=== PATIENT | male | born 1985 | race African-American/Black ===

== ENCOUNTER 2018-02-18 09:27 | Inpatient (IN) | payer OTHER ==
[2018-02-18 09:54] VITALS: BMI 25.1
--- NOTE | 2018-02-18 12:55 | HP ---
CIWA Score - CIWA Score Nausea/Vomitin Muscle Tremors: 3 Anxiety: 3 Agitation: 3 Paroxysmal Sweats: 1-Minimal Palms Moist Orientation: 0-Oriented Tacttile Disturbances: 1-Very Mild Itch/Numbness Auditory Disturbances: 1-Very Mild Visual Disturbances: 0-None Headache: 2-Mild CIWA-Ar Total Score: 17 Admission ROS BHS - HPI Chief Complaint: i need help to stop drinking alcohol,marijuana, Allergies/Adverse Reactions: Allergies Allergy/AdvReac Type Severity Reaction Status Date / Time No Known Allergies Allergy Verified 02/18/18 10:05 History of Present Illness: thi s32 years old male with alcohol and marijuana dependence,seeking detox, withdrawal symptom,last detox [facility] 12/06 not completed syncope htn ,peptic ulcer, nicotine dependence multiple admissions for detox but keep relapsing bipolar disorder longest period of sobriety 2 months seen in [place] last night Exam Limitations: No Limitations - Ebola screening Have you traveled outside of the country in the last 21 days: No Have you been sick,other than usual withdrawal symptoms: No - Review of Systems Constitutional: Loss of Appetite, Malaise, Night Sweats, Changes in sleep, Weakness EENT: reports: Tearing, Nose Congestion Respiratory: reports: No Symptoms reported Cardiac: reports: Palpitations GI: reports: Diarrhea, Nausea, Vomiting, Abdominal cramping : reports: No Symptoms Reported Musculoskeletal: reports: Back Pain, Muscle Pain Integumentary: reports: Dryness Neuro: reports: Headache, Tremors Endocrine: reports: No Symptoms Reported Hematology: reports: No Symptoms Reported Psychiatric: reports: No Sypmtoms Reported, Judgement Intact, Mood/Affect Appropiate, Orientated x3 (bipolar disorder) Patient History - Patient Medical History Hx Anemia: No Hx Asthma: No Hx Chronic Obstructive Pulmonary Disease (COPD): No Hx Cancer: No Hx Cardiac Disorders: No Hx Hypertension: Yes (non compliant with meds.) Hx Hypercholesterolemia: No Hx Pacemaker: No HX Cerebrovascular Accident: No Hx Seizures: No Hx Dementia: No Hx Diabetes: No Hx Gastrointestinal Disorders: Yes (peptic ulcer) Hx Liver Disease: No Hx Genitourinary Disorders: No Hx Sexually Transmitted Disorders: No Hx Renal Disease (ESRD): No Hx Thyroid Disease: No Hx Human Immunodeficiency Virus (HIV): No (last 12/06 negative) Hx Hepatitis C: No Hx Depression: Yes Hx Suicide Attempt: No Hx Bipolar Disorder: Yes Hx Schizophrenia: No Other Medical History: no suicidal,no homicidal - Patient Surgical History Past Surgical History: Yes Other Surgical History: R inguinal hernia repair.in 1995 - PPD History Previous Implant?: Yes Documented Results: Negative w/o proof Implanted On Prior [facility] Admission?: No PPD to be Administered?: Yes - Smoking Cessation Smoking history: Current every day smoker Have you smoked in the past 12 months: Yes Aproximately how many cigarettes per day: 10 Hx Chewing Tobacco Use: No Initiated information on smoking cessation: Yes 'Breaking Loose' booklet given: 02/18/18 - Substance & Tx. History Hx Alcohol Use: Yes Hx Substance Use: Yes Substance Use Type: Alcohol, Cocaine, Marijuana Hx Substance Use Treatment: Yes ([facility] 12/06) - Substances Abused Alcohol Route: Oral Frequency: Daily Amount used: 1 PINT OF RUM AND UP Age of first use: 12 Date of Last Use: 02/17/18 Marijuana/Hashish Route: Smoking Frequency: Daily Amount used: 5-6 BLUNTS Age of first use: 14 Date of Last Use: 02/17/18 PCP Route: Smoking Frequency: 1-3 times last 30 days Amount used: $60 Age of first use: 13 Date of Last Use: 02/11/18 Cocaine Route: Inhalation Frequency: 1-2 times per week Amount used: 1 AND 1/2 BAGS Age of first use: 15 Date of Last Use: 02/11/18 Family Disease History - Family Disease History Family Disease History: Heart Disease: Father (alcohol,), Other: Father , Mother (alcohol,) Admission Physical Exam [facility] - Vital Signs Vital Signs: Vital Signs - 24 hr 02/18/18 09:52 Temperature 97.9 F Pulse Rate 73 Respiratory 18 Rate Blood Pressure 138/93 - Physical General Appearance: Yes: Moderate Distress, Tremorous, Irritable, Sweating, Anxious HEENTM: Yes: Normal ENT Inspection, FREDIS, Pharynx Normal Respiratory: Yes: Lungs Clear, Normal Breath Sounds, No Respiratory Distress Neck: Yes: Within Normal Limits, Supple, Trachea in good position Breast: Yes: Within Normal Limits Cardiology: Yes: Within Normal Limits, Regular Rhythm, Regular Rate, S1, S2 Abdominal: Yes: Within Normal Limits, Normal Bowel Sounds, Non Tender, Flat, Soft, Surgical Scar Genitourinary: Yes: Within Normal Limits Back: Yes: Muscle Spasm Musculoskeletal: Yes: full range of Motion, Back pain, Muscle Pain Extremities: Yes: Tremors Neurological: Yes: senior maintenance machinist II-XII NML intact, Fully Oriented, Alert, Motor Strength 5/5 Integumentary: Yes: Dry Lymphatic: Yes: Within Normal Limits - Diagnostic (1) Alcohol dependence with uncomplicated withdrawal Current Visit: Yes Status: Acute (2) Cocaine dependence Current Visit: Yes Status: Acute (3) Cannabis dependence Current Visit: Yes Status: Acute (4) PCP (phencyclidine) abuse Current Visit: Yes Status: Acute (5) Essential hypertension Current Visit: Yes Status: Acute (6) Nicotine dependence Current Visit: Yes Status: Acute (7) Bipolar disorder Current Visit: Yes Status: Acute Cleared for Admission [facility] - Detox or Rehab [facility] Level of Care: Medically Managed Detox Regimen/Protocol: Librium [facility] Breath Alcohol Content Breath Alcohol Content: 0 Urine Drug Screen - Results Drug Screen Negative: No Urine Drug Screen Results: THC-Marijuana
[2018-02-18] MEDS ORDERED: chlordiazePOXIDE HCL 25 MG CAPSULE PO PRN (13:05)
[2018-02-18] MEDS ORDERED: MAG HYDROX/AL HYDROX/SIMETH 30 ML UNIT-DOSE CUP PO PRN (13:05)
[2018-02-18] MEDS ORDERED: LOPERAMIDE HCL 2 MG CAPSULE PO PRN (13:05)
[2018-02-18] MEDS ORDERED: guaiFENesin/D-METHORPHAN HB 10 ML UNIT-DOSE CUPS PO PRN (13:05)
[2018-02-18] MEDS ORDERED: P-EPHED 60MG/TRIPROLIDI 2.5MG TABLET PO PRN (13:05)
[2018-02-18] MEDS ORDERED: MAGNESIUM HYDROX 2400MG/30ML ORAL SUSPENSION 30 ML CUP PO PRN (13:05)
[2018-02-18] MEDS ORDERED: ACETAMINOPHEN 325 MG TABLET (FP) PO PRN (13:05)
[2018-02-18] MEDS ORDERED: hydrOXYzine PAMOATE 50 MG CAPSULE (FP) PO PRN (13:05)
[2018-02-18] MEDS ORDERED: MENTHOL/PHENOL 1 EACH UD MM PRN (13:05)
[2018-02-18] MEDS ORDERED: MAGNESIUM CITRATE 300 ML BOTTLE PO PRN (13:05)
[2018-02-18] MEDS: IBUPROFEN 400 MG TABLET (FP) PO PRN (14:34)
--- NOTE | 2018-02-18 15:49 | EKG ---
Test Reason : Blood Pressure : / mmHG Vent. Rate : 067 BPM Atrial Rate : 067 BPM P-R Int : 148 ms QRS Dur : 094 ms QT Int : 414 ms P-R-T Axes : 074 -06 021 degrees QTc Int : 437 ms NORMAL SINUS RHYTHM POSSIBLE LEFT ATRIAL ENLARGEMENT INCOMPLETE RIGHT BUNDLE BRANCH BLOCK POSSIBLE ANTERIOR INFARCT , AGE UNDETERMINED ABNORMAL ECG NO PREVIOUS ECGS AVAILABLE Confirmed by LUANN MISHRA MD ([id number]) on 02/18/2018 3:49:13 PM Referred By: Indira Costa Confirmed By:LUANN MISHRA MD
[2018-02-18] MEDS: chlordiazePOXIDE HCL 25 MG CAPSULE PO SCH ×2 (17:41→22:48)
[2018-02-18 19:03] LABS: URINE APPEARANCE TURBID; URINE BILIRUBIN NEGATIVE (<2.0 mg/dL); URINE COLOR AMBER; URINE GLUCOSE (UA) NEGATIVE (NEGATIVE); URINE KETONE TRACE (NEGATIVE); URINE NITRITE NEGATIVE (NEGATIVE); URINE PROTEIN NEGATIVE (NEGATIVE); URINE UROBILINOGEN NEGATIVE mg/dL (0.2-1.0)
[2018-02-18 19:09] LABS: URINE LEUK ESTERASE 2+ (NEGATIVE)
[2018-02-18 19:18] LABS: EPI CELLS RARE /HPF (FEW); URINE BACTERIA RARE /hpf (NONE SEEN)
[2018-02-18] MEDS: THIAMINE HCL 100 MG TABLET (FP) PO SCH (22:48)
[2018-02-19] MEDS: chlordiazePOXIDE HCL 25 MG CAPSULE PO SCH ×4 (05:29→22:19)
[2018-02-19 09:48] LABS: HEMATOCRIT 41.5 % (35.4-49); MCH 33.8 pg (25.7-33.7); MCHC 33.8 g/dl (32.0-35.9); MEAN PLT VOLUME 9.5 fl (7.5-11.1); PLATELET COUNT 165 K/MM3 (134-434); RBC 4.15 M/mm3 (4.00-5.60); RDW 13.1 % (11.9-15.9); WHITE BLOOD COUNT 10.7 K/mm3 (4.0-10.0)
[2018-02-19] MEDS: PRENATAL VITAMINS W/ FOLIC ACID TABLET (FP) PO SCH (10:05)
[2018-02-19 10:20] LABS: ALBUMIN 4.1 g/dl (3.4-5.0); ANION GAP 8 MMOL/L (8-16); BLOOD UREA NITROGEN 15 mg/dL (7-18); CALCIUM 8.6 mg/dL (8.5-10.1); CHLORIDE 100 mmol/L (98-107); CO2 28 mmol/L (21-32); GLUCOSE,RANDOM 73 mg/dL (74-106); POTASSIUM 4.1 mmol/L (3.5-5.1); SODIUM 136 mmol/L (136-145)
[2018-02-19 10:23] LABS: ALK PHOS 65 U/L (45-117); BILIRUBIN,TOTAL 0.5 mg/dL (0.2-1.0); CREATININE 1.1 mg/dL (0.7-1.3); SGOT/AST 394 U/L (15-37); SGPT/ALT 109 U/L (12-78); TOT PROT 8.1 g/dl (6.4-8.2)
--- NOTE | 2018-02-19 13:46 | CONSULT ---
[facility] Psychiatric Consult - Data Date of interview: 02/19/18 Admission source: [facility] Identifying data: First admission to [facility] for this 32 y/o AA male, self- referred for detoxification treatment (alcohol,cannabis dependence).Patient is single,a father of one,domiciled,unemployed and supported on SSI benefits since age [age] (learning disorder as per self-report). Substance Abuse History: Discussed with the patient in this session.Mr Rika admits to sporadic use of phencyclidine,cocaine,canabis and alcohol (one pint of rum daily) since age 14-15.More details in current [facility] reports as follows : Smoking history: Current every day smoker. Have you smoked in the past 12 months: Yes. Aproximately how many cigarettes per day: 10. Hx Chewing Tobacco Use: No. Initiated information on smoking cessation: Yes. 'Breaking Loose' booklet given: 02/18/18. - Substance & Tx. History. Hx Alcohol Use: Yes. Hx Substance Use: Yes. Substance Use Type: Alcohol, Cocaine, Marijuana. Hx Substance Use Treatment: Yes ([facility] 12/06). - Substances Abused. Alcohol. Route: Oral. Frequency: Daily. Amount used: 1 PINT OF RUM AND UP. Age of first use: 12. Date of Last Use: 02/17/18. Marijuana/Hashish. Route: Smoking. Frequency: Daily. Amount used: 5-6 BLUNTS. Age of first use: 14. Date of Last Use: 02/17/18. PCP. Route: Smoking. Frequency: 1-3 times last 30 days. Amount used: $60. Age of first use: 13. Date of Last Use: 02/11. Cocaine. Route: Inhalation. Frequency: 1-2 times per week. Amount used: 1 AND 1/2 BAGS. Age of first use: 15. Date of Last Use: 02/11/18 Medical History: Remarkable for chronic lumbar pain,head trauma from fall from stairs (four months ago during state of ETOH intoxication) with resulting surgery,migraine headaches,peptic ulcer disease,hypertension and history of right inguinal herniorraphy. Psychiatric History: Patient denies history of psychiatric hospitalizations but he endorses prior contact with psychiatrist at the [facility] (2-3 years ago).Diagnosed, at the time, with Bipolar Disorder.Never placed on psychotropic medications due to failure to keep his intake appointments.Has been lost to follow-up for several months.Mr Meléndez denies history of suicide attempts. Physical/Sexual Abuse/Trauma History: Patient denies. Additional Comment: Urine Drug Screen Results: THC-Marijuana.Noted. Mental Status Exam - Mental Status Exam Alert and Oriented to: Time, Place, Person Cognitive Function: Good Patient Appearance: Well Groomed (bald,noted linear scar on right side of scalp) Mood: Withdrawn, Anxious (mildly anxious), Hopeful Affect: Appropriate, Normal Range Patient Behavior: Fatigued, Appropriate, Cooperative Speech Pattern: Clear, Appropriate Voice Loudness: Normal Thought Process: Goal Oriented Thought Disorder: Not Present Hallucinations: Denies Suicidal Ideation: Denies Homicidal Ideation: Denies Insight/Judgement: Poor Sleep: Well Appetite: Good Muscle strength/Tone: Normal Gait/Station: Normal Psychiatric Findings - Problem List ([place] 1, 2,3) (1) Alcohol dependence with uncomplicated withdrawal Current Visit: Yes Status: Acute (2) Cannabis dependence Current Visit: Yes Status: Acute (3) Cocaine dependence Current Visit: Yes Status: Acute (4) PCP (phencyclidine) abuse Current Visit: Yes Status: Acute Comment: As per self-report.Toxicology is negative for PCP at time of admission. (5) Nicotine dependence Current Visit: Yes Status: Acute (6) Substance induced mood disorder Current Visit: Yes Status: Suspected (7) Insomnia Current Visit: Yes Status: Acute Comment: Moderate.Good response to melatonin at bedside. - Initial Treatment Plan Initial Treatment Plan: Psychoeducation.Sleep hygiene discussed.Group therapy.Detoxification in progress.Observation.
--- NOTE | 2018-02-19 14:33 | PN ---
[facility] CIWA - CIWA Score Nausea/Vomitin-Mild Nausea/No Vomiting Muscle Tremors: 4-Moderate,w/Arms Extend Anxiety: 4-Mod. Anxious/Guarded Agitation: 4-Moderately Restless Paroxysmal Sweats: 1-Minimal Palms Moist Orientation: 0-Oriented Tacttile Disturbances: 0-None Auditory Disturbances: 0-None Visual Disturbances: 0-None Headache: 1-Very Mild CIWA-Ar Total Score: 15 BHS Progress Note (SOAP) Subjective: sweat tremor trouble sleep at night restlessness anxiety Objective: 02/19/18 14:30 Vital Signs Temperature 98.4 F 02/19/18 13:51 Pulse Rate 56 L 02/19/18 13:51 Respiratory Rate 18 02/19/18 13:51 Blood Pressure 123/76 02/19/18 13:51 O2 Sat by Pulse Oximetry (%) Laboratory Last Values WBC 10.7 K/mm3 (4.0-10.0) H 02/19/18 06:00 RBC 4.15 M/mm3 (4.00-5.60) 02/19/18 06:00 Hgb 14.0 GM/dL (11.7-16.9) 02/19/18 06:00 Hct 41.5 % (35.4-49) 02/19/18 06:00 MCV 100.0 fl (80-96) H 02/19/18 06:00 MCH 33.8 pg (25.7-33.7) H 02/19/18 06:00 MCHC 33.8 g/dl (32.0-35.9) 02/19/18 06:00 RDW 13.1 % (11.9-15.9) 02/19/18 06:00 Plt Count 165 K/MM3 (134-434) 02/19/18 06:00 MPV 9.5 fl (7.5-11.1) 02/19/18 06:00 Sodium 136 mmol/L (136-145) 02/19/18 06:00 Potassium 4.1 mmol/L (3.5-5.1) 02/19/18 06:00 Chloride 100 mmol/L (98-107) 02/19/18 06:00 Carbon Dioxide 28 mmol/L (21-32) 02/19/18 06:00 Anion Gap 8 MMOL/L (8-16) 02/19/18 06:00 BUN 15 mg/dL (7-18) 02/19/18 06:00 Creatinine 1.1 mg/dL (0.7-1.3) 02/19/18 06:00 Creat Clearance w eGFR > 60 (>60) 02/19/18 06:00 Random Glucose 73 mg/dL (74-106) L 02/19/18 06:00 Calcium 8.6 mg/dL (8.5-10.1) 02/19/18 06:00 Total Bilirubin 0.5 mg/dL (0.2-1.0) 02/19/18 06:00 AST 394 U/L (15-37) H 02/19/18 06:00 ALT 109 U/L (12-78) H 02/19/18 06:00 Alkaline Phosphatase 65 U/L (45-117) 02/19/18 06:00 Total Protein 8.1 g/dl (6.4-8.2) 02/19/18 06:00 Albumin 4.1 g/dl (3.4-5.0) 02/19/18 06:00 Urine Color [place] 02/18/18 18:30 Urine Appearance Turbid 02/18/18 18:30 Urine pH 6.0 (5.0-8.0) 02/18/18 18:30 Ur Specific [place] 1.020 (1.001-1.035) 02/18/18 18:30 Urine Protein Negative (NEGATIVE) 02/18/18 18:30 Urine Glucose (UA) Negative (NEGATIVE) 02/18/18 18:30 Urine Ketones Trace (NEGATIVE) H 02/18/18 18:30 Urine Blood 1+ (NEGATIVE) H 02/18/18 18:30 Urine Nitrite Negative (NEGATIVE) 02/18/18 18:30 Urine Bilirubin Negative (<2.0 mg/dL) 02/18/18 18:30 Urine Urobilinogen Negative mg/dL (0.2-1.0) 02/18/18 18:30 Ur Leukocyte Esterase 2+ (NEGATIVE) H 02/18/18 18:30 Urine WBC (Auto) 24 /hpf (3-5) 02/18/18 18:30 Urine RBC (Auto) 1 /hpf (0-3) 02/18/18 18:30 Ur Epithelial Cells Rare /HPF (FEW) 02/18/18 18:30 Urine Bacteria Rare /hpf (NONE SEEN) 02/18/18 18:30 RPR Titer Nonreactive (NONREACTIVE) 02/19/18 06:00 HIV 1&2 Antibody Screen Negative 02/18/18 11:40 HIV P24 Antigen Negative 02/18/18 11:40 repeat ast alt ua increase oral fluid Assessment: 02/19/18 14:31 alcohol withdrawal sx Plan: continue alcohol detox increase oral fluid personal hygiene bactrim ds bid
[2018-02-19] MEDS: IBUPROFEN 400 MG TABLET (FP) PO PRN (17:02)
[2018-02-19 20:24] LABS: URINE APPEARANCE CLEAR; URINE BILIRUBIN NEGATIVE (<2.0 mg/dL); URINE COLOR YELLOW; URINE GLUCOSE (UA) NEGATIVE (NEGATIVE); URINE KETONE NEGATIVE (NEGATIVE); URINE LEUK ESTERASE NEGATIVE (NEGATIVE); URINE NITRITE NEGATIVE (NEGATIVE); URINE PROTEIN NEGATIVE (NEGATIVE)
[2018-02-19] MEDS: THIAMINE HCL 100 MG TABLET (FP) PO SCH (22:19)
[2018-02-19] MEDS: SULFAMETHOXAZOLE/TRIMETHOPRIM 800MG/160MG D.S. TABLET PO SCH (22:19)
[2018-02-19] MEDS: MELATONIN 5 MG TABLETS PO PRN (22:20)
[2018-02-20] MEDS: chlordiazePOXIDE HCL 25 MG CAPSULE PO SCH ×2 (06:09→10:07)
[2018-02-20] MEDS: SULFAMETHOXAZOLE/TRIMETHOPRIM 800MG/160MG D.S. TABLET PO SCH ×2 (10:07→22:46)
[2018-02-20] MEDS: PRENATAL VITAMINS W/ FOLIC ACID TABLET (FP) PO SCH (10:07)
[2018-02-20 10:58] LABS: SGOT/AST 212 U/L (15-37); SGPT/ALT 107 U/L (12-78)
--- NOTE | 2018-02-20 12:38 | PN ---
[facility] CIWA - CIWA Score Nausea/Vomitin-No Nausea/No Vomiting Muscle Tremors: 4-Moderate,w/Arms Extend Anxiety: 4-Mod. Anxious/Guarded Agitation: 3 Paroxysmal Sweats: 1-Minimal Palms Moist Orientation: 0-Oriented Tacttile Disturbances: 0-None Auditory Disturbances: 0-None Visual Disturbances: 0-None Headache: 0-None Present CIWA-Ar Total Score: 12 BHS Progress Note (SOAP) Subjective: sweat tremor gi distress restlessness wants own shoes to walking around the hallway Objective: 02/20/18 12:39 Vital Signs Temperature 97.7 F 02/20/18 09:37 Pulse Rate 64 02/20/18 09:37 Respiratory Rate 20 02/20/18 09:37 Blood Pressure 116/70 02/20/18 09:37 O2 Sat by Pulse Oximetry (%) Laboratory Last Values WBC 10.7 K/mm3 (4.0-10.0) H 02/19/18 06:00 RBC 4.15 M/mm3 (4.00-5.60) 02/19/18 06:00 Hgb 14.0 GM/dL (11.7-16.9) 02/19/18 06:00 Hct 41.5 % (35.4-49) 02/19/18 06:00 MCV 100.0 fl (80-96) H 02/19/18 06:00 MCH 33.8 pg (25.7-33.7) H 02/19/18 06:00 MCHC 33.8 g/dl (32.0-35.9) 02/19/18 06:00 RDW 13.1 % (11.9-15.9) 02/19/18 06:00 Plt Count 165 K/MM3 (134-434) 02/19/18 06:00 MPV 9.5 fl (7.5-11.1) 02/19/18 06:00 Sodium 136 mmol/L (136-145) 02/19/18 06:00 Potassium 4.1 mmol/L (3.5-5.1) 02/19/18 06:00 Chloride 100 mmol/L (98-107) 02/19/18 06:00 Carbon Dioxide 28 mmol/L (21-32) 02/19/18 06:00 Anion Gap 8 MMOL/L (8-16) 02/19/18 06:00 BUN 15 mg/dL (7-18) 02/19/18 06:00 Creatinine 1.1 mg/dL (0.7-1.3) 02/19/18 06:00 Creat Clearance w eGFR > 60 (>60) 02/19/18 06:00 Random Glucose 73 mg/dL (74-106) L 02/19/18 06:00 Calcium 8.6 mg/dL (8.5-10.1) 02/19/18 06:00 Total Bilirubin 0.5 mg/dL (0.2-1.0) 02/19/18 06:00 AST 212 U/L (15-37) H D 02/20/18 07:40 ALT 107 U/L (12-78) H 02/20/18 07:40 Alkaline Phosphatase 65 U/L (45-117) 02/19/18 06:00 Ammonia 61.69 umol/L (11-32) H 02/20/18 07:40 Total Protein 8.1 g/dl (6.4-8.2) 02/19/18 06:00 Albumin 4.1 g/dl (3.4-5.0) 02/19/18 06:00 Urine Color Yellow 02/19/18 15:10 Urine Appearance Clear 02/19/18 15:10 Urine pH 8.0 (5.0-8.0) D 02/19/18 15:10 Ur Specific [place] 1.017 (1.001-1.035) 02/19/18 15:10 Urine Protein Negative (NEGATIVE) 02/19/18 15:10 Urine Glucose (UA) Negative (NEGATIVE) 02/19/18 15:10 Urine Ketones Negative (NEGATIVE) 02/19/18 15:10 Urine Blood Negative (NEGATIVE) 02/19/18 15:10 Urine Nitrite Negative (NEGATIVE) 02/19/18 15:10 Urine Bilirubin Negative (<2.0 mg/dL) 02/19/18 15:10 Urine Urobilinogen 2.0 mg/dL (0.2-1.0) 02/19/18 15:10 Ur Leukocyte Esterase Negative (NEGATIVE) 02/19/18 15:10 Urine WBC (Auto) 24 /hpf (3-5) 02/18/18 18:30 Urine RBC (Auto) 1 /hpf (0-3) 02/18/18 18:30 Ur Epithelial Cells Rare /HPF (FEW) 02/18/18 18:30 Urine Bacteria Rare /hpf (NONE SEEN) 02/18/18 18:30 RPR Titer Nonreactive (NONREACTIVE) 02/19/18 06:00 HIV 1&2 Antibody Screen Negative 02/18/18 11:40 HIV P24 Antigen Negative 02/18/18 11:40 lab noted lactulose Assessment: 02/20/18 12:41 withdrawal sx 02/20/18 12:43 ammonia elevation Plan: continue detox lactulose
[2018-02-20] MEDS: IBUPROFEN 400 MG TABLET (FP) PO PRN (13:57)
[2018-02-20] MEDS: LACTULOSE 20 GM/30 ML UDC (FOR ORAL USE ONLY) PO SCH ×2 (13:57→22:46)
[2018-02-20] MEDS: chlordiazePOXIDE 5 MG CAPSULE PO SCH ×2 (18:16→22:46)
[2018-02-20] MEDS: THIAMINE HCL 100 MG TABLET (FP) PO SCH (22:46)
[2018-02-20] MEDS: MELATONIN 5 MG TABLETS PO PRN (22:47)
[2018-02-21] MEDS: chlordiazePOXIDE 5 MG CAPSULE PO SCH ×2 (05:36→10:05)
[2018-02-21] MEDS: LACTULOSE 20 GM/30 ML UDC (FOR ORAL USE ONLY) PO SCH ×3 (05:38→22:19)
[2018-02-21] MEDS: BACLOFEN 10 MG TABLET (FP) PO PRN ×2 (05:38→17:52)
[2018-02-21 09:57] LABS: SGOT/AST 116 U/L (15-37); SGPT/ALT 97 U/L (12-78)
[2018-02-21] MEDS: SULFAMETHOXAZOLE/TRIMETHOPRIM 800MG/160MG D.S. TABLET PO SCH ×2 (10:05→22:19)
[2018-02-21] MEDS: PRENATAL VITAMINS W/ FOLIC ACID TABLET (FP) PO SCH (10:05)
--- NOTE | 2018-02-21 11:38 | PN ---
S Progress Note (SOAP) Subjective: sleep better at night no tremor no gi distress Objective: 02/21/18 11:38 Vital Signs Temperature 97.7 F 02/21/18 09:29 Pulse Rate 76 02/21/18 09:29 Respiratory Rate 16 02/21/18 09:29 Blood Pressure 122/71 02/21/18 09:29 O2 Sat by Pulse Oximetry (%) Laboratory Last Values WBC 10.7 K/mm3 (4.0-10.0) H 02/19/18 06:00 RBC 4.15 M/mm3 (4.00-5.60) 02/19/18 06:00 Hgb 14.0 GM/dL (11.7-16.9) 02/19/18 06:00 Hct 41.5 % (35.4-49) 02/19/18 06:00 MCV 100.0 fl (80-96) H 02/19/18 06:00 MCH 33.8 pg (25.7-33.7) H 02/19/18 06:00 MCHC 33.8 g/dl (32.0-35.9) 02/19/18 06:00 RDW 13.1 % (11.9-15.9) 02/19/18 06:00 Plt Count 165 K/MM3 (134-434) 02/19/18 06:00 MPV 9.5 fl (7.5-11.1) 02/19/18 06:00 Sodium 136 mmol/L (136-145) 02/19/18 06:00 Potassium 4.1 mmol/L (3.5-5.1) 02/19/18 06:00 Chloride 100 mmol/L (98-107) 02/19/18 06:00 Carbon Dioxide 28 mmol/L (21-32) 02/19/18 06:00 Anion Gap 8 MMOL/L (8-16) 02/19/18 06:00 BUN 15 mg/dL (7-18) 02/19/18 06:00 Creatinine 1.1 mg/dL (0.7-1.3) 02/19/18 06:00 Creat Clearance w eGFR > 60 (>60) 02/19/18 06:00 Random Glucose 73 mg/dL (74-106) L 02/19/18 06:00 Calcium 8.6 mg/dL (8.5-10.1) 02/19/18 06:00 Total Bilirubin 0.5 mg/dL (0.2-1.0) 02/19/18 06:00 AST 116 U/L (15-37) H D 02/21/18 07:30 ALT 97 U/L (12-78) H 02/21/18 07:30 Alkaline Phosphatase 65 U/L (45-117) 02/19/18 06:00 Ammonia 61.69 umol/L (11-32) H 02/20/18 07:40 Total Protein 8.1 g/dl (6.4-8.2) 02/19/18 06:00 Albumin 4.1 g/dl (3.4-5.0) 02/19/18 06:00 Urine Color Yellow 02/19/18 15:10 Urine Appearance Clear 02/19/18 15:10 Urine pH 8.0 (5.0-8.0) D 02/19/18 15:10 Ur Specific [place] 1.017 (1.001-1.035) 02/19/18 15:10 Urine Protein Negative (NEGATIVE) 02/19/18 15:10 Urine Glucose (UA) Negative (NEGATIVE) 02/19/18 15:10 Urine Ketones Negative (NEGATIVE) 02/19/18 15:10 Urine Blood Negative (NEGATIVE) 02/19/18 15:10 Urine Nitrite Negative (NEGATIVE) 02/19/18 15:10 Urine Bilirubin Negative (<2.0 mg/dL) 02/19/18 15:10 Urine Urobilinogen 2.0 mg/dL (0.2-1.0) 02/19/18 15:10 Ur Leukocyte Esterase Negative (NEGATIVE) 02/19/18 15:10 Urine WBC (Auto) 24 /hpf (3-5) 02/18/18 18:30 Urine RBC (Auto) 1 /hpf (0-3) 02/18/18 18:30 Ur Epithelial Cells Rare /HPF (FEW) 02/18/18 18:30 Urine Bacteria Rare /hpf (NONE SEEN) 02/18/18 18:30 RPR Titer Nonreactive (NONREACTIVE) 02/19/18 06:00 HIV 1&2 Antibody Screen Negative 02/18/18 11:40 HIV P24 Antigen Negative 02/18/18 11:40 lab noted 02/21/18 11:40 continue lactulose patient agrees to follow up with primary care provider Assessment: 02/21/18 11:40 mild withdrawal sx Plan: medically supervised detox
[2018-02-21] MEDS: chlordiazePOXIDE HCL 10 MG CAPSULE PO SCH ×2 (17:52→22:19)
[2018-02-21] MEDS: IBUPROFEN 400 MG TABLET (FP) PO PRN ×2 (17:53→23:18)
[2018-02-21] MEDS: MELATONIN 5 MG TABLETS PO PRN (22:19)
[2018-02-21] MEDS: THIAMINE HCL 100 MG TABLET (FP) PO SCH (22:19)
[2018-02-22] MEDS: chlordiazePOXIDE HCL 10 MG CAPSULE PO SCH (06:19)
[2018-02-22] MEDS: LACTULOSE 20 GM/30 ML UDC (FOR ORAL USE ONLY) PO SCH (06:19)
[2018-02-22 07:39] VITALS: BP 116/73; PULSE 54; TEMP 96.1
--- NOTE | 2018-02-22 10:31 | DS ---
[facility] Detox Discharge Summary Admission Date: 02/18/18 Discharge Date: 02/22/18 - History Present History: Alcohol Dependence Additional Comments: 32 YEARS OLD MALE ADMITTED ON 02/18/18 FOR ALCOHOL WITHDRAWAL SX COMPLETED ALCOHOL DETOX REGIMEN TOLERATED WELL DENIES ALCOHOL WITHDRAWAL SX ALERT ORIENTED X 3 NO ACUTE DISTRESS AFTERCARE TO PRIMARY CARE PROVIDER DR CAVAZOS BP 141/74 PATIENT AGREES TO FOLLOW UP WITH DR CAVAZOS ALSO ELEVATION OF AMMONIA TREATED WITH LACTULOSE TID ENCOURAGE THE PATIENT TO STOCK AND STATION AGENT THE MEDICATIONS FROM THE PHARMACY - Physical Exam Results Vital Signs: Vital Signs Temperature 96.1 F L 02/22/18 07:39 Pulse Rate 54 L 02/22/18 07:39 Respiratory Rate 18 02/22/18 07:39 Blood Pressure 116/73 02/22/18 07:39 O2 Sat by Pulse Oximetry (%) Pertinent Admission Physical Exam Findings: ALCOHOL WITHDRAWAL SX Vital Signs Temperature 96.1 F L 02/22/18 07:39 Pulse Rate 54 L 02/22/18 07:39 Respiratory Rate 18 02/22/18 07:39 Blood Pressure 116/73 02/22/18 07:39 O2 Sat by Pulse Oximetry (%) Laboratory Last Values WBC 10.7 K/mm3 (4.0-10.0) H 02/19/18 06:00 RBC 4.15 M/mm3 (4.00-5.60) 02/19/18 06:00 Hgb 14.0 GM/dL (11.7-16.9) 02/19/18 06:00 Hct 41.5 % (35.4-49) 02/19/18 06:00 MCV 100.0 fl (80-96) H 02/19/18 06:00 MCH 33.8 pg (25.7-33.7) H 02/19/18 06:00 MCHC 33.8 g/dl (32.0-35.9) 02/19/18 06:00 RDW 13.1 % (11.9-15.9) 02/19/18 06:00 Plt Count 165 K/MM3 (134-434) 02/19/18 06:00 MPV 9.5 fl (7.5-11.1) 02/19/18 06:00 Sodium 136 mmol/L (136-145) 02/19/18 06:00 Potassium 4.1 mmol/L (3.5-5.1) 02/19/18 06:00 Chloride 100 mmol/L (98-107) 02/19/18 06:00 Carbon Dioxide 28 mmol/L (21-32) 02/19/18 06:00 Anion Gap 8 MMOL/L (8-16) 02/19/18 06:00 BUN 15 mg/dL (7-18) 02/19/18 06:00 Creatinine 1.1 mg/dL (0.7-1.3) 02/19/18 06:00 Creat Clearance w eGFR > 60 (>60) 02/19/18 06:00 Random Glucose 73 mg/dL (74-106) L 02/19/18 06:00 Calcium 8.6 mg/dL (8.5-10.1) 02/19/18 06:00 Total Bilirubin 0.5 mg/dL (0.2-1.0) 02/19/18 06:00 AST 116 U/L (15-37) H D 02/21/18 07:30 ALT 97 U/L (12-78) H 02/21/18 07:30 Alkaline Phosphatase 65 U/L (45-117) 02/19/18 06:00 Ammonia 61.69 umol/L (11-32) H 02/20/18 07:40 Total Protein 8.1 g/dl (6.4-8.2) 02/19/18 06:00 Albumin 4.1 g/dl (3.4-5.0) 02/19/18 06:00 Urine Color Yellow 02/19/18 15:10 Urine Appearance Clear 02/19/18 15:10 Urine pH 8.0 (5.0-8.0) D 02/19/18 15:10 Ur Specific [place] 1.017 (1.001-1.035) 02/19/18 15:10 Urine Protein Negative (NEGATIVE) 02/19/18 15:10 Urine Glucose (UA) Negative (NEGATIVE) 02/19/18 15:10 Urine Ketones Negative (NEGATIVE) 02/19/18 15:10 Urine Blood Negative (NEGATIVE) 02/19/18 15:10 Urine Nitrite Negative (NEGATIVE) 02/19/18 15:10 Urine Bilirubin Negative (<2.0 mg/dL) 02/19/18 15:10 Urine Urobilinogen 2.0 mg/dL (0.2-1.0) 02/19/18 15:10 Ur Leukocyte Esterase Negative (NEGATIVE) 02/19/18 15:10 Urine WBC (Auto) 24 /hpf (3-5) 02/18/18 18:30 Urine RBC (Auto) 1 /hpf (0-3) 02/18/18 18:30 Ur Epithelial Cells Rare /HPF (FEW) 02/18/18 18:30 Urine Bacteria Rare /hpf (NONE SEEN) 02/18/18 18:30 RPR Titer Nonreactive (NONREACTIVE) 02/19/18 06:00 HIV 1&2 Antibody Screen Negative 02/18/18 11:40 HIV P24 Antigen Negative 02/18/18 11:40 LAB NOTED UTI AMMONIA - Treatment Hospital Course: Detox Protocol Followed, Detoxed Safely, Responded well, Discharged Condition Good, Rehab Referral Accepted Patient has Accepted a Rehab Referral to: DR CAVAZOS - Medication Discharge Medications: Ambulatory Orders Lactulose (Oral Use) [Cephulac -] 20 gm PO TID #90 udc 02/22/18 Sulfamethoxazole/Trimethoprim [Bactrim DS -] 1 each PO BID #10 tablet 02/22/18 - Diagnosis (1) UTI (urinary tract infection) Status: Acute Qualifiers: Urinary tract infection type: site unspecified Hematuria presence: with hematuria Qualified Code(s): N39.0 - Urinary tract infection, site not specified; R31.9 - Hematuria, unspecified (2) Increased ammonia level Status: Acute (3) Alcohol dependence with uncomplicated withdrawal Status: Acute (4) Essential hypertension Status: Chronic (5) Nicotine dependence Status: Acute Qualifiers: Nicotine product type: cigarettes Substance use status: in withdrawal Qualified Code(s): F17.213 - Nicotine dependence, cigarettes, with withdrawal - AMA Did Patient Leave Against Medical Advice: No
== END 2018-02-22 09:30 | disposition home or self-care (01) | DRG 774 ==
LOC: YASAS 09:27 → Y6N 12:55
PROC: HZ2ZZZZ Detoxification Services for Substance Abuse Treatment (ICD-10-PCS; principal; 2018-02-18)
DX: F10.230 Alcohol dependence with withdrawal, uncomplicated (principal); F14.20 Cocaine dependence, uncomplicated; F16.10 Hallucinogen abuse, uncomplicated; F17.213 Nicotine dependence, cigarettes, with withdrawal; F31.9 Bipolar disorder, unspecified; F19.24 Other psychoactive substance dependence with psychoactive substance-induced mood disorder; G47.00 Insomnia, unspecified; N39.0 Urinary tract infection, site not specified; R31.9 Hematuria, unspecified; R79.89 Other specified abnormal findings of blood chemistry; K27.9 Peptic ulcer, site unspecified, unspecified as acute or chronic, without hemorrhage or perforation; I10 Essential (primary) hypertension
CPT/HCPCS: 36415; 80053; 81003; 81015; 82140; 84450; 84460; 85027; 86593; 87389; 93005; 93010; J0475

== ENCOUNTER 2018-10-05 09:21 | Inpatient (IN) | payer OTHER ==
[2018-10-05 09:54] VITALS: BMI 24.5
--- NOTE | 2018-10-05 11:58 | HP ---
CIWA Score Nausea/Vomitin Muscle Tremors: 2 Anxiety: 2 Agitation: 2 Paroxysmal Sweats: 1-Minimal Palms Moist Orientation: 0-Oriented Tacttile Disturbances: 1-Very Mild Itch/Numbness Auditory Disturbances: 1-Very Mild Visual Disturbances: 0-None Headache: 2-Mild CIWA-Ar Total Score: 13 - Admission Criteria OASAS Guidelines: Admission for Medically Managed Detox: Requires at least one of the followin. CIWA greater than 12 2. Seizures within the past 24 hours 3. Delirium tremens within the past 24 hours 4. Hallucinations within the past 24 hours 5. Acute intervention needed for co occurring medical disorder 6. Acute intervention needed for co occurring psychiatric disorder 7. Severe withdrawal that cannot be handled at a lower level of care (continued vomiting, continued diarrhea, abnormal vital signs) requiring intravenous medication and/or fluids 8. Admission ROS BHS - HPI Chief Complaint: i need help to stop drinking alcohol and marijuana Allergies/Adverse Reactions: Allergies Allergy/AdvReac Type Severity Reaction Status Date / Time No Known Allergies Allergy Verified 10/05/18 09:34 History of Present Illness: this 33 years old male with alcohol and marijuana dependence seeking detox, withdrawal symptom, multiple admissions in detox but keep relapsing last detox [facility] 07/09 completed hypertension on medication nicotine dependence 5 cigarette,do not want nicotine replacement insomnia longest sobriety 2 months plan for out patient treatment - Ebola screening Have you traveled outside of the country in the last 21 days: No Have you had contact with anyone from an Ebola affected area: No Do you have a fever: No - Review of Systems Constitutional: Loss of Appetite, Night Sweats, Changes in sleep, Weakness EENT: reports: Tearing, Nose Congestion Respiratory: reports: No Symptoms reported Cardiac: reports: No Symptoms Reported GI: reports: Nausea, Vomiting, Abdominal cramping : reports: No Symptoms Reported Musculoskeletal: reports: Back Pain, Muscle Pain Integumentary: reports: Dryness Neuro: reports: Headache, Tremors Endocrine: reports: No Symptoms Reported Hematology: reports: No Symptoms Reported Psychiatric: reports: No Sypmtoms Reported, Judgement Intact, Mood/Affect Appropiate, Orientated x3, other (insomnia) Other Systems: Reviewed and Negative Patient History - Patient Medical History Hx Anemia: No Hx Asthma: No Hx Chronic Obstructive Pulmonary Disease (COPD): No Hx Cancer: No Hx Cardiac Disorders: No Hx Hypertension: Yes (non compliant with meds.) Hx Hypercholesterolemia: No Hx Pacemaker: No HX Cerebrovascular Accident: No Hx Seizures: No Hx Dementia: No Hx Diabetes: No Hx Gastrointestinal Disorders: Yes (peptic ulcer on med) Hx Liver Disease: No Hx Genitourinary Disorders: No Hx Sexually Transmitted Disorders: No Hx Renal Disease (ESRD): No Hx Thyroid Disease: No Hx Human Immunodeficiency Virus (HIV): No (last 12/06 negative) Hx Hepatitis C: No Hx Depression: Yes Hx Suicide Attempt: No Hx Bipolar Disorder: Yes (non compliance) Hx Schizophrenia: No Other Medical History: no suicidal,no homicidal - Patient Surgical History Past Surgical History: Yes Other Surgical History: R inguinal hernia repair.in 1995 recurrent - PPD History Previous Implant?: Yes Documented Results: Negative w/proof Implanted On Prior R Admission?: Yes Date: 02/20/18 Results: 0 mm PPD to be Administered?: No - Smoking Cessation Smoking history: Current every day smoker Have you smoked in the past 12 months: Yes Aproximately how many cigarettes per day: 5 Hx Chewing Tobacco Use: No Initiated information on smoking cessation: Yes 'Breaking Loose' booklet given: 10/05/18 - Substance & Tx. History Hx Alcohol Use: Yes Hx Substance Use: Yes Substance Use Type: Alcohol, Marijuana Hx Substance Use Treatment: Yes ([facility] 07/09) - Substances abused Alcohol Substance route: Oral Frequency: Daily Amount used: rum 5 pint,vodka 5 pints Age of first use: 13 Date of last use: 10/05/18 Marijuana/Hashish Substance route: Smoking Frequency: Daily Amount used: $50.00 Age of first use: 13 Date of last use: 10/05/18 Family Disease History - Family Disease History Family Disease History: Heart Disease: Father (alcohol,), Other: Father , Mother (alcohol,) Admission Physical Exam BHS - Vital Signs Vital Signs: Vital Signs - 24 hr 10/05/18 09:45 Temperature 97.2 F L Pulse Rate 74 Respiratory 16 Rate Blood Pressure 127/90 - Physical General Appearance: Yes: Moderate Distress, Tremorous, Irritable, Sweating HEENTM: Yes: Normocephalic, FREDIS, Pharynx Normal Respiratory: Yes: Within Normal Limits, Lungs Clear, Normal Breath Sounds Neck: Yes: Within Normal Limits, Supple, Trachea in good position Breast: Yes: Within Normal Limits Cardiology: Yes: Within Normal Limits, Regular Rate, S1, S2 Abdominal: Yes: Within Normal Limits, Normal Bowel Sounds, Non Tender, Flat, Soft, Surgical Scar (recurrent left inguinal hernia) Genitourinary: Yes: Within Normal Limits Back: Yes: Muscle Spasm Musculoskeletal: Yes: Back pain, Muscle Pain Extremities: Yes: Tremors Neurological: Yes: Within Normal Limits, surveyor rod helper II-XII NML intact, Fully Oriented, Alert, Motor Strength 5/5 Integumentary: Yes: Dry Lymphatic: Yes: Within Normal Limits - Diagnostic (1) Alcohol dependence with uncomplicated withdrawal Current Visit: No Status: Acute (2) Bipolar disorder Current Visit: No Status: Acute (3) Cannabis dependence Current Visit: No Status: Acute (4) Insomnia Current Visit: No Status: Acute Comment: Moderate.Good response to melatonin at bedside. (5) Nicotine dependence Current Visit: No Status: Acute Qualifiers: Nicotine product type: cigarettes Substance use status: in withdrawal Qualified Code(s): F17.213 - Nicotine dependence, cigarettes, with withdrawal (6) Essential hypertension Current Visit: No Status: Chronic (7) Recurrent left inguinal hernia Current Visit: Yes Status: Acute (8) History of peptic ulcer Current Visit: Yes Status: Acute Cleared for Admission S - Detox or Rehab [facility] Level of Care: Medically Managed Detox Regimen/Protocol: Librium Breathalyzer - Breathalyzer Breathalyzer: 0 Urine Drug Screen - Test Device Lot number: [id number] Expiration date: 05/20/20 - Control Is test valid?: Yes - Results Drug screen NEGATIVE: No Urine drug screen results: THC-Marijuana, BZO-Benzodiazepines Inpatient Rehab Admission - Rehab Decision to Admit Inpatient rehab admission?: No
[2018-10-05] MEDS ORDERED: MAG HYDROX/AL HYDROX/SIMETH 30 ML UNIT-DOSE CUP PO PRN (12:08)
[2018-10-05] MEDS ORDERED: MAGNESIUM CITRATE 300 ML BOTTLE PO PRN (12:08)
[2018-10-05] MEDS ORDERED: ACETAMINOPHEN 325 MG TABLET (FP) PO PRN (12:08)
[2018-10-05] MEDS ORDERED: BISMUTH SUBSALICYLATE 524 MG/30 ML UD PO PRN (12:08)
[2018-10-05] MEDS ORDERED: MENTHOL/PHENOL 1 EACH UD MM PRN (12:08)
[2018-10-05] MEDS ORDERED: MAGNESIUM HYDROX 2400MG/30ML ORAL SUSPENSION 30 ML CUP PO PRN (12:08)
[2018-10-05] MEDS ORDERED: IBUPROFEN 400 MG TABLET (FP) PO PRN (12:08)
[2018-10-05] MEDS ORDERED: chlordiazePOXIDE HCL 25 MG CAPSULE PO PRN (12:08)
[2018-10-05 14:49] LABS: HEMATOCRIT 39.3 % (35.4-49); HEMOGLOBIN 13.5 GM/dL (11.7-16.9); MCH 33.8 pg (25.7-33.7); MCHC 34.2 g/dl (32.0-35.9); MEAN CELL VOLUME 98.9 fl (80-96); MEAN PLT VOLUME 8.1 fl (7.5-11.1); PLATELET COUNT 230 K/MM3 (134-434); RBC 3.98 M/mm3 (4.00-5.60); RDW 12.9 % (11.9-15.9); WHITE BLOOD COUNT 3.6 K/mm3 (4.0-10.0)
[2018-10-05 15:10] LABS: ALBUMIN 3.7 g/dl (3.4-5.0); ALK PHOS 67 U/L (45-117); ANION GAP 5 MMOL/L (8-16); BILIRUBIN,TOTAL 0.3 mg/dL (0.2-1); BLOOD UREA NITROGEN 17 mg/dL (7-18); CALCIUM 9.2 mg/dL (8.5-10.1); CHLORIDE 102 mmol/L (98-107); CO2 28 mmol/L (21-32); CREATININE 0.7 mg/dL (0.55-1.3); GLUCOSE,RANDOM 79 mg/dL (74-106); POTASSIUM 4.2 mmol/L (3.5-5.1); SGOT/AST 29 U/L (15-37); SGPT/ALT 37 U/L (13-61); SODIUM 135 mmol/L (136-145); TOT PROT 7.3 g/dl (6.4-8.2)
[2018-10-05 16:20] LABS: EPI CELLS 4.5 /HPF (0-5/HPF); PH,URINE 7.5 (5.0-8.0); URINE APPEARANCE CLEAR; URINE BACTERIA 22.3 /hpf (NEGATIVE); URINE BILIRUBIN NEGATIVE (NEGATIVE); URINE CASTS 1 /lpf (0-8); URINE COLOR YELLOW; URINE GLUCOSE (UA) NEGATIVE (NEGATIVE); URINE KETONE TRACE (NEGATIVE); URINE LEUK ESTERASE TRACE (NEGATIVE); URINE NITRITE NEGATIVE (NEGATIVE); URINE PROTEIN NEGATIVE (NEGATIVE); URINE RBC 1 /hpf (0-4); URINE UROBILINOGEN 0.2 mg/dL (0.2-1.0); URINE WBC 7 /hpf (0-5)
[2018-10-05] MEDS: chlordiazePOXIDE HCL 25 MG CAPSULE PO SCH ×2 (17:30→22:16)
[2018-10-05] MEDS: THIAMINE HCL 100 MG TABLET (FP) PO SCH (22:16)
[2018-10-05] MEDS: RANITIDINE HCL 150 MG TABLET (FP) PO SCH (22:16)
[2018-10-05] MEDS: MELATONIN 5 MG TABLETS PO PRN (22:17)
[2018-10-06] MEDS: chlordiazePOXIDE HCL 25 MG CAPSULE PO SCH ×4 (06:01→22:06)
[2018-10-06] MEDS: RANITIDINE HCL 150 MG TABLET (FP) PO SCH ×2 (10:39→22:06)
[2018-10-06] MEDS: PRENATAL VITAMINS W/ FOLIC ACID TABLET (FP) PO SCH (10:39)
[2018-10-06] MEDS: amLODIPine BESYLATE 2.5 MG TABLET (FP) PO SCH (10:41)
--- NOTE | 2018-10-06 11:23 | CONSULT ---
[facility] Psychiatric Consult - Data Date of interview: 10/06/18 Admission source: [facility] Identifying data: Patient is a 33 year old single male, father one, unemployed, resides with sister but has to search for a place of residence, and is supported by [facility]. This is one of multiple admissions for patient. Patient admitted to for alcohol and marijuana dependence. Substance Abuse History: Smoking Cessation. Smoking history: Current every day smoker. Have you smoked in the past 12 months: Yes. Aproximately how many cigarettes per day: 5. Hx Chewing Tobacco Use: No. Initiated information on smoking cessation: Yes. 'Breaking Loose' booklet given: 10/05/18. - Substance & Tx. History. Hx Alcohol Use: Yes. Hx Substance Use: Yes. Substance Use Type : Alcohol, Marijuana. Hx Substance Use Treatment: Yes ([facility] 07/09). - Substances abused. Alcohol. Substance route: Oral. Frequency: Daily. Amount used: rum 5 pint,vodka 5 pints. Age of first use: 13. Date of last use : 10/05/18. Marijuana/Hashish. Substance route: Smoking. Frequency: Daily. Amount used: $50.00. Age of first use: 13. Date of last use: 10/05/18 Medical History: Signifcant for hypertension, peptic ulcer, R inguinal hernia repair Psychiatric History: Patient reports h/o multiple CPEP admissions at [facility] and most recently two months ago at [facility] ago after making statements of wanting to hurt himself while intoxicated. Patient reports a diagnosis of bipolar disorder but has failed to receive prescriptions of medications due to his inability to make his intake appointments. Patient denies suicidal and homicidal ideation. At present he reports feeling stable but is experiencing difficulty sleeping. Physical/Sexual Abuse/Trauma History: denies. Mental Status Exam - Mental Status Exam Alert and Oriented to: Time, Place, Person Cognitive Function: Good Patient Appearance: Well Groomed Mood: Euthymic Affect: Appropriate Patient Behavior: Cooperative Speech Pattern: Appropriate Thought Process: Goal Oriented Thought Disorder: Not Present Hallucinations: Denies Suicidal Ideation: Denies Homicidal Ideation: Denies Insight/Judgement: Poor Sleep: Poorly Appetite: Fair Muscle strength/Tone: Normal Gait/Station: Normal Psychiatric Findings - Problem List ([place] 1, 2,3) (1) Alcohol dependence with uncomplicated withdrawal Current Visit: Yes Status: Acute (2) Cannabis dependence Current Visit: Yes Status: Chronic (3) Nicotine dependence Current Visit: Yes Status: Chronic Qualifiers: Nicotine product type: cigarettes Substance use status: in withdrawal Qualified Code(s): F17.213 - Nicotine dependence, cigarettes, with withdrawal - Initial Treatment Plan Initial Treatment Plan: Psychoeducation provided. Detoxification in progress. Will order Trazodone 50mg HS. Patient made aware of the risk of priapism. Benefits and side effects discussed. Verbal consent given.
--- NOTE | 2018-10-06 14:52 | PN ---
S CIWA - CIWA Score Nausea/Vomitin-Mild Nausea/No Vomiting Muscle Tremors: 4-Moderate,w/Arms Extend Anxiety: 2 Agitation: 3 Paroxysmal Sweats: 1-Minimal Palms Moist Orientation: 0-Oriented Tacttile Disturbances: 0-None Auditory Disturbances: 0-None Visual Disturbances: 0-None Headache: 1-Very Mild CIWA-Ar Total Score: 12 BHS Progress Note (SOAP) Subjective: tremor otherwise doing ok tolerate food and fluid well Objective: 10/06/18 14:50 Vital Signs Temperature 98.2 F 10/06/18 13:38 Pulse Rate 73 10/06/18 13:38 Respiratory Rate 18 10/06/18 13:38 Blood Pressure 118/74 10/06/18 13:38 O2 Sat by Pulse Oximetry (%) Laboratory Last Values WBC 3.6 K/mm3 (4.0-10.0) L 10/05/18 12:30 RBC 3.98 M/mm3 (4.00-5.60) L 10/05/18 12:30 Hgb 13.5 GM/dL (11.7-16.9) 10/05/18 12:30 Hct 39.3 % (35.4-49) 10/05/18 12:30 MCV 98.9 fl (80-96) H 10/05/18 12:30 MCH 33.8 pg (25.7-33.7) H 10/05/18 12:30 MCHC 34.2 g/dl (32.0-35.9) 10/05/18 12:30 RDW 12.9 % (11.9-15.9) 10/05/18 12:30 Plt Count 230 K/MM3 (134-434) D 10/05/18 12:30 MPV 8.1 fl (7.5-11.1) D 10/05/18 12:30 Sodium 135 mmol/L (136-145) L 10/05/18 12:30 Potassium 4.2 mmol/L (3.5-5.1) 10/05/18 12:30 Chloride 102 mmol/L (98-107) 10/05/18 12:30 Carbon Dioxide 28 mmol/L (21-32) 10/05/18 12:30 Anion Gap 5 MMOL/L (8-16) L 10/05/18 12:30 BUN 17 mg/dL (7-18) 10/05/18 12:30 Creatinine 0.7 mg/dL (0.55-1.3) 10/05/18 12:30 Creat Clearance w eGFR 128.34 (>60) 10/05/18 12:30 Random Glucose 79 mg/dL (74-106) 10/05/18 12:30 Calcium 9.2 mg/dL (8.5-10.1) 10/05/18 12:30 Total Bilirubin 0.3 mg/dL (0.2-1) 10/05/18 12:30 AST 29 U/L (15-37) 10/05/18 12:30 ALT 37 U/L (13-61) 10/05/18 12:30 Alkaline Phosphatase 67 U/L (45-117) 10/05/18 12:30 Total Protein 7.3 g/dl (6.4-8.2) 10/05/18 12:30 Albumin 3.7 g/dl (3.4-5.0) 10/05/18 12:30 Urine Color Yellow 10/05/18 12:37 Urine Appearance Clear 10/05/18 12:37 Urine pH 7.5 (5.0-8.0) 10/05/18 12:37 Ur Specific [place] 1.028 (1.010-1.035) 10/05/18 12:37 Urine Protein Negative (NEGATIVE) 10/05/18 12:37 Urine Glucose (UA) Negative (NEGATIVE) 10/05/18 12:37 Urine Ketones Trace (NEGATIVE) H 10/05/18 12:37 Urine Blood Negative (NEGATIVE) 10/05/18 12:37 Urine Nitrite Negative (NEGATIVE) 10/05/18 12:37 Urine Bilirubin Negative (NEGATIVE) 10/05/18 12:37 Urine Urobilinogen 0.2 mg/dL (0.2-1.0) 10/05/18 12:37 Ur Leukocyte Esterase Trace (NEGATIVE) 10/05/18 12:37 Urine WBC (Auto) 7 /hpf (0-5) 10/05/18 12:37 Urine RBC (Auto) 1 /hpf (0-4) 10/05/18 12:37 Urine Casts (Auto) 1 /lpf (0-8) 10/05/18 12:37 U Epithel Cells (Auto) 4.5 /HPF (0-5/HPF) 10/05/18 12:37 Urine Bacteria (Auto) 22.3 /hpf (NEGATIVE) 10/05/18 12:37 RPR Titer Nonreactive (NONREACTIVE) 10/05/18 12:30 HIV 1&2 Antibody Screen Negative 10/05/18 12:30 HIV P24 Antigen Negative 10/05/18 12:30 lab noted Assessment: 10/06/18 14:51 withdrawal sx Plan: continue detox
[2018-10-06] MEDS: ACETAMINOPHEN 325 MG TABLET (FP) PO PRN (16:44)
[2018-10-06] MEDS: traZODone HCL 50 MG TABLET (FP) PO SCH (22:06)
[2018-10-06] MEDS: THIAMINE HCL 100 MG TABLET (FP) PO SCH (22:06)
[2018-10-06] MEDS: IBUPROFEN 600 MG TABLET (FP) PO PRN (22:07)
[2018-10-07] MEDS: ACETAMINOPHEN 325 MG TABLET (FP) PO PRN ×3 (02:40→17:19)
[2018-10-07] MEDS: chlordiazePOXIDE HCL 25 MG CAPSULE PO SCH ×2 (05:38→10:51)
[2018-10-07] MEDS: amLODIPine BESYLATE 2.5 MG TABLET (FP) PO SCH (10:34)
[2018-10-07] MEDS: RANITIDINE HCL 150 MG TABLET (FP) PO SCH ×2 (10:34→22:17)
[2018-10-07] MEDS: PRENATAL VITAMINS W/ FOLIC ACID TABLET (FP) PO SCH (10:34)
[2018-10-07] MEDS: IBUPROFEN 600 MG TABLET (FP) PO PRN ×2 (10:36→22:17)
--- NOTE | 2018-10-07 15:40 | PN ---
S CIWA - CIWA Score Nausea/Vomitin-No Nausea/No Vomiting Muscle Tremors: 3 Anxiety: 3 Agitation: 0-Normal Activity Paroxysmal Sweats: No Perspiration Orientation: 2-Disoriented Date<2 days Tacttile Disturbances: 0-None Auditory Disturbances: 2-Mild Harshness/Frighten Visual Disturbances: 0-None Headache: 3-Moderate CIWA-Ar Total Score: 13 BHS Progress Note (SOAP) Subjective: Anxious, Tremors, H/A. Objective: PATIENT A & O X 2 (UNCERTAIN ABOUT CURRENT DAY / DATE). PATIENT OBSERVED AMBULATING ON UNIT UNASSISTED. IN NO ACUTE DISTRESS. 10/07/18 15:38 Vital Signs Temperature 96.0 F L 10/07/18 13:23 Pulse Rate 63 10/07/18 13:23 Respiratory Rate 18 10/07/18 13:23 Blood Pressure 113/72 10/07/18 13:23 O2 Sat by Pulse Oximetry (%) Laboratory Tests 10/05/18 10/05/18 10/05/18 12:30 12:30 12:30 WBC 3.6 L RBC 3.98 L Hgb 13.5 Hct 39.3 MCV 98.9 H MCH 33.8 H MCHC 34.2 RDW 12.9 Plt Count 230 D MPV 8.1 D Sodium 135 L Potassium 4.2 Chloride 102 Carbon Dioxide 28 Anion Gap 5 L BUN 17 Creatinine 0.7 Creat Clearance w eGFR 128.34 Random Glucose 79 Calcium 9.2 Total Bilirubin 0.3 AST 29 ALT 37 Alkaline Phosphatase 67 Total Protein 7.3 Albumin 3.7 Urine Color Urine Appearance Urine pH Ur Specific [place] Urine Protein Urine Glucose (UA) Urine Ketones Urine Blood Urine Nitrite Urine Bilirubin Urine Urobilinogen Ur Leukocyte Esterase Urine WBC (Auto) Urine RBC (Auto) Urine Casts (Auto) U Epithel Cells (Auto) Urine Bacteria (Auto) RPR Titer Nonreactive HIV 1&2 Antibody Screen HIV P24 Antigen 10/05/18 10/05/18 12:30 12:37 WBC RBC Hgb Hct MCV MCH MCHC RDW Plt Count MPV Sodium Potassium Chloride Carbon Dioxide Anion Gap BUN Creatinine Creat Clearance w eGFR Random Glucose Calcium Total Bilirubin AST ALT Alkaline Phosphatase Total Protein Albumin Urine Color Yellow Urine Appearance Clear Urine pH 7.5 Ur Specific [place] 1.028 Urine Protein Negative Urine Glucose (UA) Negative Urine Ketones Trace H Urine Blood Negative Urine Nitrite Negative Urine Bilirubin Negative Urine Urobilinogen 0.2 Ur Leukocyte Esterase Trace Urine WBC (Auto) 7 Urine RBC (Auto) 1 Urine Casts (Auto) 1 U Epithel Cells (Auto) 4.5 Urine Bacteria (Auto) 22.3 RPR Titer HIV 1&2 Antibody Screen Negative HIV P24 Antigen Negative LABS NOTED. Assessment: 10/07/18 15:40 WITHDRAWAL SYMPTOMS. LEUKOPENIA. Plan: CONTINUE DETOX. INCREASE DAILY PO FLUID / WATER INTAKE.
[2018-10-07] MEDS ORDERED: chlordiazePOXIDE HCL 10 MG CAPSULE PO PRN (17:00)
[2018-10-07] MEDS: chlordiazePOXIDE HCL 10 MG CAPSULE PO SCH ×2 (17:18→22:17)
[2018-10-07] MEDS: THIAMINE HCL 100 MG TABLET (FP) PO SCH (22:17)
[2018-10-07] MEDS: traZODone HCL 50 MG TABLET (FP) PO SCH (22:17)
[2018-10-08] MEDS: chlordiazePOXIDE HCL 10 MG CAPSULE PO SCH ×3 (05:45→17:49)
[2018-10-08] MEDS: IBUPROFEN 600 MG TABLET (FP) PO PRN ×2 (09:32→17:50)
[2018-10-08] MEDS: METHOCARBAMOL 500 MG TABLET PO PRN ×2 (09:33→22:13)
[2018-10-08] MEDS: PRENATAL VITAMINS W/ FOLIC ACID TABLET (FP) PO SCH (10:11)
[2018-10-08] MEDS: RANITIDINE HCL 150 MG TABLET (FP) PO SCH ×2 (10:11→22:12)
[2018-10-08] MEDS: amLODIPine BESYLATE 2.5 MG TABLET (FP) PO SCH (10:12)
[2018-10-08] MEDS: hydrOXYzine PAMOATE 25 MG CAPSULE (FP) PO PRN (10:15)
[2018-10-08] MEDS: ACETAMINOPHEN 325 MG TABLET (FP) PO PRN ×2 (13:17→18:56)
--- NOTE | 2018-10-08 14:57 | PN ---
[facility] CIWA - CIWA Score Nausea/Vomitin-No Nausea/No Vomiting Muscle Tremors: 2 Anxiety: 4-Mod. Anxious/Guarded Agitation: 4-Moderately Restless Paroxysmal Sweats: 1-Minimal Palms Moist Orientation: 0-Oriented Tacttile Disturbances: 1-Very Mild Itch/Numbness Auditory Disturbances: 0-None Visual Disturbances: 0-None Headache: 0-None Present CIWA-Ar Total Score: 12 S Progress Note (SOAP) Subjective: Anxious, Tremors, Interrupted Sleep. Objective: PATIENT A & O X 3, OBSERVED AMBULATING ON UNIT UNASSISTED. IN NO ACUTE DISTRESS. 10/08/18 14:59 Vital Signs Temperature 97.7 F 10/08/18 13:39 Pulse Rate 72 10/08/18 13:39 Respiratory Rate 18 10/08/18 13:39 Blood Pressure 118/67 10/08/18 13:39 O2 Sat by Pulse Oximetry (%) Laboratory Tests 10/05/18 10/05/18 10/05/18 12:30 12:30 12:30 WBC 3.6 L RBC 3.98 L Hgb 13.5 Hct 39.3 MCV 98.9 H MCH 33.8 H MCHC 34.2 RDW 12.9 Plt Count 230 D MPV 8.1 D Sodium 135 L Potassium 4.2 Chloride 102 Carbon Dioxide 28 Anion Gap 5 L BUN 17 Creatinine 0.7 Creat Clearance w eGFR 128.34 Random Glucose 79 Calcium 9.2 Total Bilirubin 0.3 AST 29 ALT 37 Alkaline Phosphatase 67 Total Protein 7.3 Albumin 3.7 Urine Color Urine Appearance Urine pH Ur Specific [place] Urine Protein Urine Glucose (UA) Urine Ketones Urine Blood Urine Nitrite Urine Bilirubin Urine Urobilinogen Ur Leukocyte Esterase Urine WBC (Auto) Urine RBC (Auto) Urine Casts (Auto) U Epithel Cells (Auto) Urine Bacteria (Auto) RPR Titer Nonreactive HIV 1&2 Antibody Screen HIV P24 Antigen 10/05/18 10/05/18 12:30 12:37 WBC RBC Hgb Hct MCV MCH MCHC RDW Plt Count MPV Sodium Potassium Chloride Carbon Dioxide Anion Gap BUN Creatinine Creat Clearance w eGFR Random Glucose Calcium Total Bilirubin AST ALT Alkaline Phosphatase Total Protein Albumin Urine Color Yellow Urine Appearance Clear Urine pH 7.5 Ur Specific [place] 1.028 Urine Protein Negative Urine Glucose (UA) Negative Urine Ketones Trace H Urine Blood Negative Urine Nitrite Negative Urine Bilirubin Negative Urine Urobilinogen 0.2 Ur Leukocyte Esterase Trace Urine WBC (Auto) 7 Urine RBC (Auto) 1 Urine Casts (Auto) 1 U Epithel Cells (Auto) 4.5 Urine Bacteria (Auto) 22.3 RPR Titer HIV 1&2 Antibody Screen Negative HIV P24 Antigen Negative LABS NOTED. Assessment: 10/08/18 15:00 WITHDRAWAL SYMPTOMS. LEUKOPENIA. Plan: CONTINUE DETOX. INCREASE DAILY PO FLUID / WATER INTAKE. PATIENT REQUESTS PSYCHIATRIC RE-EVALUATION FOR REPORTED HISTORY OF SCHIZOPHRENIA AND OF BIPOLAR DISORDER.
[2018-10-08] MEDS: AMMONIUM LACTATE 12% LOTION 225 GM BOTTLE TP PRN (15:50)
[2018-10-08] MEDS: traZODone HCL 50 MG TABLET (FP) PO SCH (22:12)
[2018-10-08] MEDS: THIAMINE HCL 100 MG TABLET (FP) PO SCH (22:12)
[2018-10-08] MEDS: MELATONIN 5 MG TABLETS PO PRN (22:14)
[2018-10-08] MEDS ORDERED: hydrOXYzine PAMOATE 50 MG CAPSULE (FP) PO ONE (23:47)
[2018-10-09] MEDS: AMMONIUM LACTATE 12% LOTION 225 GM BOTTLE TP PRN (02:11)
[2018-10-09] MEDS: hydrOXYzine PAMOATE 25 MG CAPSULE (FP) PO PRN (03:34)
[2018-10-09] MEDS: chlordiazePOXIDE HCL 10 MG CAPSULE PO SCH (06:02)
[2018-10-09] MEDS: ACETAMINOPHEN 325 MG TABLET (FP) PO PRN (06:03)
[2018-10-09] MEDS: IBUPROFEN 600 MG TABLET (FP) PO PRN (07:54)
[2018-10-09 09:18] VITALS: BP 114/79; PULSE 67; TEMP 97.3
--- NOTE | 2018-10-09 09:44 | DS ---
[facility] Detox Discharge Summary Admission Date: 10/05/18 Discharge Date: 10/09/18 - History Present History: Alcohol Dependence Additional Comments: 33 years old male admitted on 10/05/18 for alcohol withdrawal stabilizatin completed detox regimen [facility] - Physical Exam Results Vital Signs: Vital Signs Temperature 97.3 F L 10/09/18 09:17 Pulse Rate 67 10/09/18 09:17 Respiratory Rate 18 10/09/18 09:17 Blood Pressure 114/79 10/09/18 09:17 O2 Sat by Pulse Oximetry (%) Pertinent Admission Physical Exam Findings: alcohol withdrawal sx Laboratory Last Values WBC 3.6 K/mm3 (4.0-10.0) L 10/05/18 12:30 RBC 3.98 M/mm3 (4.00-5.60) L 10/05/18 12:30 Hgb 13.5 GM/dL (11.7-16.9) 10/05/18 12:30 Hct 39.3 % (35.4-49) 10/05/18 12:30 MCV 98.9 fl (80-96) H 10/05/18 12:30 MCH 33.8 pg (25.7-33.7) H 10/05/18 12:30 MCHC 34.2 g/dl (32.0-35.9) 10/05/18 12:30 RDW 12.9 % (11.9-15.9) 10/05/18 12:30 Plt Count 230 K/MM3 (134-434) D 10/05/18 12:30 MPV 8.1 fl (7.5-11.1) D 10/05/18 12:30 Sodium 135 mmol/L (136-145) L 10/05/18 12:30 Potassium 4.2 mmol/L (3.5-5.1) 10/05/18 12:30 Chloride 102 mmol/L (98-107) 10/05/18 12:30 Carbon Dioxide 28 mmol/L (21-32) 10/05/18 12:30 Anion Gap 5 MMOL/L (8-16) L 10/05/18 12:30 BUN 17 mg/dL (7-18) 10/05/18 12:30 Creatinine 0.7 mg/dL (0.55-1.3) 10/05/18 12:30 Creat Clearance w eGFR 128.34 (>60) 10/05/18 12:30 Random Glucose 79 mg/dL (74-106) 10/05/18 12:30 Calcium 9.2 mg/dL (8.5-10.1) 10/05/18 12:30 Total Bilirubin 0.3 mg/dL (0.2-1) 10/05/18 12:30 AST 29 U/L (15-37) 10/05/18 12:30 ALT 37 U/L (13-61) 10/05/18 12:30 Alkaline Phosphatase 67 U/L (45-117) 10/05/18 12:30 Total Protein 7.3 g/dl (6.4-8.2) 10/05/18 12:30 Albumin 3.7 g/dl (3.4-5.0) 10/05/18 12:30 Urine Color Yellow 10/05/18 12:37 Urine Appearance Clear 10/05/18 12:37 Urine pH 7.5 (5.0-8.0) 10/05/18 12:37 Ur Specific [place] 1.028 (1.010-1.035) 10/05/18 12:37 Urine Protein Negative (NEGATIVE) 10/05/18 12:37 Urine Glucose (UA) Negative (NEGATIVE) 10/05/18 12:37 Urine Ketones Trace (NEGATIVE) H 10/05/18 12:37 Urine Blood Negative (NEGATIVE) 10/05/18 12:37 Urine Nitrite Negative (NEGATIVE) 10/05/18 12:37 Urine Bilirubin Negative (NEGATIVE) 10/05/18 12:37 Urine Urobilinogen 0.2 mg/dL (0.2-1.0) 10/05/18 12:37 Ur Leukocyte Esterase Trace (NEGATIVE) 10/05/18 12:37 Urine WBC (Auto) 7 /hpf (0-5) 10/05/18 12:37 Urine RBC (Auto) 1 /hpf (0-4) 10/05/18 12:37 Urine Casts (Auto) 1 /lpf (0-8) 10/05/18 12:37 U Epithel Cells (Auto) 4.5 /HPF (0-5/HPF) 10/05/18 12:37 Urine Bacteria (Auto) 22.3 /hpf (NEGATIVE) 10/05/18 12:37 RPR Titer Nonreactive (NONREACTIVE) 10/05/18 12:30 HIV 1&2 Antibody Screen Negative 10/05/18 12:30 HIV P24 Antigen Negative 10/05/18 12:30 lab noted - Treatment Hospital Course: Detox Protocol Followed, Detoxed Safely, Responded well, Discharged Condition Good, Rehab Referral Accepted Patient has Accepted a Rehab Referral to: [facility] - Medication Discharge Medications: Ambulatory Orders Amlodipine Besylate 2.5 mg PO DAILY 10/05/18 Ibuprofen 800 mg PO TID PRN 10/05/18 Multivitamin [Multiple Vitamins] 1 each PO DAILY 10/05/18 - Diagnosis (1) Alcohol dependence with uncomplicated withdrawal Current Visit: Yes Status: Acute (2) Nicotine dependence Current Visit: Yes Status: Acute Qualifiers: Nicotine product type: cigarettes Substance use status: in withdrawal Qualified Code(s): F17.213 - Nicotine dependence, cigarettes, with withdrawal (3) Essential hypertension Current Visit: Yes Status: Chronic (4) Substance induced mood disorder Current Visit: Yes Status: Suspected - AMA Did Patient Leave Against Medical Advice: No
[2018-10-09] MEDS: RANITIDINE HCL 150 MG TABLET (FP) PO SCH (10:04)
[2018-10-09] MEDS: PRENATAL VITAMINS W/ FOLIC ACID TABLET (FP) PO SCH (10:04)
[2018-10-09] MEDS: amLODIPine BESYLATE 2.5 MG TABLET (FP) PO SCH (10:04)
[2018-10-09] MEDS: METHOCARBAMOL 500 MG TABLET PO PRN (10:05)
== END 2018-10-09 11:00 | disposition other institution (70) | DRG 775 ==
LOC: YASAS 09:21 → Y3N 12:06
PROVIDERS: ADMIT Surgery; ATTEND Surgery
PROC: HZ2ZZZZ Detoxification Services for Substance Abuse Treatment (ICD-10-PCS; principal; 2018-10-05)
DX: F10.230 Alcohol dependence with withdrawal, uncomplicated (principal); F12.20 Cannabis dependence, uncomplicated; F17.213 Nicotine dependence, cigarettes, with withdrawal; F19.24 Other psychoactive substance dependence with psychoactive substance-induced mood disorder; F31.9 Bipolar disorder, unspecified; I10 Essential (primary) hypertension; D72.819 Decreased white blood cell count, unspecified; G47.00 Insomnia, unspecified; K27.9 Peptic ulcer, site unspecified, unspecified as acute or chronic, without hemorrhage or perforation; Z91.14 Patient's other noncompliance with medication regimen
CPT/HCPCS: 36415; 80053; 81003; 85027; 86593; 87389

== ENCOUNTER 2018-10-09 11:11 | Inpatient (IN) | payer OTHER ==
--- NOTE | 2018-10-09 09:46 | HP ---
[facility] Rehab Assess/Revision - Admission History Admitted to Rehab from: [facility] Date of Admission to Rehab: 10/09/18 - Findings Detox History & Physical reviewed: Yes Concur with findings: Yes Comments/Additional Findings: transferred from detox to rehab admission as per protocol Inpatient Rehab Admission - Rehab Decision to Admit Inpatient rehab admission?: Yes - Initial Determination Are CD services needed?: Yes Free of communicable disease: Yes Not in need of hospitalization: Yes - Rehab Admission Criteria Previous failed treatment: Yes Poor recovery environment: Yes Comorbidities: Yes Lacks judgement: No Patient is meeting Inpatient Rehab admission criteria:: Yes
[~2018-10-09 11:11] MED LIST: LOPERAMIDE HCL 2 MG CAPSULE PO PRN; MAG HYDROX/AL HYDROX/SIMETH 30 ML UNIT-DOSE CUP PO PRN; MAGNESIUM CITRATE 300 ML BOTTLE PO PRN; MAGNESIUM HYDROX 2400MG/30ML ORAL SUSPENSION 30 ML CUP PO PRN; MENTHOL/PHENOL 1 EACH UD MM PRN; NICOTINE 14 MG/24 HOURS TOPICAL PATCH TD PRN; NICOTINE POLACRILEX 2 MG GUM BUC PRN; P-EPHED 60MG/TRIPROLIDI 2.5MG TABLET PO PRN; guaiFENesin 200 MG/10 ML 10 ML UNIT-DOSE CUPS PO PRN
[2018-10-09] MEDS: PRENATAL VITAMINS W/ FOLIC ACID TABLET (FP) PO SCH (12:07)
[2018-10-09] MEDS: amLODIPine BESYLATE 2.5 MG TABLET (FP) PO SCH (12:07)
[2018-10-09] MEDS: IBUPROFEN 400 MG TABLET (FP) PO PRN (14:45)
[2018-10-09] MEDS: ACETAMINOPHEN 325 MG TABLET (FP) PO PRN ×2 (16:23→22:31)
[2018-10-09] MEDS: AMMONIUM LACTATE 12% LOTION 225 GM BOTTLE TP SCH (21:24)
[2018-10-09] MEDS: THIAMINE HCL 100 MG TABLET (FP) PO SCH (21:24)
[2018-10-09] MEDS ORDERED: MELATONIN 5 MG TABLETS PO PRN (22:00)
[2018-10-10] MEDS: IBUPROFEN 400 MG TABLET (FP) PO PRN ×3 (08:21→21:37)
[2018-10-10 09:38] LABS: HEMATOCRIT 38.6 % (35.4-49); HEMOGLOBIN 13.4 GM/dL (11.7-16.9); MCH 34.6 pg (25.7-33.7); MCHC 34.7 g/dl (32.0-35.9); MEAN CELL VOLUME 99.7 fl (80-96); MEAN PLT VOLUME 8.2 fl (7.5-11.1); PLATELET COUNT 223 K/MM3 (134-434); RBC 3.88 M/mm3 (4.00-5.60); RDW 12.9 % (11.9-15.9); WHITE BLOOD COUNT 3.8 K/mm3 (4.0-10.0)
[2018-10-10] MEDS: PRENATAL VITAMINS W/ FOLIC ACID TABLET (FP) PO SCH (09:49)
[2018-10-10] MEDS: amLODIPine BESYLATE 2.5 MG TABLET (FP) PO SCH (09:49)
[2018-10-10] MEDS: AMMONIUM LACTATE 12% LOTION 225 GM BOTTLE TP SCH ×2 (09:51→21:39)
[2018-10-10] MEDS ORDERED: PT OWN MED DRAWER 7, Y5N ONE (09:51)
[2018-10-10] MEDS: TOLNAFTATE 1% CREAM 15 GM TUBE TP SCH ×2 (10:53→21:37)
[2018-10-10] MEDS: THIAMINE HCL 100 MG TABLET (FP) PO SCH (21:37)
[2018-10-10] MEDS: MELATONIN 5 MG TABLETS PO PRN (21:38)
[2018-10-11] MEDS ORDERED: PT OWN MED DRAWER 7, Y5N ONE (08:59)
[2018-10-11] MEDS: PRENATAL VITAMINS W/ FOLIC ACID TABLET (FP) PO SCH (10:18)
[2018-10-11] MEDS: amLODIPine BESYLATE 2.5 MG TABLET (FP) PO SCH (10:18)
[2018-10-11] MEDS: AMMONIUM LACTATE 12% LOTION 225 GM BOTTLE TP SCH ×2 (10:18→21:35)
[2018-10-11] MEDS: TOLNAFTATE 1% CREAM 15 GM TUBE TP SCH ×2 (10:18→21:36)
[2018-10-11] MEDS: IBUPROFEN 400 MG TABLET (FP) PO PRN ×2 (10:22→22:55)
[2018-10-11] MEDS: ACETAMINOPHEN 325 MG TABLET (FP) PO PRN (20:07)
[2018-10-11] MEDS: MELATONIN 5 MG TABLETS PO PRN (21:35)
[2018-10-11] MEDS: THIAMINE HCL 100 MG TABLET (FP) PO SCH (21:35)
[2018-10-11] MEDS: TETRAHYDROZOLINE HCL EYE DROPS OU PRN (22:08)
--- NOTE | 2018-10-12 07:40 | CONSULT ---
[facility] Psychiatric Consult - Data Date of interview: 10/12/18 Admission source: 3N Identifying data: Mr Meléndez is a 33 years old single Black male, father of a 13 years old son, unemployed receiving SSI, homeless seeking rehab treatment for alcohol, cocaine and cannabis Substance Abuse History: Reports history of alcohol, cocaine and marijuana use. Refer to addiction counselor's summary for further information Medical History: Significant for hypertension history of peptic ulcer disease and right inguinal hernia. Smokes 5 cigarettes daily Psychiatric History: Patient is a poor historian providing conflictual information. Told sql report writer that he was diagnosed with Bipolar/Schizophrenia while on the 5th grade. Reports couple previous psychiatric hospitalizations at [facility]. Denies current OPD care but claims he used to receive outpatient psychiatric treatment at a clinic on [facility] in the [place]. He told DIANE Spears on 09/26/18 while in detox that he had multiple CPEP admissions at [facility] and most recently two months ago at [facility] ago after making statements of wanting to hurt himself while intoxicated. He could not name any medication he was on but told sql report writer that his sister wants him to go back on these medications. Patient denies suicidal and homicidal ideation. At present he reports denies experiencing psychotic, manic or depressive symptoms, S/H ideations. However, reports sleeping poorly. Physical/Sexual Abuse/Trauma History: Denies Additional Comment: Reports history of previous misdemeanor arrests Mental Status Exam - Mental Status Exam Alert and Oriented to: Time, Place, Person Cognitive Function: Fair Patient Appearance: Well Groomed Mood: Hopeful, Euthymic Patient Behavior: Cooperative Speech Pattern: Clear Voice Loudness: Normal Thought Process: Intact, Goal Oriented Thought Disorder: Not Present Hallucinations: Denies Suicidal Ideation: Denies Homicidal Ideation: Denies Insight/Judgement: Poor Sleep: Poorly Appetite: Good Muscle strength/Tone: Normal Gait/Station: Other (Uses a cane as ambulatory aid) Psychiatric Findings - Problem List ([place]ameron 1, 2,3) (1) Mood disorder Current Visit: Yes Status: Chronic (2) Bipolar disorder Current Visit: Yes Status: Ruled-out (3) Substance-induced sleep disorder Current Visit: Yes Status: Acute (4) Alcohol dependence Current Visit: Yes Status: Acute (5) Cocaine dependence Current Visit: No Status: Acute (6) Cannabis dependence Current Visit: No Status: Acute (7) Nicotine dependence Current Visit: No Status: Chronic Qualifiers: Nicotine product type: cigarettes Substance use status: in withdrawal Qualified Code(s): F17.213 - Nicotine dependence, cigarettes, with withdrawal (8) History of peptic ulcer Current Visit: No Status: Resolved (9) Essential hypertension Current Visit: No Status: Chronic - Initial Treatment Plan Initial Treatment Plan: 1) Start Seroquel 100 mg po HS. 2) Continue inpatient rehabilitation
[2018-10-12] MEDS: TETRAHYDROZOLINE HCL EYE DROPS OU PRN (08:01)
[2018-10-12] MEDS: IBUPROFEN 400 MG TABLET (FP) PO PRN (08:02)
[2018-10-12] MEDS: PRENATAL VITAMINS W/ FOLIC ACID TABLET (FP) PO SCH (10:01)
[2018-10-12] MEDS: TOLNAFTATE 1% CREAM 15 GM TUBE TP SCH ×2 (10:01→21:21)
[2018-10-12] MEDS: AMMONIUM LACTATE 12% LOTION 225 GM BOTTLE TP SCH ×2 (10:01→21:21)
[2018-10-12] MEDS: amLODIPine BESYLATE 2.5 MG TABLET (FP) PO SCH (10:01)
[2018-10-12] MEDS ORDERED: PT OWN MED DRAWER 7, Y5N ONE (10:24)
[2018-10-12] MEDS: ACETAMINOPHEN 325 MG TABLET (FP) PO PRN (11:45)
[2018-10-12] MEDS ORDERED: MAG HYDROX/ALH/SMC/DPHA/LIDO 240 ML MOUTHWASH MM SCH (12:00)
[2018-10-12] MEDS: MAG HYDROX/ALH/SMC/DPHA/LIDO 240 ML MOUTHWASH MM SCH ×3 (12:09→23:45)
[2018-10-12] MEDS: MELATONIN 5 MG TABLETS PO PRN (21:20)
[2018-10-12] MEDS: THIAMINE HCL 100 MG TABLET (FP) PO SCH (21:20)
[2018-10-13] MEDS: IBUPROFEN 400 MG TABLET (FP) PO PRN ×2 (06:09→17:22)
[2018-10-13] MEDS: MAG HYDROX/ALH/SMC/DPHA/LIDO 240 ML MOUTHWASH MM SCH ×3 (06:09→17:24)
[2018-10-13] MEDS: ACETAMINOPHEN 325 MG TABLET (FP) PO PRN ×2 (08:17→13:26)
[2018-10-13] MEDS: TOLNAFTATE 1% CREAM 15 GM TUBE TP SCH ×2 (09:53→21:51)
[2018-10-13] MEDS: PRENATAL VITAMINS W/ FOLIC ACID TABLET (FP) PO SCH (09:53)
[2018-10-13] MEDS: AMMONIUM LACTATE 12% LOTION 225 GM BOTTLE TP SCH ×2 (09:53→21:23)
[2018-10-13] MEDS: amLODIPine BESYLATE 2.5 MG TABLET (FP) PO SCH (09:53)
[2018-10-13] MEDS ORDERED: PT OWN MED DRAWER 7, Y5N ONE (19:18)
[2018-10-13] MEDS: THIAMINE HCL 100 MG TABLET (FP) PO SCH (21:23)
[2018-10-13] MEDS: MELATONIN 5 MG TABLETS PO PRN (21:24)
[2018-10-14] MEDS: MAG HYDROX/ALH/SMC/DPHA/LIDO 240 ML MOUTHWASH MM SCH ×5 (01:52→23:37)
[2018-10-14] MEDS: PRENATAL VITAMINS W/ FOLIC ACID TABLET (FP) PO SCH (09:54)
[2018-10-14] MEDS: amLODIPine BESYLATE 2.5 MG TABLET (FP) PO SCH (09:54)
[2018-10-14] MEDS: TOLNAFTATE 1% CREAM 15 GM TUBE TP SCH ×2 (09:55→21:21)
[2018-10-14] MEDS: AMMONIUM LACTATE 12% LOTION 225 GM BOTTLE TP SCH ×2 (09:55→21:23)
[2018-10-14] MEDS: IBUPROFEN 400 MG TABLET (FP) PO PRN (09:57)
[2018-10-14] MEDS: THIAMINE HCL 100 MG TABLET (FP) PO SCH (21:21)
[2018-10-15] MEDS: MAG HYDROX/ALH/SMC/DPHA/LIDO 240 ML MOUTHWASH MM SCH ×4 (06:19→23:20)
[2018-10-15] MEDS: amLODIPine BESYLATE 2.5 MG TABLET (FP) PO SCH (09:52)
[2018-10-15] MEDS: TETRAHYDROZOLINE HCL EYE DROPS OU PRN ×2 (09:52→17:02)
[2018-10-15] MEDS: PRENATAL VITAMINS W/ FOLIC ACID TABLET (FP) PO SCH (09:52)
[2018-10-15] MEDS: TOLNAFTATE 1% CREAM 15 GM TUBE TP SCH ×2 (09:52→22:02)
[2018-10-15] MEDS: AMMONIUM LACTATE 12% LOTION 225 GM BOTTLE TP SCH ×2 (09:52→22:01)
[2018-10-15] MEDS: IBUPROFEN 400 MG TABLET (FP) PO PRN ×2 (10:44→19:57)
[2018-10-15] MEDS: ACETAMINOPHEN 325 MG TABLET (FP) PO PRN (12:51)
[2018-10-15] MEDS ORDERED: PT OWN MED DRAWER 7, Y5N ONE (22:03)
[2018-10-15] MEDS: MELATONIN 5 MG TABLETS PO PRN (22:04)
[2018-10-15] MEDS: THIAMINE HCL 100 MG TABLET (FP) PO SCH (22:04)
[2018-10-16] MEDS: MAG HYDROX/ALH/SMC/DPHA/LIDO 240 ML MOUTHWASH MM SCH ×4 (06:05→23:58)
[2018-10-16] MEDS: AMMONIUM LACTATE 12% LOTION 225 GM BOTTLE TP SCH ×2 (09:36→21:19)
[2018-10-16] MEDS: PRENATAL VITAMINS W/ FOLIC ACID TABLET (FP) PO SCH (09:37)
[2018-10-16] MEDS: amLODIPine BESYLATE 2.5 MG TABLET (FP) PO SCH (09:37)
[2018-10-16] MEDS: TOLNAFTATE 1% CREAM 15 GM TUBE TP SCH ×2 (09:38→21:18)
[2018-10-16] MEDS ORDERED: PT OWN MED DRAWER 7, Y5N ONE (09:39)
[2018-10-16] MEDS: MELATONIN 5 MG TABLETS PO PRN (21:19)
[2018-10-16] MEDS: THIAMINE HCL 100 MG TABLET (FP) PO SCH (21:19)
[2018-10-17] MEDS: MAG HYDROX/ALH/SMC/DPHA/LIDO 240 ML MOUTHWASH MM SCH ×4 (06:07→23:58)
[2018-10-17] MEDS: PRENATAL VITAMINS W/ FOLIC ACID TABLET (FP) PO SCH (10:04)
[2018-10-17] MEDS: TOLNAFTATE 1% CREAM 15 GM TUBE TP SCH ×2 (10:04→21:41)
[2018-10-17] MEDS: amLODIPine BESYLATE 2.5 MG TABLET (FP) PO SCH (10:04)
[2018-10-17] MEDS: IBUPROFEN 400 MG TABLET (FP) PO PRN (10:04)
[2018-10-17] MEDS: TETRAHYDROZOLINE HCL EYE DROPS OU PRN (10:04)
[2018-10-17] MEDS: AMMONIUM LACTATE 12% LOTION 225 GM BOTTLE TP SCH ×2 (10:17→21:40)
[2018-10-17] MEDS: MELATONIN 5 MG TABLETS PO PRN (21:39)
[2018-10-17] MEDS: THIAMINE HCL 100 MG TABLET (FP) PO SCH (21:39)
[2018-10-18] MEDS: MAG HYDROX/ALH/SMC/DPHA/LIDO 240 ML MOUTHWASH MM SCH ×4 (05:54→23:44)
[2018-10-18] MEDS: ACETAMINOPHEN 325 MG TABLET (FP) PO PRN (08:34)
[2018-10-18] MEDS: amLODIPine BESYLATE 2.5 MG TABLET (FP) PO SCH (09:51)
[2018-10-18] MEDS: PRENATAL VITAMINS W/ FOLIC ACID TABLET (FP) PO SCH (09:51)
[2018-10-18] MEDS: AMMONIUM LACTATE 12% LOTION 225 GM BOTTLE TP SCH ×2 (09:52→21:23)
[2018-10-18] MEDS: TOLNAFTATE 1% CREAM 15 GM TUBE TP SCH ×2 (09:52→21:22)
[2018-10-18] MEDS: TETRAHYDROZOLINE HCL EYE DROPS OU PRN ×2 (09:53→18:21)
--- NOTE | 2018-10-18 13:39 | PN ---
BHS Progress Note (SOAP) Subjective: Client to be discharged tomorrow. Objective: No neurological deficits noted, CN2-12 intact. Heart rate regular, lungs clear, abdomen soft, non-tender, non-distended. Medically stable for discharge. 10/18/18 13:37 CBC, BMP 10/09/18 08:00 Vital Signs (72 hours) 10/16/18 10/16/18 10/16/18 00:30 03:30 07:20 Temperature 97.7 F Pulse Rate 67 Respiratory 18 18 18 Rate Blood Pressure 132/85 10/16/18 10/17/18 10/17/18 10:00 00:30 03:30 Temperature Pulse Rate 70 Respiratory 18 18 Rate Blood Pressure 118/80 10/17/18 10/17/18 10/18/18 06:00 10:00 00:30 Temperature 98.5 F Pulse Rate 64 58 L Respiratory 18 18 Rate Blood Pressure 121/71 130/86 10/18/18 10/18/18 10/18/18 03:30 06:47 09:30 Temperature 97.6 F Pulse Rate 61 65 Respiratory 18 18 18 Rate Blood Pressure 143/82 120/73 Assessment: 10/18/18 13:38 Medically stable for discharge Discharge Diagnoses: ETOH dependence, chronic Cannabis dependence, Chronic PCP abuse HTN Plan: Client will go to [facility] for aftercare. Primary care by Dr. Burciaga in [place]. Client has prescriptions waiting for him at his pharmacy.
[2018-10-18] MEDS: IBUPROFEN 400 MG TABLET (FP) PO PRN (15:50)
[2018-10-18] MEDS: THIAMINE HCL 100 MG TABLET (FP) PO SCH (21:22)
[2018-10-18] MEDS: MELATONIN 5 MG TABLETS PO PRN (21:23)
[2018-10-19] MEDS: IBUPROFEN 400 MG TABLET (FP) PO PRN (03:06)
[2018-10-19] MEDS: MAG HYDROX/ALH/SMC/DPHA/LIDO 240 ML MOUTHWASH MM SCH (06:16)
[2018-10-19 07:14] VITALS: BP 123/87; PULSE 71; TEMP 98.4
[2018-10-19] MEDS: amLODIPine BESYLATE 2.5 MG TABLET (FP) PO SCH (09:01)
[2018-10-19] MEDS: PRENATAL VITAMINS W/ FOLIC ACID TABLET (FP) PO SCH (09:01)
[2018-10-19] MEDS: TOLNAFTATE 1% CREAM 15 GM TUBE TP SCH (09:02)
[2018-10-19] MEDS: AMMONIUM LACTATE 12% LOTION 225 GM BOTTLE TP SCH (09:02)
[2018-10-20 06:06] LABS: HBSAG SCREEN Negative (Negative); HEP B CORE AB, TOT Negative (Negative)
== END 2018-10-19 09:10 | disposition home or self-care (01) | DRG 772 ==
LOC: YASAS 11:11 → Y3W 11:13
PROVIDERS: ADMIT Neuromusculoskeletal Medicine & OMM; ATTEND Neuromusculoskeletal Medicine & OMM
PROC: HZ42ZZZ Group Counseling for Substance Abuse Treatment, Cognitive-Behavioral (ICD-10-PCS; principal; 2018-10-09)
DX: F10.20 Alcohol dependence, uncomplicated (principal); F14.20 Cocaine dependence, uncomplicated; F12.20 Cannabis dependence, uncomplicated; F16.10 Hallucinogen abuse, uncomplicated; F17.213 Nicotine dependence, cigarettes, with withdrawal; F19.282 Other psychoactive substance dependence with psychoactive substance-induced sleep disorder; F39 Unspecified mood [affective] disorder; F31.9 Bipolar disorder, unspecified; I10 Essential (primary) hypertension; Z87.11 Personal history of peptic ulcer disease
CPT/HCPCS: 36415; 85027; 86704; 86706; 86708; 86803; 87340

== ENCOUNTER 2018-12-09 09:30 | Inpatient (IN) | payer OTHER ==
[2018-12-09 11:58] VITALS: BMI 23.7
--- NOTE | 2018-12-09 12:43 | HP ---
CIWA Score Nausea/Vomitin-No Nausea/No Vomiting Muscle Tremors: 1-None Visible, but [place] Anxiety: 3 Agitation: 3 Paroxysmal Sweats: 2 Orientation: 2-Disoriented Date<2 days Tacttile Disturbances: 0-None Auditory Disturbances: 0-None Visual Disturbances: 0-None Headache: 3-Moderate CIWA-Ar Total Score: 14 - Admission Criteria OASAS Guidelines: Admission for Medically Managed Detox: Requires at least one of the followin. CIWA greater than 12 2. Seizures within the past 24 hours 3. Delirium tremens within the past 24 hours 4. Hallucinations within the past 24 hours 5. Acute intervention needed for co occurring medical disorder 6. Acute intervention needed for co occurring psychiatric disorder 7. Severe withdrawal that cannot be handled at a lower level of care (continued vomiting, continued diarrhea, abnormal vital signs) requiring intravenous medication and/or fluids 8. Admission ROS [facility] Chief Complaint: Patient presents for ETOH withdrawal symptoms. Allergies/Adverse Reactions: Allergies Allergy/AdvReac Type Severity Reaction Status Date / Time No Known Allergies Allergy Verified 12/09/18 11:49 History of Present Illness: Patient is known to [facility] due to previous admissions for ETOH withdrawal symptoms and Marijuana dependence. Patient started drinking at age 14, drinks 2- 3 pints daily, with last drink last night. Patient states he went to [facility] last night due to dizziness and was given a medication to help his symptoms. Urine tox + BZO. Patient also smokes 2 blunts of marijuana daily, with last use 2 days ago. Patient denies hx of seizures, delirium tremors and black outs. PMH includes HTN, GERD, tobacco dependence and Bipolar disorder. Patient denies SI/HI and suicide attempts. Patient refused psych consult at this time as he wants to see his own Psychiatrist. Exam Limitations: No Limitations - Ebola screening Have you traveled outside of the country in the last 21 days: No Have you had contact with anyone from an Ebola affected area: No Have you been sick,other than usual withdrawal symptoms: No Do you have a fever: No - Review of Systems Constitutional: Night Sweats, Changes in sleep EENT: reports: No Symptoms Reported Respiratory: reports: No Symptoms reported Cardiac: reports: No Symptoms Reported GI: reports: Poor Fluid Intake : reports: No Symptoms Reported Musculoskeletal: reports: No Symptoms Reported Integumentary: reports: Sweating Neuro: reports: Headache, Tremors Endocrine: reports: Excessive Sweating Hematology: reports: No Symptoms Reported Psychiatric: reports: Orientated x3, Anxious Patient History - Patient Medical History Hx Anemia: No Hx Asthma: No Hx Chronic Obstructive Pulmonary Disease (COPD): No Hx Cancer: No Hx Cardiac Disorders: No Hx Hypertension: Yes (pt on Norvasc) Hx Hypercholesterolemia: No Hx Pacemaker: No HX Cerebrovascular Accident: No Hx Seizures: No Hx Dementia: No Hx Diabetes: No Hx Gastrointestinal Disorders: Yes (peptic ulcer on med) Hx Liver Disease: No Hx Genitourinary Disorders: No Hx Sexually Transmitted Disorders: No Hx Renal Disease (ESRD): No Hx Thyroid Disease: No Hx Human Immunodeficiency Virus (HIV): No (last 12/06 negative) Hx Hepatitis C: No Hx Depression: Yes Hx Suicide Attempt: No Hx Bipolar Disorder: Yes (non compliance) Hx Schizophrenia: No - Patient Surgical History Past Surgical History: Yes Hx Neurologic Surgery: No Hx Cataract Extraction: No Hx Cardiac Surgery: No Hx Lung Surgery: No Hx Breast Surgery: No Hx Breast Biopsy: No Hx Abdominal Surgery: No Hx Appendectomy: No Hx Cholecystectomy: No Hx Genitourinary Surgery: No Hx Orthopedic Surgery: No Other Surgical History: R inguinal hernia repair.in 1995 recurrent Anesthesia Reaction: No - PPD History Previous Implant?: Yes Documented Results: Negative w/proof Date: 02/20/18 Results: 0 mm PPD to be Administered?: No - Smoking Cessation Smoking history: Current every day smoker Have you smoked in the past 12 months: Yes Aproximately how many cigarettes per day: 5 Hx Chewing Tobacco Use: No Initiated information on smoking cessation: Yes 'Breaking Loose' booklet given: 12/09/18 - Substance & Tx. History Hx Alcohol Use: Yes Hx Substance Use: Yes Substance Use Type: Alcohol, Marijuana Hx Substance Use Treatment: Yes - Substances abused Alcohol Substance route: Oral Frequency: Daily Amount used: rum 5 pint,vodka 5 pints Age of first use: 13 Date of last use: 12/08/18 Marijuana/Hashish Substance route: Smoking Frequency: Daily Amount used: $50.00 Age of first use: 13 Date of last use: 12/07/18 Family Disease History - Family Disease History Family Disease History: Heart Disease: Father (alcohol,), Other: Father , Mother (alcohol,) Admission Physical Exam [facility] - Vital Signs Vital Signs: Vital Signs - 24 hr 12/09/18 11:56 Temperature 97.0 F L Pulse Rate 71 Respiratory 20 Rate Blood Pressure 129/87 - Physical General Appearance: Yes: Appropriately Dressed, Sweating, Anxious HEENTM: Yes: EOMI, Hearing grossly Normal, Normocephalic, Normal Voice, FREDIS, Pharynx Normal Respiratory: Yes: Chest Non-Tender, Lungs Clear, Normal Breath Sounds, No Respiratory Distress, No Accessory Muscle Use Neck: Yes: No masses,lesions,Nodules, Supple, Trachea in good position Breast: Yes: Breast Exam Deferred Cardiology: Yes: Regular Rhythm, Regular Rate, S1, S2 Abdominal: Yes: Normal Bowel Sounds, Non Tender, Soft Genitourinary: Yes: Within Normal Limits Back: Yes: Normal Inspection Musculoskeletal: Yes: full range of Motion, Gait Steady, Pelvis Stable Extremities: Yes: Normal Inspection, Normal Range of Motion, Non-Tender, Tremors (mild tremors felt) Neurological: Yes: coffin maker II-XII NML intact, Fully Oriented, Alert, Motor Strength 5/5, Normal Response, Other (anxious) Integumentary: Yes: Normal Color, Warm, Moist Lymphatic: Yes: Within Normal Limits - Diagnostic (1) Alcohol dependence with uncomplicated withdrawal Current Visit: Yes Status: Acute (2) Cannabis dependence Current Visit: Yes Status: Chronic (3) Essential hypertension Current Visit: Yes Status: Chronic (4) Nicotine dependence Current Visit: Yes Status: Chronic Qualifiers: Nicotine product type: cigarettes Substance use status: in withdrawal Qualified Code(s): F17.213 - Nicotine dependence, cigarettes, with withdrawal (5) History of peptic ulcer Current Visit: Yes Status: Resolved Cleared for Admission [facility] - Detox or Rehab [facility] Level of Care: Medically Managed Detox Regimen/Protocol: Librium Breathalyzer - Breathalyzer Breathalyzer: 0 Urine Drug Screen - Test Device Lot number: [id number] Expiration date: 08/18/20 - Control Is test valid?: Yes - Results Drug screen NEGATIVE: No Urine drug screen results: BZO-Benzodiazepines Inpatient Rehab Admission - Rehab Decision to Admit Inpatient rehab admission?: No
[2018-12-09] MEDS ORDERED: MAGNESIUM HYDROX 2400MG/30ML ORAL SUSPENSION 30 ML CUP PO PRN (12:48)
[2018-12-09] MEDS ORDERED: MAGNESIUM CITRATE 300 ML BOTTLE PO PRN (12:48)
[2018-12-09] MEDS ORDERED: ONDANSETRON *ODT* 4 MG TABLET SL PRN (12:48)
[2018-12-09] MEDS ORDERED: BISMUTH SUBSALICYLATE 262 MG/15 ML BTL PO PRN (12:48)
[2018-12-09] MEDS ORDERED: ACETAMINOPHEN 325 MG TABLET (FP) PO PRN ×2 (12:48)
[2018-12-09] MEDS ORDERED: MAG HYDROX/AL HYDROX/SIMETH 30 ML UNIT-DOSE CUP PO PRN (12:48)
[2018-12-09] MEDS ORDERED: hydrOXYzine PAMOATE 25 MG CAPSULE (FP) PO PRN (12:48)
[2018-12-09] MEDS ORDERED: NICOTINE POLACRILEX 2 MG GUM BUC PRN (12:48)
[2018-12-09] MEDS ORDERED: MENTHOL/PHENOL 1 EACH UD MM PRN (12:48)
[2018-12-09] MEDS ORDERED: chlordiazePOXIDE HCL 25 MG CAPSULE PO PRN (12:51)
[2018-12-09 16:05] LABS: HEMOGLOBIN 13.6 GM/dL (11.7-16.9); MCH 33.8 pg (25.7-33.7); MCHC 34.1 g/dl (32.0-35.9); MEAN CELL VOLUME 99.2 fl (80-96); MEAN PLT VOLUME 8.4 fl (7.5-11.1); PLATELET COUNT 226 K/MM3 (134-434); RBC 4.03 M/mm3 (4.00-5.60); WHITE BLOOD COUNT 3.2 K/mm3 (4.0-10.0)
[2018-12-09 16:11] LABS: BILIRUBIN,TOTAL 0.6 mg/dL (0.2-1); BLOOD UREA NITROGEN 12.5 mg/dL (7-18); CALCIUM 8.9 mg/dL (8.5-10.1); CREATININE 0.9 mg/dL (0.55-1.3); POTASSIUM 4.3 mmol/L (3.5-5.1); TOT PROT 7.4 g/dl (6.4-8.2)
[2018-12-09] MEDS: chlordiazePOXIDE HCL 25 MG CAPSULE PO SCH ×2 (17:48→22:12)
[2018-12-09 21:17] LABS: EPI CELLS 3.5 /HPF (0-5/HPF); HYALINE CASTS 3 /lpf (0-8); URINE APPEARANCE CLOUDY; URINE BACTERIA 0.8 /hpf (NEGATIVE); URINE BILIRUBIN NEGATIVE (NEGATIVE); URINE COLOR YELLOW; URINE GLUCOSE (UA) NEGATIVE (NEGATIVE); URINE KETONE NEGATIVE (NEGATIVE); URINE LEUK ESTERASE TRACE (NEGATIVE); URINE NITRITE NEGATIVE (NEGATIVE); URINE PROTEIN TRACE (NEGATIVE); URINE RBC 1 /hpf (0-4); URINE WBC 7 /hpf (0-5)
[2018-12-09] MEDS: THIAMINE HCL 100 MG TABLET (FP) PO SCH (22:12)
[2018-12-09] MEDS: MELATONIN 5 MG TABLETS PO PRN (22:13)
[2018-12-10] MEDS: chlordiazePOXIDE HCL 25 MG CAPSULE PO SCH ×4 (05:55→22:19)
[2018-12-10] MEDS: IBUPROFEN 400 MG TABLET (FP) PO PRN ×3 (06:52→21:21)
[2018-12-10] MEDS: PANTOPRAZOLE 40 MG TABLET (FP) PO SCH (09:58)
[2018-12-10] MEDS: PRENATAL VITAMINS W/ FOLIC ACID TABLET (FP) PO SCH (09:58)
[2018-12-10] MEDS: amLODIPine BESYLATE 2.5 MG TABLET (FP) PO SCH (09:58)
--- NOTE | 2018-12-10 12:48 | PN ---
[facility] CIWA - CIWA Score Nausea/Vomitin-No Nausea/No Vomiting Muscle Tremors: None Anxiety: 3 Agitation: 3 Paroxysmal Sweats: No Perspiration Orientation: 0-Oriented Tacttile Disturbances: 2-Mild Itch/Numbness/Burn Auditory Disturbances: 0-None Visual Disturbances: 0-None Headache: 1-Very Mild CIWA-Ar Total Score: 9 BHS Progress Note (SOAP) Subjective: PATIENT C/O MILD HEADACHE, ANXIETY/RESTLESSNESS AND NUMBNESS/TINGLING SENSATION TO FEET. Objective: 12/10/18 12:46 Laboratory Tests 12/09/18 12/09/18 12/09/18 13:00 13:00 13:00 WBC 3.2 L RBC 4.03 Hgb 13.6 Hct 40.0 MCV 99.2 H MCH 33.8 H MCHC 34.1 RDW 14.0 Plt Count 226 MPV 8.4 Sodium 138 Potassium 4.3 Chloride 107 Carbon Dioxide 25 Anion Gap 7 L BUN 12.5 Creatinine 0.9 Est GFR (CKD-EPI)AfAm 127.80 Est GFR (CKD-EPI)NonAf 110.27 Random Glucose 95 Calcium 8.9 Total Bilirubin 0.6 AST 61 H ALT 64 H Alkaline Phosphatase 81 Total Protein 7.4 Albumin 4.0 Urine Color Urine Appearance Urine pH Ur Specific [place] Urine Protein Urine Glucose (UA) Urine Ketones Urine Blood Urine Nitrite Urine Bilirubin Urine Urobilinogen Ur Leukocyte Esterase Urine WBC (Auto) Urine RBC (Auto) Urine Casts (Auto) U Epithel Cells (Auto) Urine Bacteria (Auto) RPR Titer Nonreactive 12/09/18 13:26 WBC RBC Hgb Hct MCV MCH MCHC RDW Plt Count MPV Sodium Potassium Chloride Carbon Dioxide Anion Gap BUN Creatinine Est GFR (CKD-EPI)AfAm Est GFR (CKD-EPI)NonAf Random Glucose Calcium Total Bilirubin AST ALT Alkaline Phosphatase Total Protein Albumin Urine Color Yellow Urine Appearance Cloudy Urine pH 6.0 Ur Specific [place] 1.023 Urine Protein Trace Urine Glucose (UA) Negative Urine Ketones Negative Urine Blood Negative Urine Nitrite Negative Urine Bilirubin Negative Urine Urobilinogen 1.0 Ur Leukocyte Esterase Trace Urine WBC (Auto) 7 Urine RBC (Auto) 1 Urine Casts (Auto) 3 U Epithel Cells (Auto) 3.5 Urine Bacteria (Auto) 0.8 RPR Titer Vital Signs Temperature 97.5 F L 12/10/18 09:55 Pulse Rate 74 12/10/18 09:55 Respiratory Rate 18 12/10/18 09:55 Blood Pressure 125/75 12/10/18 09:55 O2 Sat by Pulse Oximetry (%) PE: ALERT AND ORIENTED X 3 SKIN WARM AND DRY +PERRLA EOMS INTACT BL EXT FULL ROM, NO TREMORS AMB AD XANDER/PACING IN HALLWAY MILDLY ANXIOUS Assessment: 12/10/18 12:47 WITHDRAWAL SX Plan: CONTINUE DETOX ENCOURAGE ORAL FLUIDS MONITOR CLINICALLY
[2018-12-10] MEDS: THIAMINE HCL 100 MG TABLET (FP) PO SCH (22:19)
[2018-12-10] MEDS: MELATONIN 5 MG TABLETS PO PRN (22:19)
[2018-12-11] MEDS: chlordiazePOXIDE HCL 25 MG CAPSULE PO SCH ×2 (05:24→10:08)
[2018-12-11] MEDS: IBUPROFEN 400 MG TABLET (FP) PO PRN ×2 (09:13→14:28)
[2018-12-11] MEDS: PANTOPRAZOLE 40 MG TABLET (FP) PO SCH (09:40)
[2018-12-11] MEDS: amLODIPine BESYLATE 2.5 MG TABLET (FP) PO SCH (09:40)
[2018-12-11] MEDS: PRENATAL VITAMINS W/ FOLIC ACID TABLET (FP) PO SCH (09:40)
--- NOTE | 2018-12-11 16:13 | PN ---
S CIWA - CIWA Score Nausea/Vomitin-Mild Nausea/No Vomiting Muscle Tremors: 2 Anxiety: 2 Agitation: 2 Paroxysmal Sweats: 2 Orientation: 0-Oriented Tacttile Disturbances: 0-None Auditory Disturbances: 0-None Visual Disturbances: 0-None Headache: 0-None Present CIWA-Ar Total Score: 9 BHS Progress Note (SOAP) Subjective: Feels ok, symptoms controlled by medication. Patient refused to elaborate. Objective: 12/11/18 16:09 Last Vital Signs Temp Pulse Resp BP Pulse Ox 97.9 F 77 17 131/80 12/11/18 14:19 12/11/18 14:19 12/11/18 14:19 12/11/18 14:19 Laboratory Tests 12/09/18 12/09/18 12/09/18 13:00 13:00 13:00 WBC 3.2 L RBC 4.03 Hgb 13.6 Hct 40.0 MCV 99.2 H MCH 33.8 H MCHC 34.1 RDW 14.0 Plt Count 226 MPV 8.4 Sodium 138 Potassium 4.3 Chloride 107 Carbon Dioxide 25 Anion Gap 7 L BUN 12.5 Creatinine 0.9 Est GFR (CKD-EPI)AfAm 127.80 Est GFR (CKD-EPI)NonAf 110.27 Random Glucose 95 Calcium 8.9 Total Bilirubin 0.6 AST 61 H ALT 64 H Alkaline Phosphatase 81 Total Protein 7.4 Albumin 4.0 Urine Color Urine Appearance Urine pH Ur Specific [place] Urine Protein Urine Glucose (UA) Urine Ketones Urine Blood Urine Nitrite Urine Bilirubin Urine Urobilinogen Ur Leukocyte Esterase Urine WBC (Auto) Urine RBC (Auto) Urine Casts (Auto) U Epithel Cells (Auto) Urine Bacteria (Auto) RPR Titer Nonreactive 12/09/18 13:26 WBC RBC Hgb Hct MCV MCH MCHC RDW Plt Count MPV Sodium Potassium Chloride Carbon Dioxide Anion Gap BUN Creatinine Est GFR (CKD-EPI)AfAm Est GFR (CKD-EPI)NonAf Random Glucose Calcium Total Bilirubin AST ALT Alkaline Phosphatase Total Protein Albumin Urine Color Yellow Urine Appearance Cloudy Urine pH 6.0 Ur Specific [place] 1.023 Urine Protein Trace Urine Glucose (UA) Negative Urine Ketones Negative Urine Blood Negative Urine Nitrite Negative Urine Bilirubin Negative Urine Urobilinogen 1.0 Ur Leukocyte Esterase Trace Urine WBC (Auto) 7 Urine RBC (Auto) 1 Urine Casts (Auto) 3 U Epithel Cells (Auto) 3.5 Urine Bacteria (Auto) 0.8 RPR Titer Labs reviewed Assessment: 12/11/18 16:12 Withdrawal symptoms Plan: Continue detox Encouraged PO water intake
[2018-12-11] MEDS ORDERED: chlordiazePOXIDE HCL 10 MG CAPSULE PO PRN (17:00)
[2018-12-11] MEDS: chlordiazePOXIDE HCL 10 MG CAPSULE PO SCH ×2 (17:06→22:04)
[2018-12-11] MEDS: THIAMINE HCL 100 MG TABLET (FP) PO SCH (22:04)
[2018-12-11] MEDS: MELATONIN 5 MG TABLETS PO PRN (22:04)
[2018-12-12] MEDS: chlordiazePOXIDE HCL 10 MG CAPSULE PO SCH (05:18)
[2018-12-12 06:55] VITALS: TEMP 95.4
[2018-12-12 09:19] VITALS: BP 129/70; PULSE 72
--- NOTE | 2018-12-12 10:16 | DS ---
[facility] Detox Discharge Summary Admission Date: 12/09/18 Discharge Date: 12/12/18 - History Present History: Alcohol Dependence, Cannabis Dependence, Cocaine Dependence, Pcp Dependence - Physical Exam Results Vital Signs: Vital Signs Temperature 95.4 F L 12/12/18 06:00 Pulse Rate 72 12/12/18 09:18 Respiratory Rate 17 12/12/18 09:18 Blood Pressure 129/70 12/12/18 09:18 O2 Sat by Pulse Oximetry (%) - Treatment Hospital Course: Detox Protocol Followed, Detoxed Safely, Responded well, Discharged Condition Good, Rehab Referral Accepted - Medication Discharge Medications: Ambulatory Orders Amlodipine Besylate 2.5 mg PO DAILY 10/05/18 Ibuprofen 800 mg PO TID PRN 10/05/18 Multivitamin [Multiple Vitamins] 1 each PO DAILY 10/05/18 Omeprazole 40 mg PO DAILY 12/09/18 - Diagnosis (1) Alcohol dependence with uncomplicated withdrawal Current Visit: Yes Status: Chronic (2) Cannabis dependence Current Visit: Yes Status: Chronic (3) Essential hypertension Current Visit: Yes Status: Chronic (4) Nicotine dependence Current Visit: Yes Status: Chronic Qualifiers: Nicotine product type: cigarettes Substance use status: uncomplicated Qualified Code(s): F17.210 - Nicotine dependence, cigarettes, uncomplicated (5) History of peptic ulcer Current Visit: No Status: Resolved (6) Bipolar disorder Current Visit: No Status: Acute (7) Cocaine dependence Current Visit: Yes Status: Chronic Qualifiers: Substance use status: uncomplicated Qualified Code(s): F14.20 - Cocaine dependence, uncomplicated (8) Insomnia Current Visit: No Status: Acute (9) PCP (phencyclidine) abuse Current Visit: Yes Status: Acute (10) Substance-induced sleep disorder Current Visit: No Status: Acute (11) Mood disorder Current Visit: No Status: Chronic (12) Substance induced mood disorder Current Visit: No Status: Suspected (13) Bipolar disorder Current Visit: No Status: Ruled-out - AMA Did Patient Leave Against Medical Advice: No (going home; pt delined referral)
[2018-12-12] MEDS ORDERED: chlordiazePOXIDE HCL 10 MG CAPSULE PO SCH (17:00)
== END 2018-12-12 08:44 | disposition home or self-care (01) | DRG 774 ==
LOC: YASAS 09:30 → Y6N 13:04
PROVIDERS: ADMIT Surgery; ATTEND Surgery
PROC: HZ2ZZZZ Detoxification Services for Substance Abuse Treatment (ICD-10-PCS; principal; 2018-12-09)
DX: F10.230 Alcohol dependence with withdrawal, uncomplicated (principal); F14.20 Cocaine dependence, uncomplicated; F16.20 Hallucinogen dependence, uncomplicated; F12.20 Cannabis dependence, uncomplicated; F31.9 Bipolar disorder, unspecified; F19.24 Other psychoactive substance dependence with psychoactive substance-induced mood disorder; F19.282 Other psychoactive substance dependence with psychoactive substance-induced sleep disorder; I10 Essential (primary) hypertension; Z87.11 Personal history of peptic ulcer disease
CPT/HCPCS: 36415; 80053; 81003; 85027; 86593

== ENCOUNTER 2018-12-18 08:43 | Inpatient (IN) | payer OTHER ==
[2018-12-18 09:46] VITALS: BMI 25.4
--- NOTE | 2018-12-18 11:43 | HP ---
CIWA Score Nausea/Vomitin (vomiting x 3) Muscle Tremors: 3 Anxiety: 3 Agitation: 4-Moderately Restless Paroxysmal Sweats: 2 Orientation: 0-Oriented Tacttile Disturbances: 0-None Auditory Disturbances: 0-None Visual Disturbances: 0-None Headache: 3-Moderate CIWA-Ar Total Score: 18 - Admission Criteria OASAS Guidelines: Admission for Medically Managed Detox: Requires at least one of the followin. CIWA greater than 12 2. Seizures within the past 24 hours 3. Delirium tremens within the past 24 hours 4. Hallucinations within the past 24 hours 5. Acute intervention needed for co occurring medical disorder 6. Acute intervention needed for co occurring psychiatric disorder 7. Severe withdrawal that cannot be handled at a lower level of care (continued vomiting, continued diarrhea, abnormal vital signs) requiring intravenous medication and/or fluids 8. Admission ROS [facility] Chief Complaint: Alcohol withdrawal symptoms Allergies/Adverse Reactions: Allergies Allergy/AdvReac Type Severity Reaction Status Date / Time No Known Allergies Allergy Verified 12/18/18 09:39 History of Present Illness: 33 years old male with a long history of alcohol dependence (since age 14) is seeking admission to detox. Patient was admitted at [facility] from 12/09/2018 - 12/12. He was referred from [facility] emergency room and was brought in by Mr. Kern. Patient has history of hypertension, GERD and depression. He denies suicide attempt and suicidal ideation at this time. Exam Limitations: No Limitations - Ebola screening Have you traveled outside of the country in the last 21 days: No (N) Have you had contact with anyone from an Ebola affected area: No Do you have a fever: No - Review of Systems Constitutional: Chills, Malaise, Changes in sleep, Weakness EENT: reports: No Symptoms Reported Respiratory: reports: No Symptoms reported Cardiac: reports: No Symptoms Reported GI: reports: Nausea, Poor Appetite, Poor Fluid Intake, Vomiting, Abdominal cramping : reports: No Symptoms Reported Musculoskeletal: reports: Back Pain, Joint Pain, Muscle Weakness Integumentary: reports: Dryness, Flushing Neuro: reports: Tremors Endocrine: reports: No Symptoms Reported Hematology: reports: No Symptoms Reported Psychiatric: reports: Orientated x3, Depressed Other Systems: Reviewed and Negative Patient History - Patient Medical History Hx Anemia: No Hx Asthma: No Hx Chronic Obstructive Pulmonary Disease (COPD): No Hx Cancer: No Hx Cardiac Disorders: No Hx Hypertension: Yes (Not on medication) Hx Hypercholesterolemia: No Hx Pacemaker: No HX Cerebrovascular Accident: No Hx Seizures: No Hx Dementia: No Hx Diabetes: No Hx Gastrointestinal Disorders: Yes (GERD- Not on medication) Hx Liver Disease: No Hx Genitourinary Disorders: No Hx Sexually Transmitted Disorders: No Hx Renal Disease (ESRD): No Hx Thyroid Disease: No Hx Human Immunodeficiency Virus (HIV): No (Negative 11/2017 ) Hx Hepatitis C: No Hx Depression: Yes (Not on medication) Hx Suicide Attempt: No Hx Bipolar Disorder: Yes (non compliance) Hx Schizophrenia: No - Patient Surgical History Past Surgical History: Yes Hx Neurologic Surgery: No Hx Cataract Extraction: No Hx Cardiac Surgery: No Hx Lung Surgery: No Hx Breast Surgery: No Hx Breast Biopsy: No Hx Abdominal Surgery: No Hx Appendectomy: No Hx Cholecystectomy: No Hx Genitourinary Surgery: No Hx Section: No Hx Orthopedic Surgery: No Other Surgical History: R inguinal hernia repair.in 1995 recurrent Anesthesia Reaction: No - PPD History Previous Implant?: Yes Documented Results: Negative w/proof Date: 02/20/18 Results: 0 mm PPD to be Administered?: No - Reproductive History Patient is a Female of Child Bearing Age (11 -55 yrs old): No (male) - Smoking Cessation Smoking history: Current every day smoker Have you smoked in the past 12 months: Yes Aproximately how many cigarettes per day: 5 Hx Chewing Tobacco Use: No Initiated information on smoking cessation: Yes 'Breaking Loose' booklet given: 12/18/18 - Substance & Tx. History Hx Alcohol Use: Yes Hx Substance Use: Yes Substance Use Type: Alcohol, Cocaine, Marijuana Hx Substance Use Treatment: Yes ([facility]) - Substances abused Alcohol Substance route: Oral Frequency: Daily Amount used: rum 5 pint,vodka 5 pints Age of first use: 13 Date of last use: 12/17/18 Marijuana/Hashish Substance route: Smoking Frequency: Daily Amount used: $80.00 Age of first use: 13 Date of last use: 12/17/18 Cocaine Substance route: Inhalation Frequency: 1-2 times per week Amount used: $100 Age of first use: 14 Date of last use: 12/11/18 Family Disease History - Family Disease History Family Disease History: Heart Disease: Father (alcohol,), Other: Father , Mother (alcohol,) Admission Physical Exam [facility] - Vital Signs Vital Signs: Vital Signs - 24 hr 12/18/18 09:39 Temperature 97.0 F L Pulse Rate 66 Respiratory 18 Rate Blood Pressure 127/84 - Physical General Appearance: Yes: Moderate Distress, Tremorous HEENTM: Yes: Within Normal Limits Respiratory: Yes: Lungs Clear, Normal Breath Sounds, No Respiratory Distress Neck: Yes: Supple Breast: Yes: Breast Exam Deferred Cardiology: Yes: Regular Rhythm, Regular Rate Abdominal: Yes: Normal Bowel Sounds, Soft Genitourinary: Yes: Within Normal Limits Back: Yes: Normal Inspection Musculoskeletal: Yes: Back pain, Muscle Pain Extremities: Yes: Tremors Neurological: Yes: Within Normal Limits Integumentary: Yes: Warm Lymphatic: Yes: Within Normal Limits - Diagnostic (1) Depression Current Visit: Yes Status: Chronic Qualifiers: Depression Type: unspecified Qualified Code(s): F32.9 - Major depressive disorder, single episode, unspecified (2) Alcohol dependence with uncomplicated withdrawal Current Visit: Yes Status: Chronic (3) Cannabis dependence Current Visit: Yes Status: Chronic (4) Essential hypertension Current Visit: Yes Status: Chronic (5) Nicotine dependence Current Visit: Yes Status: Chronic Qualifiers: Nicotine product type: cigarettes Substance use status: uncomplicated Qualified Code(s): F17.210 - Nicotine dependence, cigarettes, uncomplicated (6) History of peptic ulcer Current Visit: Yes Status: Chronic Cleared for Admission [facility] - Detox or Rehab [facility] Level of Care: Medically Managed Detox Regimen/Protocol: Librium Breathalyzer - Breathalyzer Breathalyzer: 0 Urine Drug Screen - Test Device Lot number: [id number] Expiration date: 08/18/20 - Control Is test valid?: Yes - Results Drug screen NEGATIVE: No Urine drug screen results: THC-Marijuana, BZO-Benzodiazepines Inpatient Rehab Admission - Rehab Decision to Admit Inpatient rehab admission?: No
[2018-12-18] MEDS ORDERED: MENTHOL/PHENOL 1 EACH UD MM PRN (11:56)
[2018-12-18] MEDS ORDERED: NICOTINE POLACRILEX 2 MG GUM BUC PRN (11:56)
[2018-12-18] MEDS ORDERED: hydrOXYzine PAMOATE 25 MG CAPSULE (FP) PO PRN (11:56)
[2018-12-18] MEDS ORDERED: MAG HYDROX/AL HYDROX/SIMETH 30 ML UNIT-DOSE CUP PO PRN (11:56)
[2018-12-18] MEDS ORDERED: MAGNESIUM HYDROX 2400MG/30ML ORAL SUSPENSION 30 ML CUP PO PRN (11:56)
[2018-12-18] MEDS ORDERED: ACETAMINOPHEN 325 MG TABLET (FP) PO PRN (11:56)
[2018-12-18] MEDS ORDERED: BISMUTH SUBSALICYLATE 524 MG/30 ML UD PO PRN (11:56)
[2018-12-18] MEDS ORDERED: MAGNESIUM CITRATE 300 ML BOTTLE PO PRN (11:56)
[2018-12-18] MEDS ORDERED: chlordiazePOXIDE HCL 25 MG CAPSULE PO PRN (11:59)
[2018-12-18] MEDS: chlordiazePOXIDE HCL 25 MG CAPSULE PO SCH ×3 (13:37→22:34)
[2018-12-18] MEDS: IBUPROFEN 400 MG TABLET (FP) PO PRN (16:47)
[2018-12-18] MEDS: THIAMINE HCL 100 MG TABLET (FP) PO SCH (22:34)
[2018-12-18] MEDS: MELATONIN 5 MG TABLETS PO PRN (22:34)
[2018-12-19] MEDS: ACETAMINOPHEN 325 MG TABLET (FP) PO PRN ×3 (00:37→13:59)
[2018-12-19] MEDS: METHOCARBAMOL 500 MG TABLET PO PRN ×2 (00:41→18:57)
[2018-12-19] MEDS: chlordiazePOXIDE HCL 25 MG CAPSULE PO SCH ×5 (06:13→22:08)
[2018-12-19] MEDS: IBUPROFEN 400 MG TABLET (FP) PO PRN ×3 (06:15→22:08)
[2018-12-19] MEDS: NICOTINE 14 MG/24 HOURS TOPICAL PATCH TD SCH (10:19)
[2018-12-19] MEDS: PRENATAL VITAMINS W/ FOLIC ACID TABLET (FP) PO SCH (10:19)
[2018-12-19 10:29] LABS: HEMATOCRIT 37.9 % (35.4-49); HEMOGLOBIN 12.8 GM/dL (11.7-16.9); MCH 33.6 pg (25.7-33.7); MCHC 33.8 g/dl (32.0-35.9); MEAN CELL VOLUME 99.6 fl (80-96); MEAN PLT VOLUME 8.1 fl (7.5-11.1); PLATELET COUNT 215 K/MM3 (134-434); WHITE BLOOD COUNT 2.6 K/mm3 (4.0-10.0)
[2018-12-19 10:32] LABS: ALBUMIN 3.7 g/dl (3.4-5.0); BILIRUBIN,TOTAL 0.7 mg/dL (0.2-1); BLOOD UREA NITROGEN 15.6 mg/dL (7-18); CALCIUM 8.6 mg/dL (8.5-10.1); CREATININE 0.8 mg/dL (0.55-1.3); POTASSIUM 4.1 mmol/L (3.5-5.1); TOT PROT 6.9 g/dl (6.4-8.2)
[2018-12-19] MEDS: amLODIPine BESYLATE 2.5 MG TABLET (FP) PO SCH (10:40)
--- NOTE | 2018-12-19 15:53 | PN ---
[facility] CIWA - CIWA Score Nausea/Vomitin-No Nausea/No Vomiting Muscle Tremors: 3 Anxiety: 1-Mildly Anxious Agitation: 0-Normal Activity Paroxysmal Sweats: 3 Orientation: 0-Oriented Tacttile Disturbances: 3-Moderate Itch/Numb/Burn Auditory Disturbances: 2-Mild Harshness/Frighten Visual Disturbances: 0-None Headache: 0-None Present CIWA-Ar Total Score: 12 S Progress Note (SOAP) Subjective: Tremors, Chills, Sweating, Diarrhea. Objective: PATIENT A & O X 3, OBSERVED AMBULATING ON UNIT UNASSISTED. IN NO ACUTE DISTRESS. 12/19/18 15:54 Vital Signs Temperature 97.9 F 12/19/18 13:28 Pulse Rate 65 12/19/18 13:28 Respiratory Rate 18 12/19/18 13:28 Blood Pressure 124/82 12/19/18 13:28 O2 Sat by Pulse Oximetry (%) Laboratory Tests 12/19/18 12/19/18 12/19/18 07:00 07:00 07:00 WBC 2.6 L RBC 3.80 L Hgb 12.8 Hct 37.9 MCV 99.6 H MCH 33.6 MCHC 33.8 RDW 14.0 Plt Count 215 MPV 8.1 Sodium 136 Potassium 4.1 Chloride 103 Carbon Dioxide 27 Anion Gap 6 L BUN 15.6 Creatinine 0.8 Est GFR (CKD-EPI)AfAm 134.14 Est GFR (CKD-EPI)NonAf 115.74 Random Glucose 81 Calcium 8.6 Total Bilirubin 0.7 AST 44 H ALT 53 Alkaline Phosphatase 65 Total Protein 6.9 Albumin 3.7 RPR Titer Nonreactive LABS NOTED. PATIENT HAS HAD LOW WBC LEVELS ON PREVIOUS ADMISSIONS. 12/19/18 15:55 Assessment: 12/19/18 15:55 WITHDRAWAL SYMPTOMS. LEUKOPENIA. Plan: CONTINUE DETOX. INCREASE DAILY PO WATER INTAKE.
--- NOTE | 2018-12-19 16:41 | CONSULT ---
[facility] Psychiatric Consult - Data Date of interview: 12/19/18 Admission source: [facility] Identifying data: Readmission to [facility] for this 33 y/o AA male, self- referred for detoxification treatment (alcohol, cannabis). Interviewed at [address] [place] [address]. Patient is single, a father of one, domiciled, unemployed and supported on SSI benefits since age [age] (diagnosed with dyslexia). Substance Abuse History: Discussed with the patient. Patient indicates that he used " some " PCP prior this visit and " woke up " at [facility] last night. Mr Meléndez connfirms the contents of current [facility] report relative to his substance abuse profile : Smoking history: Current every day smoker. Have you smoked in the past 12 months: Yes. Aproximately how many cigarettes per day: 5. Hx Chewing Tobacco Use: No. Initiated information on smoking cessation: Yes. 'Breaking Loose' booklet given: 12/18/18. - Substance & Tx. History. Hx Alcohol Use: Yes. Hx Substance Use: Yes. Substance Use Type: Alcohol, Cocaine , Marijuana. Hx Substance Use Treatment: Yes ([facility] - Substances abused. Alcohol. Substance route: Oral. Frequency: Daily. Amount used: rum 5 pint, vodka 5 pints. Age of first use: 13. Date of last use: 12/17/18. Marijuana /Hashish. Substance route: Smoking. Frequency: Daily. Amount used: $80.00. Age of first use: 13. Date of last use: 12/17/18. Cocaine. Substance route : Inhalation. Frequency: 1-2 times per week. Amount used: $100. Age of first use: 14. Date of last use: 12/11/18 Medical History: Remarkable for chronic lumbar pain, history of head trauma from fall from stairs in the context of ETOH intoxication (neurosurgery), migraine headaches, peptic ulcer disease, hypertension and history of right inguinal herniorraphy (1995). Psychiatric History: Patient denies history of psychiatric hospitalizations but he endorses prior contact with psychiatrists during childhood (dyslexia + behavioral issues). First exposure to psychotropic medications were prescribed to the patient during childhood + adolescence (no recall of names). Mr Meléndez is known to the [facility] OPD clinic (3 years ago). Diagnosed, at the time, with Bipolar Disorder. Chronic history of non-adherence to psychotropic medications and clinic appointments. Patient denies history of suicide attempts. Physical/Sexual Abuse/Trauma History: Patient denies. Additional Comment: Urine drug screen results: THC-Marijuana, BZO- Benzodiazepines. Noted. Mental Status Exam - Mental Status Exam Alert and Oriented to: Time, Place, Person Cognitive Function: Good Patient Appearance: Well Groomed Mood: Nervous, Withdrawn, Anxious Affect: Appropriate, Normal Range Patient Behavior: Fatigued, Appropriate, Cooperative Speech Pattern: Clear Voice Loudness: Normal Thought Process: Goal Oriented Thought Disorder: Not Present Hallucinations: Denies Suicidal Ideation: Denies Homicidal Ideation: Denies Insight/Judgement: Poor Sleep: Poorly, Difficulty falling asleep (wants seroquel) Appetite: Good Muscle strength/Tone: Normal Gait/Station: Normal Psychiatric Findings - Problem List ([place] 1, 2,3) (1) Alcohol dependence with uncomplicated withdrawal Current Visit: Yes Status: Acute (2) Cocaine dependence Current Visit: Yes Status: Chronic (3) Cannabis dependence Current Visit: Yes Status: Chronic (4) PCP (phencyclidine) abuse Current Visit: Yes Status: Chronic Comment: As per self-report. Toxicology is negative for PCP at time of admission. (5) Nicotine dependence Current Visit: Yes Status: Chronic Qualifiers: Nicotine product type: cigarettes Substance use status: uncomplicated Qualified Code(s): F17.210 - Nicotine dependence, cigarettes, uncomplicated (6) Substance induced mood disorder Current Visit: Yes Status: Chronic (7) Insomnia Current Visit: Yes Status: Chronic (8) Non-compliance Current Visit: Yes Status: Chronic - Initial Treatment Plan Initial Treatment Plan: Psychoeducation. Records revisited. Relapse prevention ( MAT) discussed with patient. Seroquel 100 mg po hs. Ordered. Side effects/ benefits discussed. Patient gave verbal consent to MD. Ribera.
[2018-12-19] MEDS: QUEtiapine FUMARATE 100 MG TABLET (FP) PO SCH (22:07)
[2018-12-19] MEDS: THIAMINE HCL 100 MG TABLET (FP) PO SCH (22:08)
[2018-12-19] MEDS: MELATONIN 5 MG TABLETS PO PRN (22:09)
[2018-12-20] MEDS: chlordiazePOXIDE HCL 10 MG CAPSULE PO SCH ×4 (05:58→22:15)
[2018-12-20] MEDS: IBUPROFEN 400 MG TABLET (FP) PO PRN ×3 (07:24→22:16)
[2018-12-20] MEDS: NICOTINE 14 MG/24 HOURS TOPICAL PATCH TD SCH (10:17)
[2018-12-20] MEDS: amLODIPine BESYLATE 2.5 MG TABLET (FP) PO SCH (10:50)
[2018-12-20] MEDS: PRENATAL VITAMINS W/ FOLIC ACID TABLET (FP) PO SCH (10:50)
[2018-12-20] MEDS: METHOCARBAMOL 500 MG TABLET PO PRN ×2 (10:51→22:16)
[2018-12-20] MEDS ORDERED: chlordiazePOXIDE HCL 10 MG CAPSULE PO PRN (11:00)
--- NOTE | 2018-12-20 13:27 | PN ---
[facility] CIWA - CIWA Score Nausea/Vomitin-Mild Nausea/No Vomiting Muscle Tremors: None Anxiety: 2 Agitation: 1-Slight > Activity Paroxysmal Sweats: No Perspiration Orientation: 0-Oriented Tacttile Disturbances: 0-None Auditory Disturbances: 0-None Visual Disturbances: 0-None Headache: 0-None Present CIWA-Ar Total Score: 4 [facility] Progress Note (SOAP) Subjective: pt would like to leave early tomorrow morning, would like sleeping med, ulcer med, BP med and headache med O Vital Signs - 24 hr 12/19/18 12/19/18 12/19/18 13:28 17:06 21:13 Temperature 97.9 F 97.5 F L 96.4 F L Pulse Rate 65 73 61 Respiratory 18 18 18 Rate Blood Pressure 124/82 134/83 121/81 12/20/18 12/20/18 12/20/18 00:30 03:30 06:06 Temperature 96.7 F L Pulse Rate 70 Respiratory 18 18 18 Rate Blood Pressure 138/87 12/20/18 12/20/18 09:19 13:19 Temperature 96.6 F L 98.9 F Pulse Rate 71 71 Respiratory 18 18 Rate Blood Pressure 144/94 119/85 Laboratory Tests 12/19/18 12/19/18 12/19/18 07:00 07:00 07:00 WBC 2.6 L RBC 3.80 L Hgb 12.8 Hct 37.9 MCV 99.6 H MCH 33.6 MCHC 33.8 RDW 14.0 Plt Count 215 MPV 8.1 Sodium 136 Potassium 4.1 Chloride 103 Carbon Dioxide 27 Anion Gap 6 L BUN 15.6 Creatinine 0.8 Est GFR (CKD-EPI)AfAm 134.14 Est GFR (CKD-EPI)NonAf 115.74 Random Glucose 81 Calcium 8.6 Total Bilirubin 0.7 AST 44 H ALT 53 Alkaline Phosphatase 65 Total Protein 6.9 Albumin 3.7 RPR Titer Nonreactive a/p: continue alcohol detox- d/c order and meds done f/u PCP for ulcer eval and BP check
[2018-12-20] MEDS: ACETAMINOPHEN 325 MG TABLET (FP) PO PRN (17:37)
[2018-12-20] MEDS: THIAMINE HCL 100 MG TABLET (FP) PO SCH (22:15)
[2018-12-20] MEDS: QUEtiapine FUMARATE 100 MG TABLET (FP) PO SCH (22:15)
[2018-12-21] MEDS: ACETAMINOPHEN 325 MG TABLET (FP) PO PRN (02:44)
[2018-12-21] MEDS: IBUPROFEN 400 MG TABLET (FP) PO PRN (05:19)
[2018-12-21 05:44] VITALS: BP 98/60; PULSE 61; TEMP 96.7
[2018-12-21] MEDS ORDERED: chlordiazePOXIDE HCL 10 MG CAPSULE PO SCH (06:00)
--- NOTE | 2018-12-21 19:37 | DS ---
[facility] Detox Discharge Summary Admission Date: 12/18/18 Discharge Date: 12/21/18 - History Present History: Alcohol Dependence, Cannabis Dependence, Cocaine Dependence, Pcp Dependence Additional Comments: PATIENT LEFT DETOX UNIT EARLY IN AM PRIOR TO TIME OF ARRIVAL OF ANALYSIS INTERNSHIP ONTO DETOX UNIT. PRE-DISCHARGE MEDICAL ASSESSMENT UNABLE TO BE DONE. PER ROOFING MACHINE OPERATOR Evan BARRAGAN, PATIENT REFERRED TO [facility] ([place], [place]) FOR AFTERCARE. Pertinent Past History: HTN, Depression, Bipolar Disorder, G.E.R.D., Nicotine Dependence, History Of Peptic Ulcer, Insomnia, Leukopenia. - Physical Exam Results Vital Signs: Vital Signs Temperature 96.7 F L 12/21/18 05:44 Pulse Rate 61 12/21/18 05:44 Respiratory Rate 18 12/21/18 05:44 Blood Pressure 98/60 12/21/18 05:44 O2 Sat by Pulse Oximetry (%) Pertinent Admission Physical Exam Findings: WITHDRAWAL SYMPTOMS. Laboratory Tests 12/19/18 12/19/18 12/19/18 07:00 07:00 07:00 WBC 2.6 L RBC 3.80 L Hgb 12.8 Hct 37.9 MCV 99.6 H MCH 33.6 MCHC 33.8 RDW 14.0 Plt Count 215 MPV 8.1 Sodium 136 Potassium 4.1 Chloride 103 Carbon Dioxide 27 Anion Gap 6 L BUN 15.6 Creatinine 0.8 Est GFR (CKD-EPI)AfAm 134.14 Est GFR (CKD-EPI)NonAf 115.74 Random Glucose 81 Calcium 8.6 Total Bilirubin 0.7 AST 44 H ALT 53 Alkaline Phosphatase 65 Total Protein 6.9 Albumin 3.7 RPR Titer Nonreactive LABS NOTED. - Treatment Hospital Course: Detox Protocol Followed, Detoxed Safely, Responded well, Discharged Condition Good, Rehab Referral Accepted Patient has Accepted a Rehab Referral to: [facility] ([place], [place]). - Medication Discharge Medications: Ambulatory Orders Amlodipine Besylate 2.5 mg PO DAILY #30 tablet 12/20/18 Multivitamin [Multiple Vitamins] 1 each PO DAILY #30 tablet 12/20/18 Omeprazole 40 mg PO DAILY #30 capsule. 12/20/18 Quetiapine Fumarate [Seroquel] 100 mg PO HS #30 tablet 12/20/18 - Diagnosis (1) Alcohol dependence with uncomplicated withdrawal Status: Acute (2) Leukopenia Status: Acute Qualifiers: Leukopenia type: unspecified Qualified Code(s): D72.819 - Decreased white blood cell count, unspecified (3) Cannabis dependence Status: Chronic (4) Depression Status: Chronic Qualifiers: Depression Type: unspecified Qualified Code(s): F32.9 - Major depressive disorder, single episode, unspecified (5) Non-compliance Status: Chronic (6) PCP (phencyclidine) abuse Status: Chronic (7) Essential hypertension Status: Chronic (8) Nicotine dependence Status: Chronic Qualifiers: Nicotine product type: cigarettes Substance use status: uncomplicated Qualified Code(s): F17.210 - Nicotine dependence, cigarettes, uncomplicated (9) Substance induced mood disorder Status: Chronic (10) Insomnia Status: Chronic Qualifiers: Insomnia type: unspecified Qualified Code(s): G47.00 - Insomnia, unspecified (11) History of peptic ulcer Status: Chronic (12) Cocaine dependence Status: Chronic Qualifiers: Substance use status: uncomplicated Qualified Code(s): F14.20 - Cocaine dependence, uncomplicated - AMA Did Patient Leave Against Medical Advice: No
== END 2018-12-21 07:20 | disposition home or self-care (01) | DRG 774 ==
LOC: YASAS 08:43 → Y3N 12:18
PROVIDERS: ADMIT Surgery; ATTEND Surgery
PROC: HZ2ZZZZ Detoxification Services for Substance Abuse Treatment (ICD-10-PCS; principal; 2018-12-18)
DX: F10.230 Alcohol dependence with withdrawal, uncomplicated (principal); F14.20 Cocaine dependence, uncomplicated; F12.20 Cannabis dependence, uncomplicated; F16.10 Hallucinogen abuse, uncomplicated; F17.210 Nicotine dependence, cigarettes, uncomplicated; F19.24 Other psychoactive substance dependence with psychoactive substance-induced mood disorder; F39 Unspecified mood [affective] disorder; F32.9 Major depressive disorder, single episode, unspecified; G47.00 Insomnia, unspecified; I10 Essential (primary) hypertension; D72.819 Decreased white blood cell count, unspecified; Z87.11 Personal history of peptic ulcer disease; Z91.19 Patient's noncompliance with other medical treatment and regimen
CPT/HCPCS: 36415; 80053; 85027; 86593

== ENCOUNTER 2019-01-27 09:32 | Inpatient (IN) | payer OTHER | END 2019-01-31 10:35 | disposition home or self-care (01) | LOC: Y3N 01-29 10:51 → YASAS 09:32 → Y3N 13:00 ==

== ENCOUNTER 2019-05-04 09:23 | Inpatient (IN) | payer OTHER ==
[2019-05-04 09:43] VITALS: BMI 26.4
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
[2019-05-04] MEDS ORDERED: MELATONIN 5 MG TABLETS PO PRN (11:38)
[2019-05-04] MEDS ORDERED: MAGNESIUM CITRATE 300 ML BOTTLE PO PRN (11:38)
[2019-05-04] MEDS ORDERED: MAG HYDROX/AL HYDROX/SIMETH 30 ML UNIT-DOSE CUP PO PRN (11:38)
[2019-05-04] MEDS ORDERED: METHOCARBAMOL 500 MG TABLET PO PRN (11:38)
[2019-05-04] MEDS ORDERED: IBUPROFEN 400 MG TABLET (FP) PO PRN (11:38)
[2019-05-04] MEDS ORDERED: ACETAMINOPHEN 325 MG TABLET (FP) PO PRN ×2 (11:38)
[2019-05-04] MEDS ORDERED: hydrOXYzine PAMOATE 25 MG CAPSULE (FP) PO PRN (11:38)
[2019-05-04] MEDS ORDERED: MENTHOL/PHENOL 1 EACH UD MM PRN (11:38)
[2019-05-04] MEDS ORDERED: MAGNESIUM HYDROX 2400MG/30ML ORAL SUSPENSION 30 ML CUP PO PRN (11:38)
[2019-05-04] MEDS ORDERED: BISMUTH SUBSALICYLATE 262 MG/15 ML BTL PO PRN (11:38)
[2019-05-04] MEDS ORDERED: chlordiazePOXIDE HCL 25 MG CAPSULE PO PRN (11:39)
[2019-05-04] MEDS: chlordiazePOXIDE HCL 25 MG CAPSULE PO SCH ×3 (13:00→22:19)
[2019-05-04] MEDS: THIAMINE HCL 100 MG TABLET (FP) PO SCH (22:19)
[2019-05-05] MEDS: chlordiazePOXIDE HCL 25 MG CAPSULE PO SCH ×4 (05:43→22:27)
[2019-05-05] MEDS ORDERED: IBUPROFEN 400 MG TABLET (FP) PO PRN (09:32)
--- NOTE | 2019-05-05 09:34 | PN ---
[facility] Progress Note (SOAP) Subjective: back pain leg pain headache Objective: 05/05/19 09:33 Vital Signs Temperature 98.6 F 05/05/19 09:31 Pulse Rate 63 05/05/19 09:31 Respiratory Rate 16 05/05/19 09:31 Blood Pressure 129/80 05/05/19 09:31 O2 Sat by Pulse Oximetry (%) aaox3 ambulating no acute distress Assessment: 05/05/19 09:33 unsteady gait d/t leg trauma; cane ordered for stability mild withdrawals noted Plan: cane motrin 800mg tid prn lidocaine patch daily roboxin prn
[2019-05-05] MEDS ORDERED: levETIRAcetam 500 MG TABLET (FP) PO ONE (11:00)
[2019-05-05] MEDS: PRENATAL VITAMINS W/ FOLIC ACID TABLET (FP) PO SCH (11:00)
[2019-05-05] MEDS: amLODIPine BESYLATE 2.5 MG TABLET (FP) PO SCH (11:01)
[2019-05-05] MEDS: PANTOPRAZOLE 40 MG TABLET (FP) PO SCH (11:02)
[2019-05-05] MEDS: LIDOCAINE 5% TOPICAL PATCH TP SCH (11:12)
--- NOTE | 2019-05-05 11:36 | PN ---
S CIWA - CIWA Score Nausea/Vomitin-No Nausea/No Vomiting Muscle Tremors: 2 Anxiety: 2 Agitation: 2 Paroxysmal Sweats: 2 Orientation: 0-Oriented Tacttile Disturbances: 0-None Auditory Disturbances: 0-None Visual Disturbances: 0-None Headache: 0-None Present CIWA-Ar Total Score: 8 BHS Progress Note (SOAP) Subjective: sweats agitation irritable Objective: 05/05/19 11:35 Vital Signs Temperature 98.6 F 05/05/19 09:31 Pulse Rate 63 05/05/19 09:31 Respiratory Rate 16 05/05/19 09:31 Blood Pressure 129/80 05/05/19 09:31 O2 Sat by Pulse Oximetry (%) Laboratory Tests 05/05/19 07:00 HIV 1&2 Antibody Screen Negative HIV P24 Antigen Negative aaox3 ambulating no acute distress Assessment: 05/05/19 11:36 mild withdrawals Plan: continue detox increase fluids
[2019-05-05] MEDS ORDERED: LIDOCAINE PATCH REMOVAL MC SCH (22:00)
[2019-05-05] MEDS ORDERED: MELATONIN 5 MG TABLETS PO SCH (22:00)
[2019-05-05] MEDS: THIAMINE HCL 100 MG TABLET (FP) PO SCH (22:27)
[2019-05-05] MEDS: levETIRAcetam 500 MG TABLET (FP) PO SCH (22:32)
[2019-05-06] MEDS: chlordiazePOXIDE HCL 25 MG CAPSULE PO SCH ×2 (05:39→10:06)
[2019-05-06] MEDS: amLODIPine BESYLATE 2.5 MG TABLET (FP) PO SCH (10:05)
[2019-05-06] MEDS: PRENATAL VITAMINS W/ FOLIC ACID TABLET (FP) PO SCH (10:05)
[2019-05-06] MEDS: levETIRAcetam 500 MG TABLET (FP) PO SCH (10:05)
[2019-05-06] MEDS: LIDOCAINE 5% TOPICAL PATCH TP SCH (10:06)
[2019-05-06] MEDS: PANTOPRAZOLE 40 MG TABLET (FP) PO SCH (10:06)
[2019-05-06 10:45] VITALS: BP 139/50; PULSE 78; TEMP 96.8
--- NOTE | 2019-05-06 16:15 | DS ---
[facility] Detox Discharge Summary Admission Date: 05/04/19 Discharge Date: 05/06/19 - History Present History: Alcohol Dependence, Cannabis Dependence Additional Comments: DESPITE EFFORTS BY LIFE SCIENCES DIRECTOR AND BY NURSING STAFF TO ADDRESS PATIENT'S MEDICAL NEEDS / CONCERNS, PATIENT DOES NOT WISH TO REMAIN TO COMPLETE DETOX REGIMEN. RISKS OF LEAVING DETOX UNIT AGAINST MEDICAL ADVICE AND PRIOR TO COMPLETION OF DETOX REGIMEN EXPLAINED TO PATIENT. PATIENT ADVISED TO GO IMMEDIATELY TO NEAREST ER SHOULD ANY INTOLERABLE WITHDRAWAL / DETOX SYMPTOMS DEVELOP AT ANY TIME. PATIENT VERBALIZED UNDERSTANDING OF ALL INFORMATION / RECOMMENDATIONS PRESENTED TO HIM PRIOR TO DEPARTURE FROM DETOX UNIT. PATIENT DECLINED OFFER OF MEDICATION PRESCRIPTION FOR HOME MEDICATION AT TIME OF DISCHARGE FROM DETOX, NOTING THAT HE CURRENTLY HAS ADEQUATE SUPPLIES OF ALL PRESCRIBED HOME MEDICATIONS AT HOME. PATIENT LEFT DETOX UNIT IN STABLE MEDICAL CONDITION. Pertinent Past History: nicotine Dependence, Depression, Bipolar Disorder, HTN, Peptic Ulcer Disease, History of Chronic Back Pain, History Of migraine Headaches. - Physical Exam Results Vital Signs: Vital Signs Temperature 96.8 F L 05/06/19 10:00 Pulse Rate 78 05/06/19 10:00 Respiratory Rate 18 05/06/19 10:00 Blood Pressure 139/50 L 05/06/19 10:00 O2 Sat by Pulse Oximetry (%) Pertinent Admission Physical Exam Findings: WITHDRAWAL SYMPTOMS. Laboratory Tests 05/05/19 07:00 HIV 1&2 Antibody Screen Negative HIV P24 Antigen Negative LAB RESULTS NOTED. - Medication Discharge Medications: Ambulatory Orders Multivitamin [Multiple Vitamins] 1 each PO DAILY #30 tablet 12/20/18 Omeprazole 40 mg PO DAILY #30 capsule. 12/20/18 Acetaminophen [Mapap] 650 mg PO TID PRN 01/27/19 Ibuprofen 800 mg PO TID 01/27/19 Quetiapine Fumarate [Seroquel] 100 mg PO HS #30 tablet 01/29/19 Amlodipine Besylate 2.5 mg PO DAILY #30 tablet 01/30/19 levETIRAcetam [Keppra -] 500 mg PO BID #60 tablet 01/30/19 - Diagnosis (1) Alcohol dependence with uncomplicated withdrawal Status: Acute (2) Cannabis dependence Status: Chronic (3) Nicotine dependence Status: Chronic Qualifiers: Nicotine product type: cigarettes Substance use status: uncomplicated Qualified Code(s): F17.210 - Nicotine dependence, cigarettes, uncomplicated - AMA Did Patient Leave Against Medical Advice: Yes (PATIENT DID NOT WISH TO REAMIN TO COMPLETE DETOX REGIMEN.)
[2019-05-07] MEDS ORDERED: chlordiazePOXIDE HCL 10 MG CAPSULE PO PRN
[2019-05-07] MEDS ORDERED: chlordiazePOXIDE HCL 10 MG CAPSULE PO SCH (05:00)
[2019-05-08] MEDS ORDERED: chlordiazePOXIDE HCL 10 MG CAPSULE PO SCH (05:00)
[2019-05-09] MEDS ORDERED: chlordiazePOXIDE HCL 10 MG CAPSULE PO ONE (05:00)
== END 2019-05-06 11:15 | disposition left against medical advice (07) | DRG 770 ==
LOC: YASAS 09:23 → Y6N 11:55
PROVIDERS: ADMIT Allergy & Immunology; ATTEND Allergy & Immunology
PROC: HZ2ZZZZ Detoxification Services for Substance Abuse Treatment (ICD-10-PCS; principal; 2019-05-04)
DX: F10.230 Alcohol dependence with withdrawal, uncomplicated (principal); F12.20 Cannabis dependence, uncomplicated; F17.210 Nicotine dependence, cigarettes, uncomplicated; Z91.14 Patient's other noncompliance with medication regimen
CPT/HCPCS: 36415; 87389

== ENCOUNTER 2019-05-26 08:44 | Inpatient (IN) | payer OTHER ==
[2019-05-26 09:12] VITALS: BMI 26.9
--- NOTE | 2019-05-26 10:38 | HP ---
CIWA Score Nausea/Vomitin-Mild Nausea/No Vomiting Muscle Tremors: None Anxiety: 0-No Anxiety, at Ease Agitation: 0-Normal Activity Paroxysmal Sweats: 1-Minimal Palms Moist Orientation: 0-Oriented Tacttile Disturbances: 0-None Auditory Disturbances: 0-None Visual Disturbances: 0-None Headache: 0-None Present CIWA-Ar Total Score: 2 - Admission Criteria OASAS Guidelines: Admission for Medically Managed Detox: Requires at least one of the followin. CIWA greater than 12 2. Seizures within the past 24 hours 3. Delirium tremens within the past 24 hours 4. Hallucinations within the past 24 hours 5. Acute intervention needed for co occurring medical disorder 6. Acute intervention needed for co occurring psychiatric disorder 7. Severe withdrawal that cannot be handled at a lower level of care (continued vomiting, continued diarrhea, abnormal vital signs) requiring intravenous medication and/or fluids 8. Admitting History and Physical - Smoking History Smoking history: Current every day smoker Have you smoked in the past 12 months: Yes Aproximately how many cigarettes per day: 5 - Alcohol/Substance Use Hx Alcohol Use: Yes Admission [facility] Allergies/Adverse Reactions: Allergies Allergy/AdvReac Type Severity Reaction Status Date / Time No Known Allergies Allergy Verified 05/26/19 09:03 History of Present Illness: pt here requesting detox from from etoh use , reports blackouts , claims he had tremors, had w/d seizure 5 mo ago . latest use yesterday, went to [facility] for intoxication / pcp use , per d/c paperwork pt given librium . pmhx : htn , pud , migraine munguia , chronic back pain , bipolar d/o denies SI / HI , not on meds Exam Limitations: No Limitations - Ebola screening Have you traveled outside of the country in the last 21 days: No Have you had contact with anyone from an Ebola affected area: No Do you have a fever: No Patient History - Patient Medical History Hx Anemia: No Hx Asthma: No Hx Chronic Obstructive Pulmonary Disease (COPD): No Hx Cancer: No Hx Cardiac Disorders: No Hx Hypertension: Yes (Not on medication) Hx Hypercholesterolemia: No Hx Pacemaker: No HX Cerebrovascular Accident: No Hx Seizures: No Hx Dementia: No Hx Diabetes: No Hx Gastrointestinal Disorders: Yes (GERD- Not on medication) Hx Liver Disease: No Hx Genitourinary Disorders: No Hx Sexually Transmitted Disorders: No Hx Renal Disease (ESRD): No Hx Thyroid Disease: No Hx Human Immunodeficiency Virus (HIV): No (negative 01/18/19 ) Hx Hepatitis C: No Hx Depression: Yes (Not on medication) Hx Suicide Attempt: No Hx Bipolar Disorder: Yes (non compliance) Hx Schizophrenia: No - Patient Surgical History Past Surgical History: Yes Hx Neurologic Surgery: No Hx Cataract Extraction: No Hx Cardiac Surgery: No Hx Lung Surgery: No Hx Breast Surgery: No Hx Breast Biopsy: No Hx Abdominal Surgery: No Hx Appendectomy: No Hx Cholecystectomy: No Hx Genitourinary Surgery: No Hx Section: No Hx Orthopedic Surgery: No Other Surgical History: left inguinal hernia repair.in 1995 recurrent Anesthesia Reaction: No - PPD History Date: 02/20/18 Results: 0 mm - Smoking Cessation Smoking history: Current every day smoker Have you smoked in the past 12 months: Yes Aproximately how many cigarettes per day: 5 Hx Chewing Tobacco Use: No Initiated information on smoking cessation: Yes 'Breaking Loose' booklet given: 05/26/19 - Substances abused Alcohol Substance route: Oral Frequency: Daily Amount used: 2-3 pints of bacardi Age of first use: 14 Date of last use: 05/26/19 Marijuana/Hashish Substance route: Smoking Frequency: Daily Amount used: $60 Age of first use: 14 Date of last use: 05/25/19 Cocaine Substance route: Inhalation Frequency: 1-2 times per week Amount used: $100 Age of first use: 14 Date of last use: 12/11/18 Other Other (specify): pcp Substance route: Smoking Frequency: 3-6 times per week Amount used: 2 blunts Age of first use: 13 Date of last use: 05/23/19 Admission Physical Exam BHS - Vital Signs Vital Signs: Vital Signs - 24 hr 05/26/19 09:07 Temperature 98 F Pulse Rate 83 Respiratory 18 Rate Blood Pressure 154/80 - Physical General Appearance: Yes: Mild Distress, Anxious HEENTM: Yes: EOMI, Hearing grossly Normal, Normocephalic, Normal Voice Respiratory: Yes: Chest Non-Tender, Lungs Clear, Normal Breath Sounds, No Respiratory Distress, No Accessory Muscle Use Neck: Yes: No masses,lesions,Nodules, Trachea in good position Cardiology: Yes: Regular Rhythm, Regular Rate, S1, S2 Abdominal: Yes: Non Tender, Soft Musculoskeletal: Yes: Gait Steady Extremities: Yes: Normal Range of Motion, Non-Tender Neurological: Yes: Fully Oriented, Alert, Motor Strength 5/5 Integumentary: Yes: Warm - Diagnostic (1) Alcohol dependence with uncomplicated withdrawal Current Visit: Yes Status: Chronic (2) Cannabis dependence Current Visit: Yes Status: Chronic (3) PCP (phencyclidine) abuse Current Visit: Yes Status: Suspected Comment: As per self-report. Toxicology is negative for PCP at time of admission. Breathalyzer - Breathalyzer Breathalyzer: 0 Urine Drug Screen - Test Device Lot number: [id number] Expiration date: 01/18/21 - Control Is test valid?: Yes - Results Drug screen NEGATIVE: No Urine drug screen results: THC-Marijuana, BZO-Benzodiazepines Inpatient Rehab Admission - Rehab Decision to Admit Inpatient rehab admission?: No
[2019-05-26] MEDS ORDERED: ACETAMINOPHEN 325 MG TABLET (FP) PO PRN ×2 (10:39)
[2019-05-26] MEDS ORDERED: hydrOXYzine PAMOATE 25 MG CAPSULE (FP) PO PRN (10:39)
[2019-05-26] MEDS ORDERED: MAGNESIUM CITRATE 300 ML BOTTLE PO PRN (10:39)
[2019-05-26] MEDS ORDERED: MENTHOL/PHENOL 1 EACH UD MM PRN (10:39)
[2019-05-26] MEDS ORDERED: MAG HYDROX/AL HYDROX/SIMETH 30 ML UNIT-DOSE CUP PO PRN (10:39)
[2019-05-26] MEDS ORDERED: MELATONIN 5 MG TABLETS PO PRN (10:39)
[2019-05-26] MEDS ORDERED: diazePAM 5 MG TABLET PO PRN (10:39)
[2019-05-26] MEDS ORDERED: MAGNESIUM HYDROX 2400MG/30ML ORAL SUSPENSION 30 ML CUP PO PRN (10:39)
[2019-05-26] MEDS ORDERED: BISMUTH SUBSALICYLATE 524 MG/30 ML UD PO PRN (10:39)
[2019-05-26] MEDS: diazePAM 5 MG TABLET PO SCH ×2 (14:15→22:07)
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
[2019-05-26] MEDS: THIAMINE HCL 100 MG TABLET (FP) PO SCH (22:07)
[2019-05-26] MEDS: QUEtiapine FUMARATE 50 MG TABLET PO SCH (22:07)
[2019-05-27] MEDS: diazePAM 5 MG TABLET PO SCH ×3 (05:46→17:52)
[2019-05-27] MEDS: PRENATAL VITAMINS W/ FOLIC ACID TABLET (FP) PO SCH (10:38)
[2019-05-27] MEDS: IBUPROFEN 400 MG TABLET (FP) PO PRN ×2 (10:39→20:33)
--- NOTE | 2019-05-27 12:22 | PN ---
S CIWA - CIWA Score Nausea/Vomitin-No Nausea/No Vomiting Muscle Tremors: None Anxiety: 1-Mildly Anxious Agitation: 0-Normal Activity Paroxysmal Sweats: 2 Orientation: 0-Oriented Tacttile Disturbances: 0-None Auditory Disturbances: 0-None Visual Disturbances: 0-None Headache: 0-None Present CIWA-Ar Total Score: 3 BHS Progress Note (SOAP) Subjective: c/o mild sweats and anxiety. Objective: 05/27/19 12:21 Vital Signs 05/27/19 05/27/19 06:55 09:18 Temperature 97 F L 97.0 F L Pulse Rate 64 66 Respiratory 18 16 Rate Blood Pressure 122/76 124/80 Assessment: 05/27/19 12:21 AOX3, in no acute respiratory distress. Full ROM, ambulating in the unit. Withdrawal symptoms. For d/c tomorrow. Plan: continue detox. D/C in AM.
[2019-05-27] MEDS: QUEtiapine FUMARATE 50 MG TABLET PO SCH (22:07)
[2019-05-27] MEDS: THIAMINE HCL 100 MG TABLET (FP) PO SCH (22:07)
[2019-05-28] MEDS ORDERED: diazePAM 5 MG TABLET PO ONE (06:00)
[2019-05-28 09:07] VITALS: BP 114/79; PULSE 64; TEMP 96.7
--- NOTE | 2019-05-28 10:21 | DS ---
[facility] Detox Discharge Summary Admission Date: 05/26/19 Discharge Date: 05/28/19 - History Present History: Alcohol Dependence Additional Comments: 33 years old male admitted on 05/26/19 for alohol withdrawal sx management treated with valium detox regimen patient is alert oriented x 3 respiratory clear lung bilaterally on auscultation extremities full range of motion skin warm and dry Pertinent Past History: patient agrees to return to his primary care community health provider "neurologist" for medical follow up - Physical Exam Results Vital Signs: Vital Signs Temperature 96.7 F L 05/28/19 09:06 Pulse Rate 64 05/28/19 09:06 Respiratory Rate 18 05/28/19 09:06 Blood Pressure 114/79 05/28/19 09:06 O2 Sat by Pulse Oximetry (%) Pertinent Admission Physical Exam Findings: alcohol withdrawal sx lab see 01/27/2019 report - Treatment Hospital Course: Detox Protocol Followed, Detoxed Safely, Responded well, Discharged Condition Good, Rehab Referral Accepted Patient has Accepted a Rehab Referral to: [facility] - Medication Discharge Medications: Ambulatory Orders Omeprazole 40 mg PO DAILY #30 capsule. 12/20/18 Ibuprofen 800 mg PO TID 01/27/19 Quetiapine Fumarate [Seroquel -] 100 mg PO HS #30 tablet 01/29/19 Amlodipine Besylate 2.5 mg PO DAILY #30 tablet 01/30/19 levETIRAcetam [Keppra -] 500 mg PO BID #60 tablet 01/30/19 - Diagnosis (1) Alcohol dependence with uncomplicated withdrawal Current Visit: Yes Status: Acute (2) Nicotine dependence Current Visit: Yes Status: Acute Qualifiers: Nicotine product type: cigarettes Substance use status: in withdrawal Qualified Code(s): F17.213 - Nicotine dependence, cigarettes, with withdrawal (3) Substance induced mood disorder Current Visit: Yes Status: Suspected (4) Essential hypertension Current Visit: Yes Status: Chronic (5) Seizure Current Visit: Yes Status: Chronic - AMA Did Patient Leave Against Medical Advice: No CIWA Score - CIWA Score Nausea/Vomitin-No Nausea/No Vomiting Muscle Tremors: None Anxiety: 0-No Anxiety, at Ease Agitation: 0-Normal Activity Paroxysmal Sweats: 1-Minimal Palms Moist Orientation: 0-Oriented Tacttile Disturbances: 0-None Auditory Disturbances: 0-None Visual Disturbances: 0-None Headache: 0-None Present CIWA-Ar Total Score: 1
[2019-05-28] MEDS: PRENATAL VITAMINS W/ FOLIC ACID TABLET (FP) PO SCH (11:05)
== END 2019-05-28 09:37 | disposition home or self-care (01) | DRG 774 ==
LOC: YASAS 08:44 → Y3N 11:17
PROVIDERS: ADMIT Allergy & Immunology; ATTEND Allergy & Immunology
PROC: HZ2ZZZZ Detoxification Services for Substance Abuse Treatment (ICD-10-PCS; principal; 2019-05-26)
DX: F10.230 Alcohol dependence with withdrawal, uncomplicated (principal); F12.20 Cannabis dependence, uncomplicated; F14.20 Cocaine dependence, uncomplicated; F16.10 Hallucinogen abuse, uncomplicated; F17.210 Nicotine dependence, cigarettes, uncomplicated; F19.24 Other psychoactive substance dependence with psychoactive substance-induced mood disorder; F31.9 Bipolar disorder, unspecified; G40.909 Epilepsy, unspecified, not intractable, without status epilepticus; K21.9 Gastro-esophageal reflux disease without esophagitis; Z87.11 Personal history of peptic ulcer disease; Z91.19 Patient's noncompliance with other medical treatment and regimen

== ENCOUNTER 2019-07-08 08:55 | Inpatient (IN) | payer OTHER ==
[2019-07-08 09:21] VITALS: BMI 25.1
--- NOTE | 2019-07-08 09:42 | HP ---
CIWA Score Nausea/Vomitin-Mild Nausea/No Vomiting Muscle Tremors: 3 Anxiety: 4-Mod. Anxious/Guarded Agitation: 1-Slight > Activity Paroxysmal Sweats: No Perspiration Orientation: 1-Uncertain about Date Tacttile Disturbances: 1-Very Mild Itch/Numbness Auditory Disturbances: 1-Very Mild Visual Disturbances: 1-Very Mild Sensitivity Headache: 2-Mild CIWA-Ar Total Score: 15 - Admission Criteria OASAS Guidelines: Admission for Medically Managed Detox: Requires at least one of the followin. CIWA greater than 12 2. Seizures within the past 24 hours 3. Delirium tremens within the past 24 hours 4. Hallucinations within the past 24 hours 5. Acute intervention needed for co occurring medical disorder 6. Acute intervention needed for co occurring psychiatric disorder 7. Severe withdrawal that cannot be handled at a lower level of care (continued vomiting, continued diarrhea, abnormal vital signs) requiring intravenous medication and/or fluids 8. Patient presents the following: CIWA greater than 12 Admission Criteria Met: Admission criteria met Admitting History and Physical - Admission History Source: Patient, Medical Record - Past Medical History [employer]: Yes: Migraine, Seizure Cardiovascular: Yes: HTN Gastrointestinal: Yes: Peptic Ulcer Disease Psych: Yes: Bipolar, Schizophrenia - Smoking History Smoking history: Current every day smoker Have you smoked in the past 12 months: Yes Aproximately how many cigarettes per day: 10 - Alcohol/Substance Use Hx Alcohol Use: Yes History of Substance Use: reports: Cocaine, Marijuana - Social History Usual Living Arrangement: Yes: Other (lives with sister) ADL: Support Services (gets SSI) Admission ROS [facility] Chief Complaint: My family is tired of how I'm drinking, they want me to get myself together- I don't want to lose my family so I need help Allergies/Adverse Reactions: Allergies Allergy/AdvReac Type Severity Reaction Status Date / Time No Known Allergies Allergy Verified 07/08/19 09:09 History of Present Illness: 34 y gentleman here for detox from alcohol, also using cannabis and cocaine. This is one of multiple admissions for treatment - last here 05/26-05/28/19 and was supposed to go into rehab but no available beds - states he did ok for a week then relapsed. Patient with history of seizures. He comes to us today from [facility] - he states he went there due to intocxication - according to his discharge paperwork he was evaluated for 'cocaine induced" chest pain " - treated with valium, haldol, versed and electrolytes. Patient states he had been 'irritated' so given the haldol ' - denies being violent. Patient currently living with sister and is on SSI - states low literacy, and learning disabled. Exam Limitations: No Limitations - Ebola screening Have you traveled outside of the country in the last 21 days: No (N) Have you had contact with anyone from an Ebola affected area: No Do you have a fever: No - Review of Systems Constitutional: Loss of Appetite, Malaise, Changes in sleep, Weakness EENT: reports: No Symptoms Reported Respiratory: reports: No Symptoms reported Cardiac: reports: No Symptoms Reported GI: reports: Nausea, Poor Appetite : reports: Frequency Musculoskeletal: reports: Back Pain Integumentary: reports: Dryness Neuro: reports: Headache, Tremors, Weakness Endocrine: reports: No Symptoms Reported Hematology: reports: No Symptoms Reported Psychiatric: reports: Judgement Intact, Mood/Affect Appropiate Other Systems: Reviewed and Negative Patient History - Patient Medical History Hx Anemia: No Hx Asthma: No Hx Chronic Obstructive Pulmonary Disease (COPD): No Hx Cancer: No Hx Cardiac Disorders: No Hx Congestive Heart Failure: No Hx Hypertension: Yes Hx Hypercholesterolemia: No Hx Pacemaker: No HX Cerebrovascular Accident: No Hx Seizures: Yes (last time April 2019) Hx Dementia: No Hx Diabetes: No Hx Gastrointestinal Disorders: Yes (GERD, history of peptic ulcers) Hx Liver Disease: No Hx Genitourinary Disorders: No Hx Sexually Transmitted Disorders: No Hx Renal Disease (ESRD): No Hx Thyroid Disease: No Hx Human Immunodeficiency Virus (HIV): No (negative 01/18/19 ) Hx Hepatitis C: No Hx Depression: Yes (on and off medications - hospitalized at [facility] about February 2019) Hx Suicide Attempt: No (denies) Hx Bipolar Disorder: Yes (non compliance) Hx Schizophrenia: No - Patient Surgical History Past Surgical History: Yes Hx Neurologic Surgery: No Hx Cataract Extraction: No Hx Cardiac Surgery: No Hx Lung Surgery: No Hx Breast Surgery: No Hx Breast Biopsy: No Hx Abdominal Surgery: No Hx Appendectomy: No Hx Cholecystectomy: No Hx Genitourinary Surgery: No Hx Section: No Hx Orthopedic Surgery: No Other Surgical History: left inguinal hernia repair.in 1995 recurrent Anesthesia Reaction: No - PPD History Previous Implant?: Yes Documented Results: Negative w/proof Implanted On Prior [facility] Admission?: Yes Date: 02/20/18 Results: 0 mm PPD to be Administered?: No - Reproductive History Patient is a Female of Child Bearing Age (11 -55 yrs old): No - Smoking Cessation Smoking history: Current every day smoker Have you smoked in the past 12 months: Yes Aproximately how many cigarettes per day: 10 Hx Chewing Tobacco Use: No Initiated information on smoking cessation: Yes 'Breaking Loose' booklet given: 07/08/19 (give on floor) - Substance & Tx. History Hx Alcohol Use: Yes Hx Substance Use: Yes Substance Use Type: Alcohol, Cocaine, Marijuana Hx Substance Use Treatment: Yes (detox, rehab) - Substances abused Alcohol Substance route: Oral Frequency: Daily Amount used: 2-3 pints liquor Age of first use: 14 Date of last use: 07/07/19 Marijuana/Hashish Substance route: Smoking Frequency: Daily Amount used: 2/8th Age of first use: 13 Date of last use: 07/07/19 Cocaine Substance route: Inhalation Frequency: 1-3 times last 30 days Amount used: 1 gram Age of first use: 12 Date of last use: 07/06/19 Admission Physical Exam BHS - Vital Signs Vital Signs: Vital Signs - 24 hr 07/08/19 09:09 Temperature 97.1 F L Pulse Rate 74 Respiratory 20 Rate Blood Pressure 130/92 - Physical General Appearance: Yes: Nourished, Appropriately Dressed, Moderate Distress, Thin, Tremorous, Anxious HEENTM: Yes: EOMI, Hearing grossly Normal, Normocephalic, Normal Voice, Pharynx Normal Respiratory: Yes: Normal Breath Sounds, No Respiratory Distress Neck: Yes: No masses,lesions,Nodules Breast: Yes: Breast Exam Deferred Cardiology: Yes: Regular Rhythm, Regular Rate Abdominal: Yes: Flat, Soft Genitourinary: Yes: Frequency Back: Yes: Normal Inspection Musculoskeletal: Yes: full range of Motion, Gait Steady, Back pain Extremities: Yes: Normal Inspection, Normal Range of Motion, Non-Tender, Tremors Neurological: Yes: Fully Oriented, Alert, Motor Strength 5/5, Normal Mood/Affect , Normal Response Integumentary: Yes: Normal Color, Dry, Warm Lymphatic: Yes: Within Normal Limits - Diagnostic (1) Alcohol dependence with uncomplicated withdrawal Current Visit: Yes Status: Chronic (2) Cocaine dependence Current Visit: Yes Status: Chronic Qualifiers: Substance use status: uncomplicated Qualified Code(s): F14.20 - Cocaine dependence, uncomplicated (3) Cannabis dependence Current Visit: Yes Status: Chronic (4) Nicotine dependence Current Visit: Yes Status: Chronic Qualifiers: Nicotine product type: cigarettes Substance use status: uncomplicated Qualified Code(s): F17.210 - Nicotine dependence, cigarettes, uncomplicated (5) Essential hypertension Current Visit: Yes Status: Chronic (6) History of bipolar disorder Current Visit: Yes Status: Chronic (7) History of peptic ulcer Current Visit: Yes Status: Chronic (8) History of seizure Current Visit: Yes Status: Chronic Cleared for Admission S - Detox or Rehab [facility] Level of Care: Medically Managed Detox Regimen/Protocol: Librium Breathalyzer - Breathalyzer Breathalyzer: 0.023 Urine Drug Screen - Test Device Lot number: [id number] Expiration date: 01/18/21 - Control Is test valid?: Yes - Results Drug screen NEGATIVE: No Urine drug screen results: THC-Marijuana, BEN-Cocaine, BZO-Benzodiazepines Inpatient Rehab Admission - Rehab Decision to Admit Inpatient rehab admission?: No
[2019-07-08] MEDS ORDERED: MAG HYDROX/AL HYDROX/SIMETH 30 ML UNIT-DOSE CUP PO PRN (09:46)
[2019-07-08] MEDS ORDERED: IBUPROFEN 400 MG TABLET (FP) PO PRN (09:46)
[2019-07-08] MEDS ORDERED: METHOCARBAMOL 500 MG TABLET PO PRN (09:46)
[2019-07-08] MEDS ORDERED: MENTHOL/PHENOL 1 EACH UD MM PRN (09:46)
[2019-07-08] MEDS ORDERED: chlordiazePOXIDE HCL 25 MG CAPSULE PO ONE (09:46)
[2019-07-08] MEDS ORDERED: hydrOXYzine PAMOATE 25 MG CAPSULE (FP) PO PRN (09:46)
[2019-07-08] MEDS ORDERED: NICOTINE POLACRILEX 4 MG GUM BUC PRN (09:46)
[2019-07-08] MEDS ORDERED: chlordiazePOXIDE HCL 25 MG CAPSULE PO PRN (09:46)
[2019-07-08] MEDS ORDERED: MAGNESIUM HYDROX 2400MG/30ML ORAL SUSPENSION 30 ML CUP PO PRN (09:46)
[2019-07-08] MEDS ORDERED: ACETAMINOPHEN 325 MG TABLET (FP) PO PRN ×2 (09:46)
[2019-07-08] MEDS ORDERED: MELATONIN 5 MG TABLETS PO PRN (09:46)
[2019-07-08] MEDS ORDERED: MAGNESIUM CITRATE 300 ML BOTTLE PO PRN (09:46)
[2019-07-08] MEDS ORDERED: BISMUTH SUBSALICYLATE 524 MG/30 ML UD PO PRN (09:46)
[2019-07-08 11:49] LABS: HEMATOCRIT 38.2 % (35.4-49); HEMOGLOBIN 13.1 GM/dL (11.7-16.9); MCH 33.4 pg (25.7-33.7); MCHC 34.4 g/dl (32.0-35.9); MEAN CELL VOLUME 97.1 fl (80-96); PLATELET COUNT 241 K/MM3 (134-434); RBC 3.93 M/mm3 (4.00-5.60); RDW 13.6 % (11.9-15.9); WHITE BLOOD COUNT 7.2 K/mm3 (4.0-10.0)
[2019-07-08 12:00] LABS: ALBUMIN 4.2 g/dl (3.4-5.0); BILIRUBIN,TOTAL 0.5 mg/dL (0.2-1); BLOOD UREA NITROGEN 12.7 mg/dL (7-18); CALCIUM 9.2 mg/dL (8.5-10.1); CREATININE 0.8 mg/dL (0.55-1.3); POTASSIUM 4.1 mmol/L (3.5-5.1); TOT PROT 7.7 g/dl (6.4-8.2)
[2019-07-08] MEDS: TOLNAFTATE 1% CREAM 15 GM TUBE TP SCH ×2 (12:31→22:25)
[2019-07-08] MEDS: levETIRAcetam 500 MG TABLET (FP) PO SCH ×2 (12:31→22:25)
[2019-07-08] MEDS: amLODIPine BESYLATE 5 MG TABLET (FP) PO SCH (12:31)
[2019-07-08] MEDS: PANTOPRAZOLE 40 MG TABLET PO SCH (12:31)
[2019-07-08] MEDS: PRENATAL VITAMINS W/ FOLIC ACID TABLET (FP) PO SCH (12:33)
[2019-07-08] MEDS: chlordiazePOXIDE HCL 25 MG CAPSULE PO SCH ×2 (17:18→22:25)
[2019-07-08] MEDS: QUEtiapine FUMARATE 100 MG TABLET (FP) PO SCH (22:25)
[2019-07-08] MEDS: THIAMINE HCL 100 MG TABLET (FP) PO SCH (22:25)
[2019-07-09] MEDS: chlordiazePOXIDE HCL 25 MG CAPSULE PO SCH ×4 (05:41→22:19)
--- NOTE | 2019-07-09 09:14 | CONSULT ---
[facility] Psychiatric Consult - Data Date of interview: 07/09/19 Admission source: [facility] Identifying data: Patient is a 34 year old single male, father of one, unemployed, resides with sister and is supported with [facility]. This is one of multiple admissions for patient. Patient admitted to for alcohol and marijuana dependence. Substance Abuse History: moking Cessation. Smoking history: Current every day smoker. Have you smoked in the past 12 months: Yes. Aproximately how many cigarettes per day: 10. Hx Chewing Tobacco Use: No. Initiated information on smoking cessation: Yes. 'Breaking Loose' booklet given: 07/08/19 (give on floor ). - Substance & Tx. History. Hx Alcohol Use: Yes. Hx Substance Use: Yes. Substance Use Type: Alcohol, Cocaine, Marijuana. Hx Substance Use Treatment: Yes (detox, rehab). - Substances abused. Alcohol. Substance route: Oral. Frequency: Daily. Amount used: 2-3 pints liquor. Age of first use: 14. Date of last use: 07/07/19. Marijuana/Hashish. Substance route: Smoking. Frequency: Daily. Amount used: 2/8th. Age of first use: 13. Date of last use : 07/07/19. Cocaine. Substance route: Inhalation. Frequency: 1-3 times last 30 days. Amount used: 1 gram. Age of first use: 12. Date of last use: Medical History: Medical profile is remarkable for chronic lumbar pain, recent antecedent of head trauma from fall from stairs in the context of ETOH intoxication (neurosurgery), migraine headaches, peptic ulcer disease, hypertension and history of right inguinal herniorraphy (1995) Psychiatric History: Patient denies history of psychiatric hospitalizations. States that his first psychiatric contact was as an adolescent due to behavior issues and learning disability. Mr. Meléndez reports history of outpatient psychiatric at [facility] for several years. Self reports a diagnosis of Bipolar disorder. Reports being prescribed seroquel in the past. Patient is non compliant with outpatient care. He denies history of suicide attempt. Physical/Sexual Abuse/Trauma History: denies. Mental Status Exam - Mental Status Exam Alert and Oriented to: Time, Place, Person Cognitive Function: Good Patient Appearance: Well Groomed Mood: Euthymic Affect: Appropriate Patient Behavior: Appropriate, Cooperative Speech Pattern: Appropriate Voice Loudness: Normal Thought Process: Goal Oriented Thought Disorder: Not Present Hallucinations: Denies Suicidal Ideation: Denies Homicidal Ideation: Denies Insight/Judgement: Poor Sleep: Poorly Appetite: Fair Muscle strength/Tone: Normal Gait/Station: Normal Psychiatric Findings - Problem List ([place] 1, 2,3) (1) Alcohol dependence with uncomplicated withdrawal Current Visit: Yes Status: Acute (2) Cannabis dependence Current Visit: Yes Status: Chronic (3) Cocaine dependence Current Visit: Yes Status: Chronic Qualifiers: Substance use status: uncomplicated Qualified Code(s): F14.20 - Cocaine dependence, uncomplicated (4) History of bipolar disorder Current Visit: Yes Status: Chronic (5) Nicotine dependence Current Visit: Yes Status: Chronic Qualifiers: Nicotine product type: cigarettes Substance use status: uncomplicated Qualified Code(s): F17.210 - Nicotine dependence, cigarettes, uncomplicated (6) Substance-induced sleep disorder Current Visit: Yes Status: Acute - Initial Treatment Plan Initial Treatment Plan: Psychoeducation provided. Detoxification in progress. Will continue Seroquel 100mg HS. Benefits and side effects discussed. Verbal consent given.
--- NOTE | 2019-07-09 11:03 | EKG ---
Test Reason : Blood Pressure : / mmHG Vent. Rate : 062 BPM Atrial Rate : 062 BPM P-R Int : 210 ms QRS Dur : 094 ms QT Int : 410 ms P-R-T Axes : 074 012 016 degrees QTc Int : 416 ms POOR DATA QUALITY, INTERPRETATION MAY BE ADVERSELY AFFECTED SINUS RHYTHM WITH 1ST DEGREE A-V BLOCK OTHERWISE NORMAL ECG WHEN COMPARED WITH ECG OF 18-FEB-2018 14:00, [place] INTERVAL HAS INCREASED Confirmed by CHLOE SIMONS MD ([id number]) on 07/09/2019 11:03:20 AM Referred By: Confirmed By:CHLOE SIMONS MD
[2019-07-09] MEDS: levETIRAcetam 500 MG TABLET (FP) PO SCH ×2 (11:15→22:20)
[2019-07-09] MEDS: amLODIPine BESYLATE 5 MG TABLET (FP) PO SCH (11:15)
[2019-07-09] MEDS: PRENATAL VITAMINS W/ FOLIC ACID TABLET (FP) PO SCH (11:15)
[2019-07-09] MEDS: PANTOPRAZOLE 40 MG TABLET PO SCH (11:15)
[2019-07-09] MEDS: TOLNAFTATE 1% CREAM 15 GM TUBE TP SCH ×2 (11:18→22:22)
--- NOTE | 2019-07-09 13:17 | PN ---
S CIWA - CIWA Score Nausea/Vomitin-No Nausea/No Vomiting Muscle Tremors: 3 Anxiety: 3 Agitation: 3 Paroxysmal Sweats: 3 Orientation: 0-Oriented Tacttile Disturbances: 0-None Auditory Disturbances: 0-None Visual Disturbances: 0-None Headache: 0-None Present CIWA-Ar Total Score: 12 S Progress Note (SOAP) Subjective: sweats tired irritable Objective: 07/09/19 13:16 Vital Signs Temperature 98.1 F 07/09/19 09:28 Pulse Rate 68 07/09/19 09:28 Respiratory Rate 18 07/09/19 09:28 Blood Pressure 117/79 07/09/19 09:28 O2 Sat by Pulse Oximetry (%) Laboratory Tests 07/08/19 07/08/19 07/08/19 09:50 09:50 09:50 WBC 7.2 RBC 3.93 L Hgb 13.1 Hct 38.2 MCV 97.1 H MCH 33.4 MCHC 34.4 RDW 13.6 Plt Count 241 D MPV 8.0 Sodium 139 Potassium 4.1 Chloride 107 Carbon Dioxide 26 Anion Gap 6 L BUN 12.7 Creatinine 0.8 Est GFR (CKD-EPI)AfAm 133.20 Est GFR (CKD-EPI)NonAf 114.93 Random Glucose 79 Calcium 9.2 Total Bilirubin 0.5 AST 37 ALT 30 Alkaline Phosphatase 72 Total Protein 7.7 Albumin 4.2 RPR Titer Nonreactive labs noted aaox3 ambulating no acute distress Assessment: 07/09/19 13:17 withdrawals Plan: continue detox
[2019-07-09 21:13] VITALS: BP 122/72; PULSE 67; TEMP 97.7
[2019-07-09] MEDS: THIAMINE HCL 100 MG TABLET (FP) PO SCH (22:20)
[2019-07-09] MEDS: QUEtiapine FUMARATE 100 MG TABLET (FP) PO SCH (22:20)
[2019-07-10] MEDS ORDERED: NICOTINE 14 MG/24 HOURS TOPICAL PATCH TD SCH (00:17)
--- NOTE | 2019-07-10 03:22 | PN ---
[facility] Progress Note Note: Patient was seen and evaluated in the the room. As per the nurse, patient had left the floor because he wants to go outside and smoke. Nicotine patch ordered. Patient is demanding to leave the unit and was advised to wait because it is not safe to leave now. Patient agrred to wait and leave in the morning. Vital Signs Temperature 97.7 F 07/09/19 21:12 Pulse Rate 67 07/09/19 21:12 Respiratory Rate 20 07/09/19 21:12 Blood Pressure 122/72 07/09/19 21:12 O2 Sat by Pulse Oximetry (%) Action: Monitor patient
--- NOTE | 2019-07-10 04:35 | DS ---
[facility] Detox Discharge Summary Admission Date: 07/08/19 Discharge Date: 07/10/19 - History Additional Comments: Patient walked out of the floor. He insisted that he wants to leave for personal reasons. Risks and consequences of his action reinforced. Patient is alert and oriented to person, place and time. He is medically stable and reports that he has been compliant with his psych care, communicating with his counselor and psych. medication administration Pertinent Past History: Alcohol dependence, cocaine dependence, nicotine dependence, cannabis dependence , seizure, hypertension, bipolar disorder and peptic ulcer - Physical Exam Results Vital Signs: Vital Signs Temperature 97.7 F 07/09/19 21:12 Pulse Rate 67 07/09/19 21:12 Respiratory Rate 20 07/09/19 21:12 Blood Pressure 122/72 07/09/19 21:12 O2 Sat by Pulse Oximetry (%) Pertinent Admission Physical Exam Findings: Alcohol withdrawal symptoms - Medication Discharge Medications: Ambulatory Orders Omeprazole 40 mg PO DAILY #30 capsule. 12/20/18 Ibuprofen 800 mg PO TID 01/27/19 Quetiapine Fumarate [Seroquel -] 100 mg PO HS #30 tablet 01/29/19 Amlodipine Besylate 2.5 mg PO DAILY #30 tablet 01/30/19 levETIRAcetam [Keppra -] 500 mg PO BID #60 tablet 01/30/19 - Diagnosis (1) Alcohol dependence with uncomplicated withdrawal Current Visit: Yes Status: Chronic (2) Cannabis dependence Current Visit: Yes Status: Chronic (3) Cocaine dependence Current Visit: Yes Status: Chronic Qualifiers: Substance use status: uncomplicated Qualified Code(s): F14.20 - Cocaine dependence, uncomplicated (4) Essential hypertension Current Visit: Yes Status: Chronic (5) History of bipolar disorder Current Visit: Yes Status: Chronic (6) History of peptic ulcer Current Visit: Yes Status: Chronic (7) History of seizure Current Visit: Yes Status: Chronic (8) Nicotine dependence Current Visit: Yes Status: Chronic Qualifiers: Nicotine product type: cigarettes Substance use status: uncomplicated Qualified Code(s): F17.210 - Nicotine dependence, cigarettes, uncomplicated - AMA Did Patient Leave Against Medical Advice: Yes
[2019-07-10] MEDS ORDERED: chlordiazePOXIDE HCL 25 MG CAPSULE PO SCH (05:00)
[2019-07-11] MEDS ORDERED: chlordiazePOXIDE HCL 10 MG CAPSULE PO PRN
[2019-07-11] MEDS ORDERED: chlordiazePOXIDE HCL 10 MG CAPSULE PO SCH (05:00)
[2019-07-12] MEDS ORDERED: chlordiazePOXIDE HCL 10 MG CAPSULE PO SCH (05:00)
[2019-07-13] MEDS ORDERED: chlordiazePOXIDE HCL 10 MG CAPSULE PO ONE (05:00)
== END 2019-07-10 04:00 | disposition left against medical advice (07) | DRG 770 ==
LOC: YASAS 08:55 → Y3N 10:37 → Y6N 11:51
PROVIDERS: ADMIT Allergy & Immunology; ATTEND Allergy & Immunology
PROC: HZ2ZZZZ Detoxification Services for Substance Abuse Treatment (ICD-10-PCS; principal; 2019-07-08)
DX: F10.230 Alcohol dependence with withdrawal, uncomplicated (principal); F14.20 Cocaine dependence, uncomplicated; F12.20 Cannabis dependence, uncomplicated; F17.210 Nicotine dependence, cigarettes, uncomplicated; F19.282 Other psychoactive substance dependence with psychoactive substance-induced sleep disorder; I10 Essential (primary) hypertension; G40.909 Epilepsy, unspecified, not intractable, without status epilepticus; K21.9 Gastro-esophageal reflux disease without esophagitis; Z91.14 Patient's other noncompliance with medication regimen
CPT/HCPCS: 36415; 80053; 85027; 86593; 93005; 93010

== ENCOUNTER 2020-03-02 09:39 | Inpatient (IN) | payer OTHER ==
--- NOTE | 2020-03-02 11:35 | BHS.RME ---
Substance Use & Tx History - Substance Use History Alcohol Substance amount: 3 pints of bacardi,vodka Frequency of use: Daily Substance route: Oral Date of Last Use: 03/02/20 Marijuana/Hashish Substance amount: 45 $ Frequency of use: Daily Substance route: Oral, Smoking Date of Last Use: 03/02/20 PCP Substance amount: 50$ Frequency of use: Less than 3 times per week Substance route: Smoking Date of Last Use: 02/24/20 Cocaine- Powder Substance amount: 50$ Frequency of use: Less than 3 times per week Substance route: Inhalation (ex: sniffing or snorting) Date of Last Use: 02/26/20 - Last Treatment Date of last treatment: [facility] 11/09/19 to 11/12/19 Where was last treatment: Detox Physical/Psych/Mental Status - Behavior Eye Contact: Decreased - Cooperativeness Cooperativeness: Cooperative - Thinking Thought Processes: Logical Thought content: Future oriented - Physical Health Problems Is patient presently having any pain?: No Does patient presently have any injuries (include location): No Does patient currently have a fever: No CIWA Nausea/Vomitin Muscle Tremors: 3 Anxiety: 3 Agitation: 3 Paroxysmal Sweats: 1-Minimal Palms Moist Orientation: 0-Oriented Tacttile Disturbances: 1-Very Mild Itch/Numbness Auditory Disturbances: 0-None Visual Disturbances: 0-None Headache: 2-Mild CIWA-Ar Total Score: 15
--- NOTE | 2020-03-02 12:01 | HP ---
CIWA Score Nausea/Vomitin Muscle Tremors: 3 Anxiety: 3 Agitation: 3 Paroxysmal Sweats: 1-Minimal Palms Moist Orientation: 0-Oriented Tacttile Disturbances: 1-Very Mild Itch/Numbness Auditory Disturbances: 0-None Visual Disturbances: 0-None Headache: 2-Mild CIWA-Ar Total Score: 15 - Admission Criteria OASAS Guidelines: Admission for Medically Managed Detox: Requires at least one of the followin. CIWA greater than 12 2. Seizures within the past 24 hours 3. Delirium tremens within the past 24 hours 4. Hallucinations within the past 24 hours 5. Acute intervention needed for co occurring medical disorder 6. Acute intervention needed for co occurring psychiatric disorder 7. Severe withdrawal that cannot be handled at a lower level of care (continued vomiting, continued diarrhea, abnormal vital signs) requiring intravenous medication and/or fluids 8. 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 denied opiate use bipolar disorder hypertension,seizure,gerd ncotine dependence living in the intermediate,unemployed, ambulation with cane left Craniotomy post trauma in 2016 at [facility] History Source: Patient Limitations to Obtaining History: No Limitations - Past Medical History MANUFACTURING ENGINEERING DIRECTOR: Yes: Migraine, Seizure Cardiovascular: Yes: HTN Gastrointestinal: Yes: GERD, Peptic Ulcer Disease Psych: Yes: Bipolar, Schizophrenia Additional Past Medical History: left inguinal hernia - Past Surgical History Additional Past Surgical History: left craniotomy post trauma in 2016 - Smoking History Smoking history: Current every day smoker Have you smoked in the past 12 months: Yes Aproximately how many cigarettes per day: 10 - Alcohol/Substance Use Hx Alcohol Use: Yes History of Substance Use: reports: Cocaine, Marijuana Date of Last Use: 03/02/20 - Social History Usual Living Arrangement: Yes: Other (intermediate) Do you think of yourself as: Straight/Heterosexual ADL: Support Services (gets SSI) Occupation: unemployed History of Recent Travel: No Other Social History: unemployed,no legal issue Admission ROS [facility] - HPI Chief Complaint: i need help to stop drinking alcohol and drug Allergies/Adverse Reactions: Allergies Allergy/AdvReac Type Severity Reaction Status Date / Time No Known Allergies Allergy Verified 03/02/20 12:25 History of Present Illness: this 34 years old male with alcohol ,marijuana and cocaine ,pcp abused, seeking detox,withdrawal symptom Exam Limitations: No Limitations - Ebola screening Have you traveled outside of the country in the last 21 days: No Have you had contact with anyone from an Ebola affected area: No Have you been sick,other than usual withdrawal symptoms: No Do you have a fever: No - Review of Systems Constitutional: Loss of Appetite, Malaise, Night Sweats, Changes in sleep EENT: reports: Nose Congestion Respiratory: reports: No Symptoms reported Cardiac: reports: No Symptoms Reported GI: reports: Nausea, Poor Appetite, Vomiting, Abdominal cramping : reports: No Symptoms Reported Musculoskeletal: reports: Back Pain, Muscle Pain Integumentary: reports: Dryness Neuro: reports: Headache, Tremors Endocrine: reports: No Symptoms Reported Hematology: reports: No Symptoms Reported Psychiatric: reports: No Sypmtoms Reported, Judgement Intact, Mood/Affect Appropiate, Orientated x3, other (bipolar disorder) Patient History - Patient Medical History Hx Anemia: No Hx Asthma: No Hx Chronic Obstructive Pulmonary Disease (COPD): No Hx Cancer: No Hx Cardiac Disorders: No Hx Congestive Heart Failure: No Hx Hypertension: Yes (on med) Hx Hypercholesterolemia: No Hx Pacemaker: No HX Cerebrovascular Accident: No Hx Seizures: Yes (on keppra) Hx Dementia: No Hx Diabetes: No Hx Gastrointestinal Disorders: No Hx Liver Disease: No Hx Genitourinary Disorders: No Hx Sexually Transmitted Disorders: No Hx Renal Disease (ESRD): No Hx Thyroid Disease: No Hx Human Immunodeficiency Virus (HIV): No (negative 01/18/19 ) Hx Hepatitis C: No Hx Depression: Yes Hx Suicide Attempt: No Hx Bipolar Disorder: Yes (non compliance) Hx Schizophrenia: No Other Medical History: head injury with craniotomy left [address] [place] [address] - Patient Surgical History Past Surgical History: Yes Hx Neurologic Surgery: Yes (left craniotomy) Hx Cataract Extraction: No Hx Cardiac Surgery: No Hx Lung Surgery: No Hx Breast Surgery: No Hx Breast Biopsy: No Hx Abdominal Surgery: No Hx Appendectomy: No Hx Cholecystectomy: No Hx Genitourinary Surgery: No Hx Section: No Hx Orthopedic Surgery: No Other Surgical History: left inguinal hernia repair.in 1995 recurrent Anesthesia Reaction: No - PPD History Previous Implant?: Yes Implanted On Prior [facility] Admission?: Yes Date: 07/10/19 Results: 0 mm PPD to be Administered?: No - Smoking Cessation Smoking history: Current every day smoker Have you smoked in the past 12 months: Yes Aproximately how many cigarettes per day: 10 Cigars Per Day: 0 Hx Chewing Tobacco Use: No Initiated information on smoking cessation: Yes 'Breaking Loose' booklet given: 03/02/20 - Substance & Tx. History Hx Alcohol Use: Yes Hx Substance Use: Yes Substance Use Type: Alcohol, Cocaine, Marijuana Hx Substance Use Treatment: Yes ([facility] 11/09/19 to 11/11/09) - Substances abused Alcohol Substance route: Oral Frequency: Daily Amount used: 3 pints of vodka and bacardi Age of first use: 14 Date of last use: 03/02/20 Marijuana/Hashish Frequency: Daily Amount used: 45$ Age of first use: 13 Date of last use: 03/02/20 PCP Substance route: Smoking Frequency: 1-2 times per week Amount used: 50$ Age of first use: 12 Date of last use: 02/24/20 Cocaine Substance route: Inhalation Frequency: 3-6 times per week Amount used: 100$ Age of first use: 13 Date of last use: 02/24/20 Admission Physical Exam [facility] - Vital Signs Vital Signs: bp 137/98,p65,r18,t97.1,meka 0.018,pulse ox 100% - Physical General Appearance: Yes: Moderate Distress, Tremorous, Irritable, Sweating, Anxious HEENTM: Yes: Normal ENT Inspection, FREDIS, Pharynx Normal, Other (scar left fronto parietal area) Respiratory: Yes: Lungs Clear, Normal Breath Sounds, No Respiratory Distress Neck: Yes: Within Normal Limits, Supple, Trachea in good position Breast: Yes: Within Normal Limits Cardiology: Yes: Within Normal Limits, Regular Rhythm, Regular Rate, S1, S2 Abdominal: Yes: Within Normal Limits, Normal Bowel Sounds, Non Tender, Flat, Soft, Surgical Scar Genitourinary: Yes: Within Normal Limits Back: Yes: Muscle Spasm Musculoskeletal: Yes: Back pain, Muscle Pain Extremities: Yes: Tremors Neurological: Yes: hot dip galvanizer II-XII NML intact, Fully Oriented, Alert, Motor Strength 5/5 Integumentary: Yes: Dry Lymphatic: Yes: Within Normal Limits - Diagnostic (1) Alcohol dependence with uncomplicated withdrawal Current Visit: No Status: Acute (2) Cannabis dependence Current Visit: No Status: Acute (3) PCP (phencyclidine) abuse Current Visit: No Status: Acute Comment: As per self-report. Toxicology is negative for PCP at time of admission. (4) Cocaine dependence Current Visit: No Status: Chronic Qualifiers: Substance use status: uncomplicated Qualified Code(s): F14.20 - Cocaine dependence, uncomplicated (5) Essential hypertension Current Visit: No Status: Chronic (6) GERD (gastroesophageal reflux disease) Current Visit: No Status: Chronic Qualifiers: Esophagitis presence: without esophagitis Qualified Code(s): K21.9 - Gastro-esophageal reflux disease without esophagitis (7) History of bipolar disorder Current Visit: No Status: Chronic (8) History of seizure Current Visit: No Status: Chronic (9) Seizure Current Visit: No Status: Chronic (10) Head injury Current Visit: No Status: Resolved (11) History of subdural hematoma Current Visit: No Status: Resolved (12) Bipolar disorder Current Visit: No Status: Ruled-out (13) GERD (gastroesophageal reflux disease) Current Visit: Yes Status: Acute (14) Syncope Current Visit: Yes Status: Acute Cleared for Admission S - Detox or Rehab S Level of Care: Medically Managed Detox Regimen/Protocol: Librium Breathalyzer - Breathalyzer Breathalyzer: 0.023 Urine Drug Screen - Test Device Lot number: [id number] Expiration date: 01/18/21 - Control Is test valid?: Yes - Results Drug screen NEGATIVE: No Urine drug screen results: THC-Marijuana, BEN-Cocaine, BZO-Benzodiazepines Inpatient Rehab Admission - Rehab Decision to Admit Inpatient rehab admission?: No
[2020-03-02] MEDS ORDERED: NICOTINE POLACRILEX 2 MG GUM BUC PRN (12:34)
[2020-03-02] MEDS ORDERED: chlordiazePOXIDE HCL 25 MG CAPSULE PO PRN (12:34)
[2020-03-02] MEDS ORDERED: IBUPROFEN 400 MG TABLET (FP) PO PRN (12:34)
[2020-03-02] MEDS ORDERED: ACETAMINOPHEN 325 MG TABLET (FP) PO PRN ×2 (12:34)
[2020-03-02] MEDS ORDERED: MAGNESIUM CITRATE 300 ML BOTTLE PO PRN (12:34)
[2020-03-02] MEDS ORDERED: MENTHOL/PHENOL 1 EACH UD MM PRN (12:34)
[2020-03-02] MEDS ORDERED: MAG HYDROX/AL HYDROX/SIMETH 30 ML UNIT-DOSE CUP PO PRN (12:34)
[2020-03-02] MEDS ORDERED: MAGNESIUM HYDROX 2400MG/30ML ORAL SUSPENSION 30 ML CUP PO PRN (12:34)
[2020-03-02] MEDS ORDERED: BISMUTH SUBSALICYLATE 524 MG/30 ML UD PO PRN (12:34)
[2020-03-02] MEDS ORDERED: METHOCARBAMOL 500 MG TABLET PO PRN (12:34)
[2020-03-02 12:36] VITALS: BMI 24.7
[2020-03-02] MEDS ORDERED: ONDANSETRON *ODT* 4 MG TABLET SL PRN (13:18)
[2020-03-02] MEDS: NICOTINE 21 MG/24 HOURS TOPICAL PATCH TD SCH (14:37)
[2020-03-02] MEDS ORDERED: MASKS NR ONE (14:38)
[2020-03-02] MEDS: hydrOXYzine PAMOATE 25 MG CAPSULE (FP) PO SCH ×2 (14:39→23:53)
[2020-03-02] MEDS: chlordiazePOXIDE HCL 25 MG CAPSULE PO SCH ×2 (18:54→22:49)
[2020-03-02] MEDS ORDERED: MELATONIN 5 MG TABLETS PO SCH (22:00)
[2020-03-02] MEDS ORDERED: THIAMINE HCL 100 MG TABLET (FP) PO SCH (22:00)
[2020-03-02] MEDS: levETIRAcetam 500 MG TABLET (FP) PO SCH (22:48)
[2020-03-03] MEDS: hydrOXYzine PAMOATE 25 MG CAPSULE (FP) PO SCH ×3 (05:12→13:43)
[2020-03-03] MEDS: chlordiazePOXIDE HCL 25 MG CAPSULE PO SCH ×2 (05:12→11:53)
[2020-03-03 09:06] LABS: HEMATOCRIT 38.5 % (35.4-49); HEMOGLOBIN 13.4 GM/dL (11.7-16.9); MCH 34.5 pg (25.7-33.7); MCHC 34.7 g/dl (32.0-35.9); MEAN CELL VOLUME 99.3 fl (80-96); PLATELET COUNT 207 K/MM3 (134-434); RBC 3.87 M/mm3 (4.00-5.60); RDW 13.7 % (11.9-15.9); WHITE BLOOD COUNT 3.5 K/mm3 (4.0-10.0)
[2020-03-03 09:22] VITALS: BP 129/82; PULSE 58; TEMP 98.1
[2020-03-03 09:32] LABS: ALBUMIN 3.8 g/dl (3.4-5.0); BILIRUBIN,TOTAL 0.9 mg/dL (0.2-1); BLOOD UREA NITROGEN 12.8 mg/dL (7-18); CALCIUM 9.1 mg/dL (8.5-10.1); POTASSIUM 3.4 mmol/L (3.5-5.1)
[2020-03-03] MEDS ORDERED: PANTOPRAZOLE 20 MG TABLET PO SCH (10:00)
[2020-03-03] MEDS ORDERED: PRENATAL VITAMINS W/ FOLIC ACID TABLET (FP) PO SCH (10:00)
[2020-03-03] MEDS ORDERED: amLODIPine BESYLATE 5 MG TABLET (FP) PO SCH (10:00)
--- NOTE | 2020-03-03 10:43 | DS ---
[facility] Detox Discharge Summary Admission Date: 03/02/20 Discharge Date: 03/03/20 - History Present History: Alcohol Dependence Additional Comments: 34 years old male was admitted on 03/02/20 for alcohol withdrawal sx management treated with librium detox regiment mr jean baptiste is alert oriented x 3 speech clearly coherently ambulating with steady gaits General Appearance: Yes: no Distress, mild Tremorous, some how Irritable, no Sweating, no Anxious HEENTM: Yes: Normal ENT Inspection, FREDIS, Pharynx Normal, Other (scar left fronto parietal area) Respiratory: Yes: Lungs Clear, Normal Breath Sounds, No Respiratory Distress Neck: Yes: Within Normal Limits, Supple, Trachea in good position Breast: Yes: Within Normal Limits Cardiology: Yes: Within Normal Limits, Regular Rhythm, Regular Rate, S1, S2 Abdominal: Yes: Within Normal Limits, Normal Bowel Sounds, Non Tender, Flat, Soft, Surgical Scar Genitourinary: Yes: Within Normal Limits Back: Yes: Muscle Spasm Musculoskeletal: Yes: Back pain, Muscle Pain Extremities: Yes: Tremors Neurological: Yes: axle inspector II-XII NML intact, Fully Oriented, Alert, Motor Strength 5/5 Integumentary: Yes: Dry Lymphatic: Yes: Within Normal Limits Pertinent Past History: time for discharge 110 minutes mr jean baptiste became agitated that he wants the cane now threatening gesture abuse language toward staff security was called mr jean baptiste continue to threatening female staff administrative discharge is necessary counseling manger, community health nursing director, nurse, counselor, and engineering technical writer mr jean baptiste refuses to wait for cane and demands cane now continue threatening language patient wants to leave "this place" encourage mr jean baptiste seeking community support groups for alcohol sobriety - Physical Exam Results Vital Signs: Vital Signs Temperature 98.1 F 03/03/20 08:50 Pulse Rate 58 L 03/03/20 08:50 Respiratory Rate 18 03/03/20 08:50 Blood Pressure 129/82 03/03/20 08:50 O2 Sat by Pulse Oximetry (%) 96 03/03/20 05:03 Pertinent Admission Physical Exam Findings: alcohol withdrawal Vital Signs - 24 hr 03/02/20 03/02/20 03/03/20 16:34 20:47 05:03 Temperature 97.1 F L 97.3 F L 96.8 F L Pulse Rate 63 57 L 66 Respiratory 18 18 18 Rate Blood Pressure 136/98 122/83 129/96 O2 Sat by Pulse 100 96 Oximetry (%) 03/03/20 08:50 Temperature 98.1 F Pulse Rate 58 L Respiratory 18 Rate Blood Pressure 129/82 O2 Sat by Pulse Oximetry (%) Laboratory Tests 03/02/20 03/03/20 03/03/20 11:30 07:30 07:30 WBC 3.5 L RBC 3.87 L Hgb 13.4 Hct 38.5 MCV 99.3 H MCH 34.5 H MCHC 34.7 RDW 13.7 D Plt Count 207 MPV 9.0 D Sodium Potassium Chloride Carbon Dioxide Anion Gap BUN Creatinine Est GFR (CKD-EPI)AfAm Est GFR (CKD-EPI)NonAf Random Glucose Calcium Total Bilirubin AST ALT Alkaline Phosphatase Total Protein Albumin Syphilis Serology Non-reactive COVID-19 (JEFE) Not detected 03/03/20 07:30 WBC RBC Hgb Hct MCV MCH MCHC RDW Plt Count MPV Sodium 136 Potassium 3.4 L Chloride 100 Carbon Dioxide 32 Anion Gap 4 L BUN 12.8 Creatinine 1.0 Est GFR (CKD-EPI)AfAm 111.73 Est GFR (CKD-EPI)NonAf 96.40 Random Glucose 81 Calcium 9.1 Total Bilirubin 0.9 AST 15 ALT 30 Alkaline Phosphatase 73 Total Protein 8.0 Albumin 3.8 Syphilis Serology COVID-19 (JEFE) lab noted - Treatment Hospital Course: Detox Protocol Followed, Detoxed Safely, Responded well, Discharged Condition Good, Rehab Referral Accepted Patient has Accepted a Rehab Referral to: community support meeting and groups - Medication Discharge Medications: Ambulatory Orders Omeprazole 40 mg PO DAILY #30 capsule. 12/20/18 Ibuprofen 800 mg PO TID 01/27/19 Quetiapine Fumarate [Seroquel -] 100 mg PO HS #30 tablet 01/29/19 Amlodipine Besylate 2.5 mg PO DAILY #30 tablet 03/03/20 levETIRAcetam [Keppra -] 500 mg PO BID #60 tablet 03/03/20 - Diagnosis (1) GERD (gastroesophageal reflux disease) Current Visit: Yes Status: Chronic Qualifiers: Esophagitis presence: without esophagitis Qualified Code(s): K21.9 - Gastro-esophageal reflux disease without esophagitis (2) Alcohol dependence with uncomplicated withdrawal Current Visit: Yes Status: Acute (3) Nicotine dependence Current Visit: Yes Status: Acute Qualifiers: Nicotine product type: cigarettes Substance use status: in withdrawal Qualified Code(s): F17.213 - Nicotine dependence, cigarettes, with withdrawal (4) GERD (gastroesophageal reflux disease) Current Visit: Yes Status: Chronic Qualifiers: Esophagitis presence: without esophagitis Qualified Code(s): K21.9 - Gastro-esophageal reflux disease without esophagitis (5) Essential hypertension Current Visit: Yes Status: Chronic (6) Seizure Current Visit: Yes Status: Chronic - AMA Did Patient Leave Against Medical Advice: No CIWA Score - CIWA Score Nausea/Vomitin-Mild Nausea/No Vomiting Muscle Tremors: 2 Anxiety: 2 Agitation: 2 Paroxysmal Sweats: 1-Minimal Palms Moist Orientation: 0-Oriented Tacttile Disturbances: 0-None Auditory Disturbances: 0-None Visual Disturbances: 0-None Headache: 2-Mild CIWA-Ar Total Score: 10
[2020-03-03] MEDS: levETIRAcetam 500 MG TABLET (FP) PO SCH (11:07)
[2020-03-03] MEDS: NICOTINE 21 MG/24 HOURS TOPICAL PATCH TD SCH (11:07)
[2020-03-04] MEDS ORDERED: chlordiazePOXIDE HCL 25 MG CAPSULE PO SCH (05:00)
[2020-03-05] MEDS ORDERED: chlordiazePOXIDE HCL 10 MG CAPSULE PO PRN
[2020-03-05] MEDS ORDERED: chlordiazePOXIDE HCL 10 MG CAPSULE PO SCH (05:00)
[2020-03-06] MEDS ORDERED: chlordiazePOXIDE HCL 10 MG CAPSULE PO SCH (05:00)
[2020-03-07] MEDS ORDERED: chlordiazePOXIDE HCL 10 MG CAPSULE PO ONE (05:00)
== END 2020-03-03 15:51 | disposition left against medical advice (07) | DRG 774 ==
LOC: YASAS 09:39 → Y3N 12:27
PROVIDERS: ADMIT Allergy & Immunology; ATTEND Allergy & Immunology
PROC: HZ2ZZZZ Detoxification Services for Substance Abuse Treatment (ICD-10-PCS; principal; 2020-03-02)
DX: F10.230 Alcohol dependence with withdrawal, uncomplicated (principal); F14.20 Cocaine dependence, uncomplicated; F12.20 Cannabis dependence, uncomplicated; F16.10 Hallucinogen abuse, uncomplicated; F17.213 Nicotine dependence, cigarettes, with withdrawal; F20.9 Schizophrenia, unspecified; G40.909 Epilepsy, unspecified, not intractable, without status epilepticus; I10 Essential (primary) hypertension; K21.9 Gastro-esophageal reflux disease without esophagitis; F91.8 Other conduct disorders; Z91.19 Patient's noncompliance with other medical treatment and regimen; Z87.820 Personal history of traumatic brain injury; Z98.890 Other specified postprocedural states; Z56.0 Unemployment, unspecified; Z59.0 Homelessness
CPT/HCPCS: 36415; 80053; 85027; 86780; U0003

== ENCOUNTER 2020-10-09 12:41 | Inpatient (IN) | payer OTHER ==
[2020-10-09 15:04] VITALS: BMI 23.6
[2020-10-09] MEDS ORDERED: MAG HYDROX/AL HYDROX/SIMETH 30 ML UNIT-DOSE CUP PO PRN (15:35)
[2020-10-09] MEDS ORDERED: MAGNESIUM CITRATE 300 ML BOTTLE PO PRN (15:35)
[2020-10-09] MEDS ORDERED: ACETAMINOPHEN 325 MG TABLET (FP) PO PRN (15:35)
[2020-10-09] MEDS ORDERED: ONDANSETRON *ODT* 4 MG TABLET SL PRN (15:35)
[2020-10-09] MEDS ORDERED: MAGNESIUM HYDROX 2400MG/30ML ORAL SUSPENSION 30 ML CUP PO PRN (15:35)
[2020-10-09] MEDS ORDERED: NICOTINE POLACRILEX 2 MG GUM BUC PRN (15:35)
[2020-10-09] MEDS ORDERED: IBUPROFEN 400 MG TABLET (FP) PO PRN (15:35)
[2020-10-09] MEDS ORDERED: MENTHOL/PHENOL 1 EACH UD MM PRN (15:35)
[2020-10-09] MEDS ORDERED: BISMUTH SUBSALICYLATE 524 MG/30 ML UD PO PRN (15:35)
[2020-10-09] MEDS ORDERED: chlordiazePOXIDE HCL 25 MG CAPSULE PO PRN (15:43)
[2020-10-09] MEDS: chlordiazePOXIDE HCL 25 MG CAPSULE PO SCH ×2 (17:30→22:03)
[2020-10-09] MEDS: PRENATAL VITAMINS W/ FOLIC ACID TABLET (FP) PO SCH (17:31)
[2020-10-09] MEDS: NICOTINE 14 MG/24 HOURS TOPICAL PATCH TD SCH (17:31)
[2020-10-09] MEDS: hydrOXYzine PAMOATE 25 MG CAPSULE (FP) PO SCH ×2 (17:34→22:55)
[2020-10-09] MEDS: levETIRAcetam 500 MG TABLET (FP) PO SCH (22:03)
[2020-10-09] MEDS: THIAMINE HCL 100 MG TABLET (FP) PO SCH (22:03)
[2020-10-09] MEDS: MELATONIN 5 MG TABLETS PO SCH (22:04)
[2020-10-10] MEDS: hydrOXYzine PAMOATE 25 MG CAPSULE (FP) PO SCH ×5 (05:27→22:30)
[2020-10-10] MEDS: chlordiazePOXIDE HCL 25 MG CAPSULE PO SCH ×4 (05:28→22:30)
[2020-10-10] MEDS: ACETAMINOPHEN 325 MG TABLET (FP) PO PRN ×3 (07:35→22:29)
[2020-10-10] MEDS: amLODIPine BESYLATE 5 MG TABLET (FP) PO SCH (10:01)
[2020-10-10] MEDS: PRENATAL VITAMINS W/ FOLIC ACID TABLET (FP) PO SCH (10:02)
[2020-10-10] MEDS: NICOTINE 14 MG/24 HOURS TOPICAL PATCH TD SCH (10:02)
[2020-10-10] MEDS: PANTOPRAZOLE 40 MG TABLET PO SCH (10:02)
[2020-10-10] MEDS: levETIRAcetam 500 MG TABLET (FP) PO SCH ×2 (10:02→22:27)
[2020-10-10 11:04] LABS: HEMATOCRIT 36.9 % (35.4-49); HEMOGLOBIN 12.8 GM/dL (11.7-16.9); MCH 33.8 pg (25.7-33.7); MCHC 34.8 g/dl (32.0-35.9); MEAN CELL VOLUME 97.3 fl (80-96); MEAN PLT VOLUME 8.8 fl (7.5-11.1); PLATELET COUNT 242 K/MM3 (134-434); RBC 3.79 M/mm3 (4.00-5.60); RDW 14.8 % (11.9-15.9); WHITE BLOOD COUNT 3.9 K/mm3 (4.0-10.0)
[2020-10-10 11:08] LABS: CALCIUM 8.8 mg/dL (8.5-10.1)
[2020-10-10 11:09] LABS: BLOOD UREA NITROGEN 15.1 mg/dL (7-18)
[2020-10-10 11:12] LABS: CREATININE 0.8 mg/dL (0.55-1.3)
[2020-10-10 11:13] LABS: BILIRUBIN,TOTAL 0.5 mg/dL (0.2-1); TOT PROT 7.5 g/dl (6.4-8.2)
[2020-10-10] MEDS: METHOCARBAMOL 500 MG TABLET PO PRN (14:04)
[2020-10-10 18:38] LABS: HIV INTERPRETATION NEGATIVE (NEGATIVE)
[2020-10-10] MEDS: IBUPROFEN 600 MG TABLET (FP) PO PRN (20:04)
[2020-10-10] MEDS: QUEtiapine FUMARATE 100 MG TABLET (FP) PO SCH (22:27)
[2020-10-10] MEDS: THIAMINE HCL 100 MG TABLET (FP) PO SCH (22:27)
[2020-10-10] MEDS: MELATONIN 5 MG TABLETS PO SCH (22:27)
[2020-10-11] MEDS: ACETAMINOPHEN 325 MG TABLET (FP) PO PRN ×2 (03:46→13:31)
[2020-10-11] MEDS: chlordiazePOXIDE HCL 25 MG CAPSULE PO SCH ×4 (04:31→22:39)
[2020-10-11] MEDS: hydrOXYzine PAMOATE 25 MG CAPSULE (FP) PO SCH ×5 (05:26→22:39)
[2020-10-11] MEDS: METHOCARBAMOL 500 MG TABLET PO PRN (06:13)
[2020-10-11] MEDS: IBUPROFEN 600 MG TABLET (FP) PO PRN ×2 (06:14→17:35)
[2020-10-11] MEDS: levETIRAcetam 500 MG TABLET (FP) PO SCH ×2 (10:31→21:54)
[2020-10-11] MEDS: NICOTINE 14 MG/24 HOURS TOPICAL PATCH TD SCH (10:31)
[2020-10-11] MEDS: amLODIPine BESYLATE 5 MG TABLET (FP) PO SCH (10:32)
[2020-10-11] MEDS: PRENATAL VITAMINS W/ FOLIC ACID TABLET (FP) PO SCH (10:32)
[2020-10-11] MEDS: PANTOPRAZOLE 40 MG TABLET PO SCH (10:32)
[2020-10-11] MEDS: MELATONIN 5 MG TABLETS PO SCH (21:54)
[2020-10-11] MEDS: QUEtiapine FUMARATE 100 MG TABLET (FP) PO SCH (21:54)
[2020-10-11] MEDS: THIAMINE HCL 100 MG TABLET (FP) PO SCH (22:39)
[2020-10-12] MEDS ORDERED: chlordiazePOXIDE HCL 10 MG CAPSULE PO PRN
[2020-10-12] MEDS: chlordiazePOXIDE HCL 10 MG CAPSULE PO SCH ×4 (05:20→22:48)
[2020-10-12] MEDS: hydrOXYzine PAMOATE 25 MG CAPSULE (FP) PO SCH ×6 (05:20→22:48)
[2020-10-12 06:10] LABS: SARS-CoV-2 NAA Not Detected (Not Detected)
[2020-10-12] MEDS: IBUPROFEN 600 MG TABLET (FP) PO PRN ×2 (07:26→14:02)
[2020-10-12] MEDS: levETIRAcetam 500 MG TABLET (FP) PO SCH ×2 (10:50→22:48)
[2020-10-12] MEDS: PRENATAL VITAMINS W/ FOLIC ACID TABLET (FP) PO SCH (10:51)
[2020-10-12] MEDS: NICOTINE 14 MG/24 HOURS TOPICAL PATCH TD SCH (10:51)
[2020-10-12] MEDS: amLODIPine BESYLATE 5 MG TABLET (FP) PO SCH (10:51)
[2020-10-12] MEDS: PANTOPRAZOLE 40 MG TABLET PO SCH (10:51)
[2020-10-12] MEDS: METHOCARBAMOL 500 MG TABLET PO PRN (22:48)
[2020-10-12] MEDS: THIAMINE HCL 100 MG TABLET (FP) PO SCH (22:48)
[2020-10-12] MEDS: QUEtiapine FUMARATE 100 MG TABLET (FP) PO SCH (22:48)
[2020-10-12] MEDS: MELATONIN 5 MG TABLETS PO SCH (22:48)
[2020-10-13] MEDS: chlordiazePOXIDE HCL 10 MG CAPSULE PO SCH ×2 (06:48→16:31)
[2020-10-13] MEDS: hydrOXYzine PAMOATE 25 MG CAPSULE (FP) PO SCH ×5 (06:49→22:00)
[2020-10-13] MEDS: METHOCARBAMOL 500 MG TABLET PO PRN ×3 (08:02→22:00)
[2020-10-13] MEDS: PANTOPRAZOLE 40 MG TABLET PO SCH (10:16)
[2020-10-13] MEDS: levETIRAcetam 500 MG TABLET (FP) PO SCH ×2 (10:16→22:00)
[2020-10-13] MEDS: amLODIPine BESYLATE 5 MG TABLET (FP) PO SCH (10:16)
[2020-10-13] MEDS: PRENATAL VITAMINS W/ FOLIC ACID TABLET (FP) PO SCH (10:17)
[2020-10-13] MEDS: NICOTINE 14 MG/24 HOURS TOPICAL PATCH TD SCH (10:17)
[2020-10-13] MEDS: IBUPROFEN 600 MG TABLET (FP) PO PRN ×2 (16:30→22:01)
[2020-10-13] MEDS: ACETAMINOPHEN 325 MG TABLET (FP) PO PRN (19:13)
[2020-10-13] MEDS: THIAMINE HCL 100 MG TABLET (FP) PO SCH (22:00)
[2020-10-13] MEDS: QUEtiapine FUMARATE 100 MG TABLET (FP) PO SCH (22:00)
[2020-10-13] MEDS: MELATONIN 5 MG TABLETS PO SCH (22:00)
[2020-10-14] MEDS ORDERED: chlordiazePOXIDE HCL 10 MG CAPSULE PO ONE (05:00)
[2020-10-14] MEDS: hydrOXYzine PAMOATE 25 MG CAPSULE (FP) PO SCH ×2 (05:55→10:13)
[2020-10-14] MEDS: levETIRAcetam 500 MG TABLET (FP) PO SCH (10:12)
[2020-10-14] MEDS: PRENATAL VITAMINS W/ FOLIC ACID TABLET (FP) PO SCH (10:12)
[2020-10-14] MEDS: METHOCARBAMOL 500 MG TABLET PO PRN (10:12)
[2020-10-14] MEDS: IBUPROFEN 600 MG TABLET (FP) PO PRN (10:12)
[2020-10-14] MEDS: amLODIPine BESYLATE 5 MG TABLET (FP) PO SCH (10:12)
[2020-10-14] MEDS: PANTOPRAZOLE 40 MG TABLET PO SCH (10:12)
[2020-10-14] MEDS: NICOTINE 14 MG/24 HOURS TOPICAL PATCH TD SCH (10:14)
[2020-10-14 11:00] VITALS: BP 121/82; PULSE 81; TEMP 98.2
== END 2020-10-14 13:35 | disposition other institution (70) | DRG 774 ==
LOC: YASAS 12:41 → Y6N 16:12
PROVIDERS: ADMIT Allergy & Immunology; ATTEND Allergy & Immunology
PROC: HZ2ZZZZ Detoxification Services for Substance Abuse Treatment (ICD-10-PCS; principal; 2020-10-09)
DX: F10.230 Alcohol dependence with withdrawal, uncomplicated (principal); F14.20 Cocaine dependence, uncomplicated; F16.20 Hallucinogen dependence, uncomplicated; F12.20 Cannabis dependence, uncomplicated; F17.220 Nicotine dependence, chewing tobacco, uncomplicated; F19.24 Other psychoactive substance dependence with psychoactive substance-induced mood disorder; F31.9 Bipolar disorder, unspecified; F19.282 Other psychoactive substance dependence with psychoactive substance-induced sleep disorder; K21.9 Gastro-esophageal reflux disease without esophagitis; R74.01 Elevation of levels of liver transaminase levels; R74.8 Abnormal levels of other serum enzymes; Z99.89 Dependence on other enabling machines and devices; Z98.890 Other specified postprocedural states
CPT/HCPCS: 36415; 80053; 85027; 86780; 87389; C9803; U0003; U0005

== ENCOUNTER 2020-10-14 13:54 | Inpatient (IN) | payer OTHER ==
[2020-10-14] MEDS ORDERED: LOPERAMIDE HCL 2 MG CAPSULE PO PRN (14:48)
[2020-10-14] MEDS ORDERED: hydrOXYzine PAMOATE 25 MG CAPSULE (FP) PO PRN (14:48)
[2020-10-14] MEDS ORDERED: MAGNESIUM CITRATE 300 ML BOTTLE PO PRN (14:48)
[2020-10-14] MEDS ORDERED: MAGNESIUM HYDROX 2400MG/30ML ORAL SUSPENSION 30 ML CUP PO PRN (14:48)
[2020-10-14] MEDS ORDERED: MAG HYDROX/AL HYDROX/SIMETH 30 ML UNIT-DOSE CUP PO PRN (14:48)
[2020-10-14] MEDS ORDERED: P-EPHED 60MG/TRIPROLIDI 2.5MG TABLET PO PRN (14:48)
[2020-10-14] MEDS ORDERED: guaiFENesin 200 MG/10 ML 10 ML UNIT-DOSE CUPS PO PRN (14:48)
[2020-10-14] MEDS ORDERED: MENTHOL/PHENOL 1 EACH UD MM PRN (14:48)
[2020-10-14] MEDS ORDERED: NICOTINE POLACRILEX 2 MG GUM BUC PRN (14:48)
[2020-10-14] MEDS: IBUPROFEN 400 MG TABLET (FP) PO PRN (16:44)
[2020-10-14] MEDS: ACETAMINOPHEN 325 MG TABLET (FP) PO PRN (20:19)
[2020-10-14] MEDS: THIAMINE HCL 100 MG TABLET (FP) PO SCH (21:25)
[2020-10-14] MEDS: levETIRAcetam 500 MG TABLET (FP) PO SCH (21:25)
[2020-10-14] MEDS: QUEtiapine FUMARATE 100 MG TABLET (FP) PO SCH (21:25)
[2020-10-14] MEDS: MELATONIN 5 MG TABLETS PO SCH (21:25)
[2020-10-15] MEDS: IBUPROFEN 400 MG TABLET (FP) PO PRN ×2 (04:23→10:19)
[2020-10-15] MEDS ORDERED: NICOTINE 7 MG/24 HOURS TOPICAL PATCH TD SCH (10:00)
[2020-10-15] MEDS ORDERED: SERTRALINE HCL 50 MG TABLET (FP) PO SCH (10:00)
[2020-10-15] MEDS: amLODIPine BESYLATE 5 MG TABLET (FP) PO SCH (10:18)
[2020-10-15] MEDS: PANTOPRAZOLE 40 MG TABLET PO SCH (10:18)
[2020-10-15] MEDS: levETIRAcetam 500 MG TABLET (FP) PO SCH ×2 (10:18→21:03)
[2020-10-15] MEDS: PRENATAL VITAMINS W/ FOLIC ACID TABLET (FP) PO SCH (10:18)
[2020-10-15] MEDS: NICOTINE 14 MG/24 HOURS TOPICAL PATCH TD SCH (10:18)
[2020-10-15] MEDS: THIAMINE HCL 100 MG TABLET (FP) PO SCH (21:03)
[2020-10-15] MEDS: QUEtiapine FUMARATE 100 MG TABLET (FP) PO SCH (21:03)
[2020-10-15] MEDS: MELATONIN 5 MG TABLETS PO SCH (21:04)
[2020-10-16] MEDS: IBUPROFEN 400 MG TABLET (FP) PO PRN (06:19)
[2020-10-16] MEDS: PANTOPRAZOLE 40 MG TABLET PO SCH (10:24)
[2020-10-16] MEDS: levETIRAcetam 500 MG TABLET (FP) PO SCH ×2 (10:24→21:28)
[2020-10-16] MEDS: amLODIPine BESYLATE 5 MG TABLET (FP) PO SCH (10:24)
[2020-10-16] MEDS: PRENATAL VITAMINS W/ FOLIC ACID TABLET (FP) PO SCH (10:24)
[2020-10-16] MEDS: NICOTINE 14 MG/24 HOURS TOPICAL PATCH TD SCH (10:24)
[2020-10-16] MEDS: MELATONIN 5 MG TABLETS PO SCH (21:28)
[2020-10-16] MEDS: QUEtiapine FUMARATE 100 MG TABLET (FP) PO SCH (21:28)
[2020-10-16] MEDS: THIAMINE HCL 100 MG TABLET (FP) PO SCH (21:28)
[2020-10-17] MEDS: IBUPROFEN 400 MG TABLET (FP) PO PRN ×2 (05:31→14:58)
[2020-10-17] MEDS: PANTOPRAZOLE 40 MG TABLET PO SCH (10:12)
[2020-10-17] MEDS: amLODIPine BESYLATE 5 MG TABLET (FP) PO SCH (10:12)
[2020-10-17] MEDS: PRENATAL VITAMINS W/ FOLIC ACID TABLET (FP) PO SCH (10:12)
[2020-10-17] MEDS: NICOTINE 14 MG/24 HOURS TOPICAL PATCH TD SCH (10:12)
[2020-10-17] MEDS: levETIRAcetam 500 MG TABLET (FP) PO SCH ×2 (10:12→21:26)
[2020-10-17] MEDS: MELATONIN 5 MG TABLETS PO SCH (21:26)
[2020-10-17] MEDS: THIAMINE HCL 100 MG TABLET (FP) PO SCH (21:26)
[2020-10-17] MEDS: QUEtiapine FUMARATE 100 MG TABLET (FP) PO SCH (21:26)
[2020-10-18] MEDS: IBUPROFEN 400 MG TABLET (FP) PO PRN ×2 (04:13→15:53)
[2020-10-18] MEDS: levETIRAcetam 500 MG TABLET (FP) PO SCH ×2 (09:53→21:05)
[2020-10-18] MEDS: PANTOPRAZOLE 40 MG TABLET PO SCH (09:53)
[2020-10-18] MEDS: amLODIPine BESYLATE 5 MG TABLET (FP) PO SCH (09:53)
[2020-10-18] MEDS: NICOTINE 14 MG/24 HOURS TOPICAL PATCH TD SCH (09:53)
[2020-10-18] MEDS: PRENATAL VITAMINS W/ FOLIC ACID TABLET (FP) PO SCH (09:53)
[2020-10-18] MEDS: MELATONIN 5 MG TABLETS PO SCH (21:05)
[2020-10-18] MEDS: QUEtiapine FUMARATE 100 MG TABLET (FP) PO SCH (21:05)
[2020-10-18] MEDS: THIAMINE HCL 100 MG TABLET (FP) PO SCH (21:05)
[2020-10-19] MEDS: ACETAMINOPHEN 325 MG TABLET (FP) PO PRN (06:40)
[2020-10-19 07:22] VITALS: BP 122/76; PULSE 79; TEMP 97.3
[2020-10-19] MEDS: PANTOPRAZOLE 40 MG TABLET PO SCH (09:40)
[2020-10-19] MEDS: NICOTINE 14 MG/24 HOURS TOPICAL PATCH TD SCH (09:40)
[2020-10-19] MEDS: levETIRAcetam 500 MG TABLET (FP) PO SCH (09:40)
[2020-10-19] MEDS: PRENATAL VITAMINS W/ FOLIC ACID TABLET (FP) PO SCH (09:40)
[2020-10-19] MEDS: amLODIPine BESYLATE 5 MG TABLET (FP) PO SCH (09:40)
== END 2020-10-19 10:06 | disposition home or self-care (01) | DRG 772 ==
LOC: YASAS 13:54 → Y3W 13:56
PROVIDERS: ADMIT Allergy & Immunology; ATTEND Allergy & Immunology
PROC: HZ42ZZZ Group Counseling for Substance Abuse Treatment, Cognitive-Behavioral (ICD-10-PCS; principal; 2020-10-14)
DX: F10.20 Alcohol dependence, uncomplicated (principal); F14.20 Cocaine dependence, uncomplicated; F16.20 Hallucinogen dependence, uncomplicated; F12.10 Cannabis abuse, uncomplicated; F31.9 Bipolar disorder, unspecified; F20.9 Schizophrenia, unspecified; I10 Essential (primary) hypertension; G43.909 Migraine, unspecified, not intractable, without status migrainosus; G40.909 Epilepsy, unspecified, not intractable, without status epilepticus; K21.9 Gastro-esophageal reflux disease without esophagitis; Z87.11 Personal history of peptic ulcer disease
CPT/HCPCS: C9803; U0003; U0005